=== PATIENT | female | born 1970 | race Caucasian/White ===

== ENCOUNTER 2021-05-21 11:23 | Outpatient (REF) | payer OTHER, SELFPAY ==
[2021-05-21 12:31] LABS: Influenza A PCR NEGATIVE (Negative); Influenza B PCR NEGATIVE (Negative); Resp Syncy Virus RNA Qual PCR NEGATIVE (Negative); SARS COV2 PCR INHOUSE POSITIVE (Negative)
== END 2021-05-21 11:24 | disposition home or self-care (01) ==
LOC: HO.LNP 11:23
PROVIDERS: Visit Provider Internal Medicine
DX: Z20.822 Contact with and (suspected) exposure to COVID-19 (principal); R43.9 Unspecified disturbances of smell and taste
CPT/HCPCS: 0241U

== ENCOUNTER 2021-08-05 07:37 | Outpatient (REF) | payer OTHER, SELFPAY ==
[2021-08-05 11:17] LABS: MANUAL DIFF FLAG NO
[2021-08-05 11:23] LABS: Basophils Absolute Auto 0.1 X10*3/uL (0.0-0.2); Eosinophils Absolute Auto 0.1 X10*3/uL (0.0-0.4); Eosinophils Percent Auto 2.1 % (0-4); Hematocrit 41.1 % (37.0-47.0); Hemoglobin 13.4 g/dl (12.0-16.0); Imm Gran Abs Auto 0.01 X10*3/uL (0.00-0.03); Imm Gran Pct Auto 0.2 % (0.0-0.4); Lymphocytes Absolute Auto 1.8 X10*3/uL (1.2-4.9); Lymphocytes Percent Auto 37.1 % (20-40); Mean Corpuscular HGB Conc 32.6 g/dl (31.0-35.0); Mean Corpuscular Volume 91.9 fL (80.0-98.0); Mean Platelet Volume 9.8 fL (9.4-12.3); Monocytes Absolute Auto 0.4 X10*3/uL (0.1-1.2); Monocytes Percent Auto 8.5 % (2-11); Neutrophils Absolute Auto 2.5 x10*3/uL (2.0-8.3); Neutrophils Percent Auto 51.1 % (45-73); Platelet Count 290 X10*3/uL (160-400); Red Blood Count 4.47 X10*6/uL (4.20-5.50); Red Cell Distribution Width 13.1 % (11.0-16.0); White Blood Count 4.8 X10*3/uL (4.8-10.8)
[2021-08-05 11:33] LABS: Alanine Aminotransferase 18 U/L (0-31); Albumin Level 4.5 g/dL (3.5-5.0); Alkaline Phosphatase 60 U/L (39-117); Anion Gap 10 (12-20); Aspartate Amino Transferase 17 U/L (5-31); Bilirubin Total 0.6 mg/dL (0.0-1.0); Blood Urea Nitrogen 16 mg/dL (9-16); Carbon Dioxide 28 mmol/L (22-29); Chloride 104 mmol/L (96-108); Cholesterol 206 mg/dL; Estimated Glomerular Filt Rate > 60; Glucose Fasting 96 mg/dL (60-99); HDL Cholesterol 58 mg/dL; LDL Cholesterol Calculated 120 mg/dl; Potassium 4.2 mmol/L (3.3-5.1); Sodium 138 mmol/L (135-145); Total Protein 7.6 g/dL (6.5-8.0); Triglycerides 140 mg/dL
[2021-08-05 11:58] LABS: TSH reflex Free T4 2.01 uIU/mL (0.32-4.0)
== END 2021-08-05 07:38 | disposition home or self-care (01) ==
LOC: HO.HMGCLDS 07:37
PROVIDERS: Visit Provider Internal Medicine
DX: E03.8 Other specified hypothyroidism (principal); F33.9 Major depressive disorder, recurrent, unspecified; I44.7 Left bundle-branch block, unspecified; J30.9 Allergic rhinitis, unspecified; Z91.09 Other allergy status, other than to drugs and biological substances; Z76.89 Persons encountering health services in other specified circumstances
CPT/HCPCS: 36415; 80053; 80061; 84443; 85025

== ENCOUNTER 2021-09-03 12:49 | Outpatient (REF) | payer OTHER, SELFPAY ==
--- NOTE | ~2021-09-03 | US_ITS ---
EXAMINATION: US THYROID CLINICAL INFORMATION: Other specified hypothyroidism. COMPARISON: None TECHNIQUE: Linear transducer grayscale and color Doppler examination with attention to the region of the thyroid. FINDINGS: SIZE: Measurements of the thyroid lobes and nodules are given in sagittal, anteroposterior and transverse dimensions respectively. Right Thyroid Lobe: 3.5 x 0.5 x 0.7 cm, volume 0.6 mL. Parenchyma: The gland echotexture is homogeneous. Thyroid vascularity is normal. Left Thyroid Lobe: 2.4 x 0.7 x 0.9 cm, volume 0.8 mL. Parenchyma: The gland echotexture is homogeneous. Thyroid vascularity is normal. Isthmus: 0.09 cm in maximum AP dimension. No focal thyroid nodule is seen. NODES: No lymphadenopathy is seen in the tissue surrounding the thyroid gland. US/US thyroid IMPRESSION: Very small thyroid gland.
== END 2021-09-03 12:50 | disposition home or self-care (01) ==
LOC: HO.HMGCX 12:49
PROVIDERS: Visit Provider Internal Medicine
DX: E01.0 Iodine-deficiency related diffuse (endemic) goiter (principal)
CPT/HCPCS: 76536

== ENCOUNTER → 2021-11-26 13:22 | Outpatient (BNVA) | payer OTHER, SELFPAY | PROVIDERS: PCP Internal Medicine; Visit Provider Nurse Practitioner Family | DX: M62.838 Other muscle spasm (principal); M47.814 Spondylosis without myelopathy or radiculopathy, thoracic region; Z87.81 Personal history of (healed) traumatic fracture | CPT/HCPCS: 99202 ==

== ENCOUNTER → 2021-12-24 14:55 | Outpatient (BNVA) | payer OTHER, SELFPAY | PROVIDERS: PCP Internal Medicine; Visit Provider Hospitalist | DX: R91.8 Other nonspecific abnormal finding of lung field (principal); J45.909 Unspecified asthma, uncomplicated; R06.00 Dyspnea, unspecified; S27.0XXD Traumatic pneumothorax, subsequent encounter; Z72.0 Tobacco use | CPT/HCPCS: 99202 ==

== ENCOUNTER → 2022-04-15 09:54 | Outpatient (BNVA) | payer OTHER, SELFPAY | PROVIDERS: PCP Internal Medicine; Visit Provider Nurse Practitioner Family | DX: Z12.11 Encounter for screening for malignant neoplasm of colon (principal); K59.01 Slow transit constipation | CPT/HCPCS: 99202 ==

== ENCOUNTER 2022-07-15 10:17 | Day surgery (SDC) | payer OTHER, SELFPAY ==
[2022-07-09 15:32] VITALS: BMI 24.3
--- NOTE | 2022-07-14 13:13 | HO.ANESPROP2 ---
Documented by User: Danay Goldberg NP 07/14/22 13:19 HPI - Anesthesia Eval Consult details Narrative: 52yo F for Colonoscopy Cardiac cleared PMF Active Problems Active Problems: All Active Problems (Updated 07/09/22 @ 15:19 by Tina Boyle, RN) Upper respiratory tract infection (Acute) Establishing care with new doctor, encounter for (Acute) Allergic rhinitis (Acute) Environmental allergies (Acute) Major depression, recurrent (Acute) Other specified hypothyroidism (Acute) Left bundle branch block (Acute) Thyromegaly (Acute) Colon cancer screening (Acute) Mid back pain (Acute) Traumatic fracture of thoracic spine (Acute) Lung nodule < 6cm on CT (Acute) H/O compression fracture of spine (Acute) Muscle spasm (Acute) Spondylosis of thoracic spine (Acute) Pulmonary nodules (Acute) Current every day nicotine vaping (Acute) Dyspnea (Acute) Acute pharyngitis (Acute) SARS-CoV-2 positive (Acute) Past Medical History Medical History (Updated 07/15/22 @ 11:19 by Bethany Loo MD) Anxiety Back pain Depression History of COVID-19 History of fractured vertebra Hyperlipidemia Hypothyroid Left bundle branch block Non-ischemic cardiomyopathy Pneumothorax, closed, traumatic Pulmonary nodules Sleep apnea Family History Family History Father Hypertension COPD (chronic obstructive pulmonary disease) Mother Hypertension Hypothyroid Surgical History Surgical History (Updated 07/09/22 @ 15:32 by Tina Boyle RN) Hx of cardiac catheterization Social History Social History Housing: House Patient Tobacco Use Status: Former Tobacco user Tobacco use type: Cigarette Years Smoked: 5 Years e-Cigarette/Vaping Use: Currently Using Use of substances other than those prescribed or required for medical reasons: No Have you been hit, kicked, punched, or otherwise hurt by someone within the past year? If so, by whom?: No Are you DNR?: No Advance Directives: No Advance Directives Information Provided: Yes (brochure mailed) Advance Directives on File: No Recently lost weight without trying: No Eating poorly because of decreased appetite: No Nutrition Risks: No Nutritional Risk Current occupational status: employed Cognitive needs: No Hearing needs: No Vision needs: Yes Meds Allergies Allergy/AdvReac Type Severity Reaction Status Date / Time penicillin V Allergy Mild hives Verified 04/25/22 13:02 Sulfa (Sulfonamide Allergy Mild hives Verified 04/25/22 13:02 Antibiotics) Home Medications Medication Instructions Recorded Confirmed Last Taken Type metoprolol succinate 25 mg 12.5 mg PO BEDTIME 05/21/21 07/09/22 Unknown History tablet,extended release 24 hr sacubitril 24 mg-valsartan 26 mg 1 tab PO BID 05/21/21 07/09/22 Unknown History tablet (Entresto) spironolactone 25 mg tablet 25 mg PO BEDTIME 05/21/21 07/09/22 Unknown History atorvastatin 10 mg tablet 10 mg PO BEDTIME 07/09/22 07/09/22 Unknown History bupropion HCl 150 mg 24 hr tablet, 150 mg PO QAM 07/09/22 07/09/22 Unknown History extended release duloxetine 20 mg capsule,delayed 20 mg PO BEDTIME 07/09/22 07/09/22 Unknown History release fluticasone propionate 50 1 spray intranasal DAILY 07/09/22 07/09/22 Unknown History mcg/actuation nasal spray,suspension levothyroxine 100 mcg tablet 100 mcg PO QAM 07/09/22 07/09/22 Unknown History Exam Exam Date and Time: July 14, 2022 1313 Height,Weight and Vital Signs: Height 5 ft 3 in Weight 62.142 kg Pertinent Lab Results Pertinent Lab Results: CMP 04/2022 from outside facility WNL Narrative Narrative: EKG 05/2022 NSR @ 84 LBBB No change from 11/2020 ECHO 10/2021 1. Nml LV size and wall thickness. Global hypokinesis. Abnormal septal motion 2. Mildly reduced LV systolic function. LVEF 40-45%. E-A reversal consistent with mild diastolic relaxation abnormality. 3. RV is normal in size and systolic function 4. Mild mitral regurg 5. LVEF has improved compared with 04/2020 Cardiac cath 05/2020: Nml coronary arteries. Nonischemic cardiomyopathy Assessment and Plan Assessment Anesthesia Assessment: Chart Reviewed Documented by User: Bethany Loo MD 07/15/22 12:06 [facility] Active Problems Active Problems: All Active Problems (Updated 07/09/22 @ 15:19 by Tina Boyle, RN) Establishing care with new doctor, encounter for (Acute) Allergic rhinitis (Acute) Environmental allergies (Acute) Major depression, recurrent (Acute) Other specified hypothyroidism (Acute) Left bundle branch block (Acute) Thyromegaly (Acute) Colon cancer screening (Acute) Mid back pain (Acute) Traumatic fracture of thoracic spine (Acute) Lung nodule < 6cm on CT (Acute) H/O compression fracture of spine (Acute) Muscle spasm (Acute) Spondylosis of thoracic spine (Acute) Pulmonary nodules (Acute) Current every day nicotine vaping (Acute) H/o heart failure. EF 40-45% FABBY. Not using CPAP. Unable to tolerate in the past Past Medical History Medical History (Updated 07/15/22 @ 11:19 by Bethany Loo MD) Anxiety Back pain Depression History of COVID-19 History of fractured vertebra Hyperlipidemia Hypothyroid Left bundle branch block Non-ischemic cardiomyopathy Pneumothorax, closed, traumatic Pulmonary nodules Sleep apnea Family History Family History Father Hypertension COPD (chronic obstructive pulmonary disease) Mother Hypertension Hypothyroid Family history of problems with anesthesia: No Surgical History Surgical History (Updated 07/09/22 @ 15:32 by Tina Boyle, BELLA) Hx of cardiac catheterization History of Problems with Anesthesia: No Social History Social History Housing: House Patient Tobacco Use Status: Former Tobacco user Tobacco use type: Cigarette Years Smoked: 5 Years e-Cigarette/Vaping Use: Currently Using Use of substances other than those prescribed or required for medical reasons: No Have you been hit, kicked, punched, or otherwise hurt by someone within the past year? If so, by whom?: No Are you DNR?: No Advance Directives: No Advance Directives Information Provided: Yes (brochure mailed) Advance Directives on File: No Recently lost weight without trying: No Eating poorly because of decreased appetite: No Nutrition Risks: No Nutritional Risk Current occupational status: employed Cognitive needs: No Hearing needs: No Vision needs: Yes Meds Allergies Allergy/AdvReac Type Severity Reaction Status Date / Time penicillin V Allergy Mild hives Verified 04/25/22 13:02 Sulfa (Sulfonamide Allergy Mild hives Verified 04/25/22 13:02 Antibiotics) Home Medications Medication Instructions Recorded Confirmed Last Taken Type metoprolol succinate 25 mg 12.5 mg PO BEDTIME 05/21/21 07/09/22 Unknown History tablet,extended release 24 hr sacubitril 24 mg-valsartan 26 mg 1 tab PO BID 05/21/21 07/09/22 Unknown History tablet (Entresto) spironolactone 25 mg tablet 25 mg PO BEDTIME 05/21/21 07/09/22 Unknown History atorvastatin 10 mg tablet 10 mg PO BEDTIME 07/09/22 07/09/22 Unknown History bupropion HCl 150 mg 24 hr tablet, 150 mg PO QAM 07/09/22 07/09/22 Unknown History extended release duloxetine 20 mg capsule,delayed 20 mg PO BEDTIME 07/09/22 07/09/22 Unknown History release fluticasone propionate 50 1 spray intranasal DAILY 07/09/22 07/09/22 Unknown History mcg/actuation nasal spray,suspension levothyroxine 100 mcg tablet 100 mcg PO QAM 07/09/22 07/09/22 Unknown History Exam Height,Weight and Vital Signs: Height 5 ft 3 in Weight 62.142 kg Vital Signs Temp Pulse Resp BP Pulse Ox O2 Del Method 07/15/22 11:14 97.5 F 89 16 91/58 L 95 Room Air Airway Mallampati Class: II TM Dist: >3cm Neck ROM: Full Loose/Missing/Broken Teeth: No (Denies broken, loose, missing teeth) Heart: RRR Lungs: CTAB Assessment and Plan Assessment Anesthesia Assessment: Anesthesia Plan Discussed Final Anesthetic Review Family History of Problems with Anesthesia: No History of Problems with Anesthesia: No NPO: Yes ASA Class: III Final Preanesthetic Review: No Changes in Pt Med Stat, Meds/Allgs Chart Reviewed, Consent Obtained/Reviewed and Anes Risks/Benef Reviewed Patient Risk: Intermediate Procedure Risk: Low Assessment/Block/Sedation in SS: Assess/Block/Sedation-SS Anesthetic Plan Anesthetic Plan: MAC: Disposition: Standard PACU
[2022-07-15 11:14] VITALS: BP 91/58; PULSE 89; RESP 16; TEMP 36.4; O2SAT 95
--- NOTE | 2022-07-15 11:14 | MHC.SHP ---
Pre-Procedural Eval Section A Date of Service: 07/15/22 Section B Chief Complaint: screening Details of Present Illness: sister and parents with polyps Relevant Family History (Specify if Yes): Yes Relevant Social History: Other (specify) (vaping ) Present Medications: see Short Stay Collaborative assessment Medical History: Significant History (Anxiety Back pain Depression History of COVID-19 History of fractured vertebra Hyperlipidemia Hypothyroid Left bundle branch block Non-ischemic cardiomyopathy Pneumothorax, closed, traumatic Pulmonary nodules Sleep apnea) History of Previous Operations: Relevant previous surgery/procedure and date(s) (cardiac cath ) Allergies: Allergies Allergy/AdvReac Type Severity Reaction Status Date / Time penicillin V Allergy Mild hives Verified 04/25/22 13:02 Sulfa (Sulfonamide Allergy Mild hives Verified 04/25/22 13:02 Antibiotics) Review of Systems Sugical H&P ROS: Negative: Constitution, Cardiovascular, Respiratory, Neurological, Psychiatric, Hem-Onc, Allergic/Immunologic, Gastrointestinal, Genitourinary, Musculoskeletal, Integumentary, Endocrine and Eyes/Ears/Nose/Throat Exam Surgical H&P Exam: Normal: HEENT, Normal: Heart, Normal: Lungs, Normal: Extremities, Normal: Abdomen, Normal: Skin and Normal: Neurological Plan Diagnosis/Plan: Unchanged I have reviewed the history and physical and performed a pertinent physical examination on my patient. No changes have occurred unless specified. Time Spent With Patient Time: Total time managing care of this patient today ____ minutes.
--- NOTE | 2022-07-15 11:15 | W.PM.OPN ---
Operative Note Operative Note Date of Service: 07/15/22 Narrative: Operative Information Procedure Description: Colonoscopy Indication: screening Anesthesia: MAC COLONOSCOPY Instrument: Olympus variable stiffness pediatric scope 190L Colonoscopy Monitoring: Vital signs and clinical assessment, continuous EKG monitoring, Pulse oximetry, Carbon Dioxide monitoring and blood pressure monitoring were done throughout the procedure. Colon withdrawal time was 12 minutes. Procedure: The patient was placed in the left lateral decubitis position and pre-procedure medications were administered. After a digital rectal examination of the ano-rectum, the video colonoscope was inserted into the rectum and advanced through the colon to the cecum/TI. The colonoscope was slowly withdrawn in a retrograde panoramic fashion and the colon mucosa was carefully examined including a retroflexed view of the rectum. Findings and interventions are described below. Procedure Difficulty: moderate due to tortuous colon Findings: Terminal Ileum-normal Cecum:normal Ascending Colon: few tics noted Transverse Colon -normal Descending Colon:normal Sigmoid Colon: normal Rectum: Retroflexion with small internal hemorrhoids, grade I Anorectum - normal Colon preparation: [place] Bowel Preparation Scale Right colon; 2 Transverse colon: 3 Left colon; 3 (0 = Unprepared colon segment with mucosa not seen due to solid stool that cannot be cleared. 1 = Portion of mucosa of the colon segment seen, but other areas of the colon segment not well seen due to staining, residual stool and/or opaque liquid. 2 = Minor amount of residual staining, small fragments of stool and/or opaque liquid, but mucosa of colon segment seen well. 3 = Entire mucosa of colon segment seen well with no residual staining, small fragments of stool or opaque liquid) Impression and Post Procedure Diagnosis: mild diverticulosis internal hemorrhoids tortuous colon Plan: High fiber diet leaflet Avoid straining at stool, epsom salts and sitz bath, anusol supps or cream Repeat Colonoscopy in 10 years or earlier if clinically indicated Above findings were reviewed with the patient and relevant handouts were provided if indicated.
[2022-07-15] MEDS: Lactated Ringers 1,000 ML 50 ML IVCONT (11:18)
[2022-07-15 12:05] VITALS: BP 112/54; PULSE 83; RESP 18; TEMP 36.1; O2SAT 100
[2022-07-15 12:10] VITALS: BP 99/56; PULSE 82; RESP 18; O2SAT 98
[2022-07-15 12:15] VITALS: BP 95/48; PULSE 83; RESP 18; O2SAT 97
[2022-07-15 12:20] VITALS: BP 103/68; PULSE 82; RESP 18; O2SAT 100
[2022-07-15 12:25] VITALS: BP 103/71; PULSE 79; RESP 18; TEMP 36.8; O2SAT 100
== END 2022-07-15 12:57 | disposition home or self-care (01) ==
PROVIDERS: PCP Internal Medicine; Visit Provider Internal Medicine Gastroenterology
PROC: 0DJD8ZZ Inspection of Lower Intestinal Tract, Via Natural or Artificial Opening Endoscopic (ICD-10-PCS; CPT 45378; principal; 2022-07-15 11:40)
DX: Z12.11 Encounter for screening for malignant neoplasm of colon (principal); Z83.71 Family history of colonic polyps; K57.30 Diverticulosis of large intestine without perforation or abscess without bleeding; K64.0 First degree hemorrhoids; K56.2 Volvulus; K59.01 Slow transit constipation; E78.5 Hyperlipidemia, unspecified; I44.7 Left bundle-branch block, unspecified; I42.8 Other cardiomyopathies; M54.9 Dorsalgia, unspecified; G47.33 Obstructive sleep apnea (adult) (pediatric); R91.8 Other nonspecific abnormal finding of lung field; F32.A Depression, unspecified; F41.1 Generalized anxiety disorder; F17.290 Nicotine dependence, other tobacco product, uncomplicated; Z86.16 Personal history of COVID-19
CPT/HCPCS: 45378

== ENCOUNTER 2022-07-22 07:35 | Outpatient (REF) | payer OTHER, SELFPAY ==
[2022-07-22 12:33] LABS: Alanine Aminotransferase 19 U/L (0-31); Albumin Level 4.4 g/dL (3.5-5.0); Alkaline Phosphatase 65 U/L (39-117); Anion Gap 14 (12-20); Aspartate Amino Transferase 17 U/L (5-31); Bilirubin Total 0.6 mg/dL (0.0-1.0); Blood Urea Nitrogen 12 mg/dL (9-16); Calcium 9.7 mg/dL (8.4-10.2); Carbon Dioxide 24 mmol/L (22-29); Chloride 105 mmol/L (96-108); Cholesterol 186 mg/dL; Estimated Glomerular Filt Rate > 60; Glucose Fasting 92 mg/dL (60-99); HDL Cholesterol 55 mg/dL; LDL Cholesterol Calculated 105 mg/dl; Potassium 4.2 mmol/L (3.3-5.1); Sodium 139 mmol/L (135-145); Total Protein 7.2 g/dL (6.5-8.0); Triglycerides 133 mg/dL
[2022-07-22 12:40] LABS: TSH reflex Free T4 3.64 uIU/mL (0.32-4.0)
[2022-07-23 07:43] LABS: Syphilis Screen Nonreactive (Nonreactive)
[2022-07-23 07:53] LABS: HBS Num1 0.09 mIU/mL (0-7.99); HBc Num1 0.13 S/CO (0.00-0.79); HBsAGNum1 0.31 S/CO (0.00-0.99); HIV AB/AG Nonreactive (Nonreactive); HIV Num 1 0.06 S/CO (0.00-0.99); Hepatitis A Antibody IgM 0.25 Index (0-0.79); Hepatitis B Core Antibody Nonreactive (Nonreactive); Hepatitis B Surface Antigen Negative (Negative); ~HepC Num1 0.11 S/CO (0.00-0.79); ~Hepatitis A Antibody IgM Nonreactive (Nonreactive); ~Hepatitis B Surface Antibody NONREACTIVE (Nonreactive); ~Hepatitis C Antibody Nonreactive (Nonreactive)
[2022-07-23 11:14] LABS: Herpes Simplex Type 1 IgG <0.90 index; Herpes Simplex Type 2 IgG 2.07 index
== END 2022-07-22 07:36 | disposition home or self-care (01) ==
LOC: HO.HMGCLDS 07:35
PROVIDERS: PCP Internal Medicine; Visit Provider Internal Medicine
DX: Z00.01 Encounter for general adult medical examination with abnormal findings (principal); Z11.4 Encounter for screening for human immunodeficiency virus [HIV]; Z11.3 Encounter for screening for infections with a predominantly sexual mode of transmission; E03.8 Other specified hypothyroidism; F33.9 Major depressive disorder, recurrent, unspecified; R91.8 Other nonspecific abnormal finding of lung field; Z91.09 Other allergy status, other than to drugs and biological substances; Z28.39 Other underimmunization status
CPT/HCPCS: 36415; 80053; 80061; 84443; 86695; 86696; 86704; 86706; 86709; 86735; 86762; 86765; 86780; 86787; 86803; 87340; 87389

== ENCOUNTER → 2022-07-29 08:04 | Outpatient (BNVA) | payer OTHER, SELFPAY | PROVIDERS: PCP Internal Medicine; Visit Provider Nurse Practitioner Family | DX: Z13.89 Encounter for screening for other disorder (principal) ==

== ENCOUNTER 2023-02-04 14:48 | Outpatient (AMB) | payer OTHER, SELFPAY ==
[2023-02-04 14:55] VITALS: BP 120/72; PULSE 97; O2SAT 96; BMI 25.0
--- NOTE | 2023-02-04 14:55 | A.OFFPC_ITS ---
Vital Signs 02/04/23 14:55 Height 5 ft 3 in Weight 141 lb 2 oz BMI 25.0 BP 120/72 Blood Pressure Location Rt brachial Position Sitting Pulse 97 Pulse Source Pulse Oximeter Pulse Oximetry (%) 96 Oxygen Delivery Method Room Air Intake Visit Reasons: 4 month follow up Medications Allergies penicillin V Allergy (Mild, Verified 02/04/23 14:56) hives Sulfa (Sulfonamide Antibiotics) Allergy (Mild, Verified 02/04/23 14:56) hives Medication List - Last Reconciled 02/04/23 by Patricio Painter MD atorvastatin 10 mg PO BEDTIME bupropion HCl 150 mg PO QAM dapagliflozin propanediol (Farxiga) 10 mg PO DAILY duloxetine 20 mg PO BEDTIME fluticasone propionate 50 mcg/actuation 1 spray intranasal DAILY levalbuterol tartrate 45 mcg/actuation (Xopenex HFA) 2 puffs inhalation Q6H PRN 30 days levothyroxine 100 mcg PO QAM metoprolol succinate ER 12.5 mg PO BEDTIME nicotine 1 patch transdermal Q24H 30 days polyethylene glycol 3350 (Miralax) 17 grams PO DAILY sacubitril-valsartan 24-26 mg (Entresto) 1 tab PO BID spironolactone 25 mg PO BEDTIME Tobacco use date assessed: 02/04/23 Dental Screening Dental Screen Date: 02/04/23 Did you have a dental visit in the last 12 months?: Yes Did you have a dental problem in the last 6 months where you did not have access to dental care?: No Was dental information given to patient?: No HPI 4 month follow up Medications HPI Details Patient is a 52-year-old female came in today for regular follow-up last time she was seen was June of this year and after that she did not come in for follow-up Patient says that she was very busy with her job so she could not come in We talked about the side effects of medication pre bleed is highly important that she see somebody every 3 months either me or Cardiology so we can keep an eye on side effects. She is seen manager of environmental services all her blood pressure medications and lipid medication is through Cardiology.? Recently patient had echocardiogram, report reviewed her ejection fraction is 40% she is currently seeing Dr. James ,[facility] Patient is taking Wellbutrin and duloxetine for anxiety and depression through PCP office She is taking cetirizine and Flonase for allergies through PCP office Hypothyroidism:? Patient is on levothyroxine 100 mcg through PCP office.? Labs are needed, order placed to be done fasting Patient says that recently she had some labs done through her OBGYN and she was found to have osteoporosis She need a referral to endocrinology for that she will provide bone density report and recent labs done to our office and then we will scan it in her chart for Endocrinology to review She has appointment in June for physical exam COUNT INCLUDES [facility] Medical History Anxiety Back pain Depression History of COVID-19 History of fractured vertebra Hyperlipidemia Hypothyroid Left bundle branch block Non-ischemic cardiomyopathy Pneumothorax, closed, traumatic Pulmonary nodule Pulmonary nodules Sleep apnea Surgical History Hx of cardiac catheterization Hx of colonoscopy Family History Father Hypertension COPD (chronic obstructive pulmonary disease) Mother Hypertension Hypothyroid Social History Housing: House Patient Tobacco Use Status: Former Tobacco user Tobacco use type: Cigarette Years Smoked: 5 Years e-Cigarette/Vaping Use: Currently Using service: No Current occupational status: employed Cognitive needs: No Hearing needs: No Vision needs: Yes Questionnaire Thrive Questionnaire Date Thrive assessed: 07/18/22 AUDIT C Alcohol Use Questionnaire (AUDIT-C) 1. How often do you have a drink containing alcohol?: Monthly or less 2. How many drinks containing alcohol do you have on a typical day when you are drinking?: 1 or 2 3. How often do you have six or more drinks on one occasion?: Never Total Score: 1 Score Reviewed/Action Taken: Yes TJ-7 AMB Questionnaire TJ-7 Date TJ - 7 assessed: 07/18/22 Source: Developed by Drs. Navi Purcell, Georgina Michelle, Jeremiah Marsh and colleagues, with an educational kae from [employer]. Review of Systems Const Denies chills and Denies fever(s) ENT Denies epistaxis and Denies nasal discharge Card Denies chest pain Resp Denies chest congestion, Denies cough and Denies hemoptysis GI Denies diarrhea and Denies nausea Skin/Breast Denies rash Neuro Reports no additional complaints Psych Reports no additional complaints Endo Reports no additional complaints Physical exam (Primary Care) Vital Signs: Last Vital Signs Pulse 97 02/04/23 14:55 BP 120/72 02/04/23 14:55 Pulse Ox 96 02/04/23 14:55 Oxygen Delivery Method Room Air 02/04/23 14:55 BMI result Body Mass Index 25.0 Tobacco/Smoking Status: Tobacco use Status Tobacco use date assessed 02/04/23 02/04/23 14:56 Patient Tobacco Use Status Former Tobacco user 02/04/23 14:56 Tobacco use type Cigarette 02/04/23 14:56 e-Cigarette/Vaping Use Currently Using 02/04/23 14:56 Thrive Assessment: Date of Thrive Assessment Date Thrive assessed 07/18/22 02/04/23 14:56 Const General: cooperative, comfortable and no acute distress Orientation/consciousness: patient oriented x3 HENMT Head: Yes normocephalic Eyes General: appearance normal, both eyes and all related structures Neck Neck: Yes supple Resp Effort & Inspection: normal respiratory effort, no cough and no stridor Cardio Rhythm: regular rhythm Heart sounds: S1 normal heart sound present and S2 normal heart sound present Skin General skin exam: turgor normal Neuro General: patient oriented x3, tone normal and moves all extremities Extrem Right lower extremity: no edema Left lower extremity: no edema Assessment and Plan Assessment & Plan (1) Other specified hypothyroidism: Code(s): E03.8 - Other specified hypothyroidism (2) Major depression, recurrent: Code(s): F33.9 - Major depressive disorder, recurrent, unspecified (3) Cardiomyopathy: Code(s): I42.9 - Cardiomyopathy, unspecified (4) Hypertension, essential: Code(s): I10 - Essential (primary) hypertension (5) Osteoporosis: Code(s): M81.0 - Age-related osteoporosis without current pathological fracture (6) Environmental allergies: Code(s): Z91.09 - Other allergy status, other than to drugs and biological substances Plan Patient is a 52-year-old female came in today for regular follow-up last time she was seen was June of this year and after that she did not come in for follow-up Patient says that she was very busy with her job so she could not come in We talked about the side effects of medication pre bleed is highly important that she see somebody every 3 months either me or Cardiology so we can keep an eye on side effects. She is seen manager of environmental services all her blood pressure medications and lipid medication is through Cardiology.? Recently patient had echocardiogram, report reviewed her ejection fraction is 40% she is currently seeing Dr. James ,[facility] Patient is taking Wellbutrin and duloxetine for anxiety and depression through PCP office She is taking cetirizine and Flonase for allergies through PCP office Hypothyroidism:? Patient is on levothyroxine 100 mcg through PCP office.? Labs are needed, order placed to be done fasting Patient says that recently she had some labs done through her OBGYN and she was found to have osteoporosis She need a referral to endocrinology for that she will provide bone density report and recent labs done to our office and then we will scan it in her chart for Endocrinology to review She has appointment in June for physical exam Orders: Orders Comprehensive Ismay. Panel Fast Today E03.8 - Other specified hypothyroidism, F33.9 - Major depressive disorder, recurrent, unspecified, I10 - Essential (primary) hypertension, I42.9 - Cardiomyopathy, unspecified Lipid Panel Today E03.8 - Other specified hypothyroidism, F33.9 - Major depressive disorder, recurrent, unspecified, I10 - Essential (primary) hypertension, I42.9 - Cardiomyopathy, unspecified TSH reflex Free T4 Today E03.8 - Other specified hypothyroidism, F33.9 - Major depressive disorder, recurrent, unspecified, I10 - Essential (primary) hypertension, I42.9 - Cardiomyopathy, unspecified Complete Blood Count Auto Diff Today E03.8 - Other specified hypothyroidism, F33.9 - Major depressive disorder, recurrent, unspecified, I10 - Essential (primary) hypertension, I42.9 - Cardiomyopathy, unspecified Referrals Endocrinology Referral M81.0 - Age-related osteoporosis without current pathological fracture Medications: Refilled bupropion HCl 150 mg PO QAM 90 tabs 1RF duloxetine 20 mg PO BEDTIME 90 caps 1RF levothyroxine 100 mcg PO QAM 90 tabs 1RF fluticasone propionate 50 mcg/actuation 1 spray intranasal DAILY 16 grams 1RF atorvastatin 10 mg PO BEDTIME 90 tabs 1RF Coding Level of Care Code Est Pt Level 4 (85142) Diagnoses Other specified hypothyroidism E03.8 Major depression, recurrent F33.9 Cardiomyopathy I42.9 Hypertension, essential I10 Osteoporosis M81.0 Environmental allergies Z91.09
== END 2023-02-04 15:26 | disposition home or self-care (01) ==
PROVIDERS: PCP Internal Medicine; Visit Provider Internal Medicine
DX: I10 Essential (primary) hypertension (principal); E03.8 Other specified hypothyroidism; F33.9 Major depressive disorder, recurrent, unspecified; I42.9 Cardiomyopathy, unspecified; M81.0 Age-related osteoporosis without current pathological fracture; Z91.09 Other allergy status, other than to drugs and biological substances
CPT/HCPCS: 99214

== ENCOUNTER 2023-03-19 10:13 | Outpatient (AMB) | payer OTHER, SELFPAY ==
--- NOTE | 2023-03-19 10:13 | A.OFFPC_ITS ---
Intake Visit Reasons: Discuss Labs ~ Allergies penicillin V Allergy (Mild, Verified 03/19/23 10:19) hives Sulfa (Sulfonamide Antibiotics) Allergy (Mild, Verified 03/19/23 10:19) hives Medication List - Last Reconciled 03/19/23 by Patricio Painter MD atorvastatin 10 mg PO BEDTIME bupropion HCl 150 mg PO QAM dapagliflozin propanediol (Farxiga) 10 mg PO DAILY duloxetine 20 mg PO BEDTIME fluticasone propionate 50 mcg/actuation 1 spray intranasal DAILY levalbuterol tartrate 45 mcg/actuation (Xopenex HFA) 2 puffs inhalation Q6H PRN 30 days levothyroxine 100 mcg PO QAM metoprolol succinate ER 12.5 mg PO BEDTIME polyethylene glycol 3350 (Miralax) 17 grams PO DAILY sacubitril-valsartan 24-26 mg (Entresto) 1 tab PO BID spironolactone 25 mg PO BEDTIME Tobacco use date assessed: 03/19/23 Dental Screening Dental Screen Date: 03/19/23 Did you have a dental visit in the last 12 months?: Yes Did you have a dental problem in the last 6 months where you did not have access to dental care?: No Was dental information given to patient?: Patient has dentist HPI Discuss Labs ~ HPI Details Patient is 52-year-old female who wanted to go over her labs from early this year. Patient have hypothyroidism and osteoporosis. She is taking levothyroxine 100 mcg. Her TSH level is normal, patient have booked and endocrinology appointment with Dr. Peter Townsend with [facility] endocrinology. She saw me in January I did place order for new set of labs which patient has not done yet. 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 Kidney functions liver functions and blood sugar is within normal range her lipids are well controlled. [facility] Medical History Pulmonary nodule Anxiety Non-ischemic cardiomyopathy Sleep apnea Back pain Pulmonary nodules Depression History of fractured vertebra History of COVID-19 Pneumothorax, closed, traumatic Hypothyroid Left bundle branch block Hyperlipidemia Surgical History Hx of colonoscopy Hx of cardiac catheterization Family History Father Hypertension COPD (chronic obstructive pulmonary disease) Mother Hypertension Hypothyroid Social History Housing: House Patient Tobacco Use Status: Former Tobacco user Tobacco use type: Cigarette Years Smoked: 5 Years e-Cigarette/Vaping Use: Currently Using service: No Current occupational status: employed Cognitive needs: No Hearing needs: No Vision needs: Yes Questionnaire Thrive Questionnaire Date Thrive assessed: 07/18/22 AUDIT C Alcohol Use Questionnaire (AUDIT-C) 1. How often do you have a drink containing alcohol?: Monthly or less 2. How many drinks containing alcohol do you have on a typical day when you are drinking?: 1 or 2 3. How often do you have six or more drinks on one occasion?: Never Total Score: 1 Score Reviewed/Action Taken: Yes TJ-7 AMB Questionnaire TJ-7 Date TJ - 7 assessed: 07/18/22 Source: Developed by Drs. Navi Purcell, Georgina Michelle, Jeremiah Marsh and colleagues, with an educational kae from [employer]. Physical exam (Primary Care) Tobacco/Smoking Status: Tobacco use Status Tobacco use date assessed 03/19/23 03/19/23 10:21 Patient Tobacco Use Status Former Tobacco user 03/19/23 10:21 Tobacco use type Cigarette 03/19/23 10:21 e-Cigarette/Vaping Use Currently Using 03/19/23 10:21 Thrive Assessment: Date of Thrive Assessment Date Thrive assessed 07/18/22 03/19/23 10:21 Telehealth Telehealth Location of provider rendering services: practice address Location of patient: address on file Patient Identification confirmed using: Name, : Yes Telehealth method: voice only Patient verbally consented to treatment: Yes Patient verbally consented to billing insurance company: Yes Patient informed of any privacy concerns related to visit: Yes Minutes spent on Phone/Video with Pt.: 11 Assessment and Plan Assessment & Plan (1) Other specified hypothyroidism: Code(s): E03.8 - Other specified hypothyroidism Plan Patient is 52-year-old female who wanted to go over her labs from early this year. Patient have hypothyroidism and osteoporosis. She is taking levothyroxine 100 mcg. Her TSH level is normal, patient have booked and endocrinology appointment with Dr. Peter Townsend with [facility] endocrinology. She saw me in January I did place order for new set of labs which patient has not done yet. 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 Kidney functions liver functions and blood sugar is within normal range her lipids are well controlled. Coding Level of Care Code Tele Est Pt Level 2 (80494) Diagnoses Other specified hypothyroidism E03.8
== END 2023-03-19 12:55 | disposition home or self-care (01) ==
LOC: HO.HMGC 10:13
PROVIDERS: PCP Internal Medicine; Visit Provider Internal Medicine
DX: E03.8 Other specified hypothyroidism (principal)
CPT/HCPCS: 99212

== ENCOUNTER 2023-03-30 07:39 | Outpatient (REF) | payer OTHER, SELFPAY ==
[2023-03-30 11:18] LABS: MANUAL DIFF FLAG NO
[2023-03-30 11:46] LABS: Basophils Percent Auto 0.9 % (0-2); Eosinophils Absolute Auto 0.1 X10*3/uL (0.0-0.4); Eosinophils Percent Auto 1.7 % (0-4); Hematocrit 43.3 % (37.0-47.0); Hemoglobin 14.1 g/dl (12.0-16.0); Imm Gran Abs Auto 0.01 X10*3/uL (0.00-0.03); Imm Gran Pct Auto 0.2 % (0.0-0.4); Lymphocytes Absolute Auto 1.7 X10*3/uL (1.2-4.9); Lymphocytes Percent Auto 36.7 % (20-40); Mean Corpuscular HGB Conc 32.6 g/dl (31.0-35.0); Mean Corpuscular Hemoglobin 30.1 pg (27.0-33.0); Mean Corpuscular Volume 92.5 fL (80.0-98.0); Monocytes Absolute Auto 0.5 X10*3/uL (0.1-1.2); Monocytes Percent Auto 11.1 % (2-11); Neutrophils Absolute Auto 2.3 x10*3/uL (2.0-8.3); Neutrophils Percent Auto 49.4 % (45-73); Platelet Count 248 X10*3/uL (160-400); Red Blood Count 4.68 X10*6/uL (4.20-5.50); Red Cell Distribution Width 13.2 % (11.0-16.0); White Blood Count 4.6 X10*3/uL (4.8-10.8)
[2023-03-30 12:13] LABS: Alanine Aminotransferase 17 U/L (0-31); Albumin Level 4.4 g/dL (3.5-5.0); Alkaline Phosphatase 63 U/L (39-117); Anion Gap 14 (12-20); Aspartate Amino Transferase 19 U/L (5-31); Bilirubin Total 0.6 mg/dL (0.0-1.0); Blood Urea Nitrogen 12 mg/dL (9-16); Calcium 9.7 mg/dL (8.4-10.2); Carbon Dioxide 26 mmol/L (22-29); Chloride 103 mmol/L (96-108); Cholesterol 185 mg/dL (<200); Estimated Glomerular Filt Rate > 60; Glucose Fasting 87 mg/dL (60-99); HDL Cholesterol 62 mg/dL (>40); LDL Cholesterol Calculated 106 mg/dL (<100); Sodium 139 mmol/L (135-145); Total Protein 7.3 g/dL (6.5-8.0); Triglycerides 85 mg/dL (<150)
[2023-03-30 12:37] LABS: TSH reflex Free T4 2.25 uIU/mL (0.32-4.0)
== END 2023-03-30 07:40 | disposition home or self-care (01) ==
LOC: HO.HMGCLDS 07:39
PROVIDERS: PCP Internal Medicine; Visit Provider Internal Medicine
DX: E03.8 Other specified hypothyroidism (principal); F33.9 Major depressive disorder, recurrent, unspecified; I42.9 Cardiomyopathy, unspecified; I10 Essential (primary) hypertension
CPT/HCPCS: 36415; 80053; 80061; 84443; 85025

== ENCOUNTER 2023-07-07 15:39 | Outpatient (AMB) | payer OTHER, SELFPAY ==
[2023-07-07 15:47] VITALS: PULSE 84; O2SAT 100; BMI 24.3
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
== END 2023-07-07 16:18 | disposition home or self-care (01) ==
PROVIDERS: PCP Internal Medicine; Visit Provider Hospitalist
DX: R91.1 Solitary pulmonary nodule (principal); F17.290 Nicotine dependence, other tobacco product, uncomplicated; S22.000A Wedge compression fracture of unspecified thoracic vertebra, initial encounter for closed fracture
CPT/HCPCS: 99214

== ENCOUNTER → 2023-07-07 15:39 | Outpatient (BNVA) | payer OTHER, SELFPAY | PROVIDERS: PCP Internal Medicine; Visit Provider Hospitalist ==

== ENCOUNTER 2023-07-21 15:23 | Outpatient (AMB) | payer OTHER, SELFPAY ==
--- NOTE | 2023-07-21 15:29 | MHC.PC.OV ---
Vital Signs 07/21/23 15:30 Height 5 ft 3 in Weight 148 lb 2 oz BMI 26.2 BP 118/74 Blood Pressure Location Lt brachial Position Sitting Pulse 76 Pulse Source Pulse Oximeter Pulse Oximetry (%) 99 Oxygen Delivery Method Room Air Intake Visit Reasons: Annual PE Allergies penicillin V Allergy (Mild, Verified 07/21/23 15:30) hives Sulfa (Sulfonamide Antibiotics) Allergy (Mild, Verified 07/21/23 15:30) hives Medication List - Last Reconciled 07/21/23 by Patricio Painter MD atorvastatin 10 mg PO BEDTIME bupropion HCl 150 mg PO QAM dapagliflozin propanediol (Farxiga) 10 mg PO DAILY duloxetine 20 mg PO BEDTIME fluticasone propionate 50 mcg/actuation 1 spray intranasal DAILY levalbuterol tartrate 45 mcg/actuation (Xopenex HFA) 2 puffs inhalation Q6H PRN 30 days levothyroxine 100 mcg PO QAM metoprolol succinate ER 12.5 mg PO BEDTIME nicotine 1 patch transdermal DAILY 28 days polyethylene glycol 3350 (Miralax) 17 grams PO DAILY sacubitril-valsartan 24-26 mg (Entresto) 1 tab PO BID spironolactone 25 mg PO BEDTIME Tobacco use date assessed: 07/21/23 Dental Screening Dental Screen Date: 07/21/23 Did you have a dental visit in the last 12 months?: Yes Did you have a dental problem in the last 6 months where you did not have access to dental care?: No Was dental information given to patient?: Patient has dentist HPI Annual PE HPI Details Patient is a 73-year-old female came in today for physical exam Mammogram is up-to-date Pap smear through OBGYN Colonoscopy summer 2022 at [facility], next 1 will be in 7 years because patient have a family history of colon polyps in father Her colonoscopy showed diverticulosis but no polyps She is seen production assembler all her blood pressure medications and lipid medication is through Cardiology.? Her ejection fraction is 40% she is currently seeing Dr. James ,[facility] Cardiology Last visit was April of 2023, consultation report reviewed Patient is taking Wellbutrin and duloxetine for anxiety and depression through PCP office She is taking cetirizine and Flonase for allergies through PCP office, she is getting cetirizine [id number] and she will look into Flonase as well Hypothyroidism:? Patient is on levothyroxine 100 mcg through endocrinology Osteoporosis management through endocrinology Follow-up 6 months physical exam 1 year Labs through Cardiology and endocrinology offices [facility] Medical History Compression fracture of body of thoracic vertebra Vaping nicotine dependence, tobacco product Pulmonary nodule Anxiety Non-ischemic cardiomyopathy Sleep apnea Back pain Pulmonary nodules Depression History of fractured vertebra History of COVID-19 Pneumothorax, closed, traumatic Hypothyroid Left bundle branch block Hyperlipidemia Surgical History Hx of colonoscopy Hx of cardiac catheterization Family History Father Hypertension COPD (chronic obstructive pulmonary disease) Mother Hypertension Hypothyroid Social History Housing: House Patient Tobacco Use Status: Former Tobacco user Tobacco use type: Cigarette Years Smoked: 5 Years e-Cigarette/Vaping Use: Currently Using service: No Current occupational status: employed Cognitive needs: No Hearing needs: No Vision needs: Yes Questionnaire Thrive Questionnaire Date Thrive assessed: 07/18/22 AUDIT C Alcohol Use Questionnaire (AUDIT-C) 1. How often do you have a drink containing alcohol?: Monthly or less 2. How many drinks containing alcohol do you have on a typical day when you are drinking?: 1 or 2 3. How often do you have six or more drinks on one occasion?: Never Total Score: 1 Score Reviewed/Action Taken: Yes TJ-7 AMB Questionnaire TJ-7 Date TJ - 7 assessed: 07/18/22 Source: Developed by Drs. Navi Purcell, Georgina Michelle, Jeremiah Marsh and colleagues, with an educational kae from [employer]. Review of Systems Const Denies chills, Denies fever(s) and Denies headache(s) Eyes Denies blurry vision ENT Denies headache(s), Denies nasal discharge, Denies nasal obstruction, Denies odynophagia and Denies sinus pain Card Denies chest pain at rest and Denies chest pain with activity Resp Denies cough and Denies hemoptysis GI Denies diarrhea, Denies odynophagia, Denies vomiting and Denies hematemesis Reports as per HPI Musc Denies abnormal gait Skin/Breast Reports as per HPI Neuro Denies Neuro-related abnormal movements, Denies Abnormal speech present, Denies abnormal gait, Denies headache(s) and Denies Sensory deficit (Neuro) Psych Denies mood swings and Denies paranoia Endo Reports as per HPI Krishna/Lymph Reports as per HPI Aller/Immun Reports as per HPI Physical exam (Primary Care) Vital Signs: Last Vital Signs Pulse 76 07/21/23 15:30 BP 118/74 07/21/23 15:30 Pulse Ox 99 07/21/23 15:30 Oxygen Delivery Method Room Air 07/21/23 15:30 BMI result Body Mass Index 26.2 Tobacco/Smoking Status: Tobacco use Status Tobacco use date assessed 07/21/23 07/21/23 15:32 Patient Tobacco Use Status Former Tobacco user 07/21/23 15:32 Tobacco use type Cigarette 07/21/23 15:32 e-Cigarette/Vaping Use Currently Using 07/21/23 15:32 Thrive Assessment: Date of Thrive Assessment Date Thrive assessed 07/18/22 07/21/23 15:32 Const General: cooperative, comfortable and no acute distress Orientation/consciousness: patient oriented x3 HENMT Head: Yes normocephalic and Yes atraumatic Eyes General: appearance normal, both eyes and all related structures Pupils: Equal, round and reactive pupils present EOM: EOMs intact bilaterally Neck Neck: Yes supple and No lymphadenopathy Thyroid: Thyroid normal Lymphatic: no lymphadenopathy noted Resp Effort & Inspection: normal respiratory effort and able to speak in complete sentences Auscultation: clear to auscultation bilaterally Cardio Heart sounds: S1 normal heart sound present and S2 normal heart sound present GI Palpation (GI): Soft to palpation and nontender Auscultation: normal bowel sounds General: Yes no CVA tenderness Back/Spine/Pelvis Back: no CVA tenderness Skin General skin exam: elasticity normal and turgor normal Neuro General: patient oriented x3 and gait normal Cranial nerves: Yes Equal, round and reactive pupils present Speech: No Abnormal speech present Sensory Exam: No Sensory deficit (Neuro) Coordination: tandem gait normal and Romberg test negative Extrem General: Yes normal exam except as noted and No edema Assessment and Plan Assessment & Plan (1) Encounter for general adult medical examination with abnormal findings: Code(s): Z00.01 - Encounter for general adult medical examination with abnormal findings (2) Cardiomyopathy: Code(s): I42.9 - Cardiomyopathy, unspecified Qualifiers: Cardiomyopathy type: unspecified Qualified Code(s): I42.9 - Cardiomyopathy, unspecified (3) Hypertension, essential: Code(s): I10 - Essential (primary) hypertension (4) Osteoporosis: Code(s): M81.0 - Age-related osteoporosis without current pathological fracture Qualifiers: Osteoporosis type: age-related Presence of current pathological fracture: unspecified Qualified Code(s): M81.0 - Age-related osteoporosis without current pathological fracture (5) Allergic rhinitis: Code(s): J30.9 - Allergic rhinitis, unspecified Qualifiers: Allergic rhinitis trigger: other Allergic rhinitis seasonality: unspecified Qualified Code(s): J30.89 - Other allergic rhinitis (6) Environmental allergies: Code(s): Z91.09 - Other allergy status, other than to drugs and biological substances (7) Major depression, recurrent: Code(s): F33.9 - Major depressive disorder, recurrent, unspecified Qualifiers: Active/Remission status: in full remission Qualified Code(s): F33.42 - Major depressive disorder, recurrent, in full remission (8) Other specified hypothyroidism: Code(s): E03.8 - Other specified hypothyroidism (9) Spondylosis of thoracic spine: Code(s): M47.814 - Spondylosis without myelopathy or radiculopathy, thoracic region Plan Patient is a 73-year-old female came in today for physical exam Mammogram is up-to-date Pap smear through OBGYN Colonoscopy summer 2022 at [facility], next 1 will be in 7 years because patient have a family history of colon polyps in father Her colonoscopy showed diverticulosis but no polyps She is seen production assembler all her blood pressure medications and lipid medication is through Cardiology.? Her ejection fraction is 40% she is currently seeing Dr. James ,[facility] Cardiology patient had cardiac catheterization done May of 2022 which showed normal coronary arteries Last visit was April of 2023, consultation report reviewed Patient is taking Wellbutrin and duloxetine for anxiety and depression through PCP office She is taking cetirizine and Flonase for allergies through PCP office, she is getting cetirizine [id number] and she will look into Flonase as well Hypothyroidism:? Patient is on levothyroxine 100 mcg through endocrinology Osteoporosis management through endocrinology Follow-up 6 months physical exam 1 year Labs through Cardiology and endocrinology offices Coding Level of Care Code Est Pt Prev Care 40-64y(58408) Diagnoses Encounter for general adult medical examination with abnormal findings Z00.01 Cardiomyopathy, unspecified type I42.9 Cardiomyopathy type: unspecified Hypertension, essential I10 Age related osteoporosis, unspecified pathological fracture presence M81.0 Osteoporosis type: age-related Presence of current pathological fracture: unspecified Allergic rhinitis due to other allergic trigger, unspecified seasonality J30.89 Allergic rhinitis trigger: other Allergic rhinitis seasonality: unspecified Environmental allergies Z91.09 Recurrent major depressive disorder, in full remission F33.42 Active/Remission status: in full remission Other specified hypothyroidism E03.8 Spondylosis of thoracic spine M47.814
[2023-07-21 15:30] VITALS: BP 118/74; PULSE 76; O2SAT 99; BMI 26.2
== END 2023-07-21 16:00 | disposition home or self-care (01) ==
PROVIDERS: Visit Provider Internal Medicine
DX: Z00.00 Encounter for general adult medical examination without abnormal findings (principal); I42.9 Cardiomyopathy, unspecified; F33.42 Major depressive disorder, recurrent, in full remission; I10 Essential (primary) hypertension; M81.0 Age-related osteoporosis without current pathological fracture; J30.89 Other allergic rhinitis; Z91.09 Other allergy status, other than to drugs and biological substances; E03.8 Other specified hypothyroidism; M47.814 Spondylosis without myelopathy or radiculopathy, thoracic region
CPT/HCPCS: 99396

== ENCOUNTER 2024-01-19 15:10 | Outpatient (AMB) | payer OTHER, SELFPAY ==
--- NOTE | 2024-01-19 15:13 | MHC.PC.OV ---
Vital Signs 01/19/24 15:14 Height 5 ft 3 in Weight 142 lb 6 oz BMI 25.2 BP 110/66 Blood Pressure Location Rt brachial Position Sitting Pulse 80 Pulse Source Pulse Oximeter Pulse Oximetry (%) 96 Oxygen Delivery Method Room Air Intake Visit Reasons: 6 month follow up Allergies penicillin V Allergy (Mild, Verified 01/19/24 15:17) hives Sulfa (Sulfonamide Antibiotics) Allergy (Mild, Verified 01/19/24 15:17) hives Medication List - Last Reconciled 01/19/24 by Patricio Painter MD atorvastatin 10 mg PO BEDTIME bupropion HCl XL 150 mg PO QAM dapagliflozin propanediol (Farxiga) 10 mg PO DAILY duloxetine 20 mg PO BEDTIME fluticasone propionate 50 mcg/actuation 1 spray intranasal DAILY levalbuterol tartrate 45 mcg/actuation (Xopenex HFA) 2 puffs inhalation Q6H PRN 30 days levothyroxine 100 mcg PO QAM metoprolol succinate ER 12.5 mg PO BEDTIME nicotine 1 patch transdermal DAILY 28 days polyethylene glycol 3350 (Miralax) 17 grams PO DAILY sacubitril-valsartan 24-26 mg (Entresto) 1 tab PO BID spironolactone 25 mg PO BEDTIME Tobacco use date assessed: 01/19/24 Dental Screening Dental Screen Date: 01/19/24 Did you have a dental visit in the last 12 months?: Yes Did you have a dental problem in the last 6 months where you did not have access to dental care?: No Was dental information given to patient?: Patient has dentist HPI 6 month follow up HPI Details Patient is a 53-year-old female came in today for six-month follow-up appointment Patient is complaining of feeling diet and having lack of energy Mood tubbs she is stable She is questioning if we could increase Wellbutrin to b.i.d. She says that she get to me, if she want to increase Wellbutrin We will continue duloxetine 20 mg daily She is seen caseworker intake all her blood pressure medications and lipid medication is through Cardiology.? she is currently seeing Dr. James , [facility] Cardiology patient had cardiac catheterization done May of 2022 which showed normal coronary arteries She is taking cetirizine and Flonase for allergies , she is getting cetirizine [id number] Hypothyroidism:? Patient is on levothyroxine 100 mcg through endocrinology Osteoporosis management through endocrinology Wellbutrin, duloxetine and allergy management is through PCP office Labs are done through Cardiology and endocrinology office [facility] Medical History Compression fracture of body of thoracic vertebra Vaping nicotine dependence, tobacco product Pulmonary nodule Anxiety Non-ischemic cardiomyopathy Sleep apnea Back pain Pulmonary nodules Depression History of fractured vertebra History of COVID-19 Pneumothorax, closed, traumatic Hypothyroid Left bundle branch block Hyperlipidemia Surgical History Hx of colonoscopy Hx of cardiac catheterization Family History Father Hypertension COPD (chronic obstructive pulmonary disease) Mother Hypertension Hypothyroid Social History Housing: House Patient Tobacco Use Status: Former Tobacco user Tobacco use type: Cigarette Years Smoked: 5 Years e-Cigarette/Vaping Use: Currently Using service: No Current occupational status: employed Cognitive needs: No Hearing needs: No Vision needs: Yes Questionnaire PHQ-9 Over the last 2 weeks, how often have you been bothered by any of the following problems? 1. Little interest or pleasure in doing things: several days 2. Feeling down, depressed, or hopeless: not at all 3. Trouble falling or staying asleep, or sleeping too much: several days 4. Feeling tired or having little energy: several days 5. Poor appetite or overeating: not at all 6. Feeling bad about yourself - or that you are a failure or have let yourself or your family down: not at all 7. Trouble concentrating on things, such as reading the newspaper or watching television: not at all 8. Moving or speaking so slowly that other people could have noticed. Or the opposite - being so fidgety or restless that you have been moving around a lot more than usual: not at all 9. Thoughts that you would be better off or of hurting yourself in some way: not at all Total score: 3 Depression Screening Interpretation: Negative Depression Screening Done: Yes 44899 - PHQ-9 Billing: Yes Source: Developed by Georgina RandhawaW. Miguel Angel, Jeremiah Marsh and colleagues, with an educational kae from [employer]. Thrive Questionnaire Date Thrive assessed: 01/19/24 I am a: Patient What is your living situation today?: I have a steady place to live Within the past 12 months, did the food you bought not last and you didn't have the money to get more?: Never true Within the past 12 months, did you worry whether your food would run out before you got money to buy more?: Never true Do you have trouble paying for medicines?: No Do you have trouble getting transportation to medical appointments?: No Do you have trouble paying your heating and electricity bill?: No Do you have trouble taking care of your child, family member or friend?: No Do you have trouble with day-to-day activities such as bathing, preparing meals, shopping, managing finances, etc.?: No Are you currently unemployed and looking for a job?: No Are you interested in more education?: No Please select the resources that you would like help with: Housing/Long Term Currently or been in a relationship where the following occur: No concerns reported THRIVE Score: 0 AUDIT C Alcohol Use Questionnaire (AUDIT-C) 1. How often do you have a drink containing alcohol?: 2-4 times a month 2. How many drinks containing alcohol do you have on a typical day when you are drinking?: 1 or 2 3. How often do you have six or more drinks on one occasion?: Never Total Score: 2 Score Reviewed/Action Taken: Yes TJ-7 AMB Questionnaire TJ-7 Date TJ - 7 assessed: 01/19/24 Feeling nervous, anxious, or on edge: 0 = Not at all Not being able to stop or control worryin = Not at all Worrying too much about different things: 0 = Not at all Trouble relaxin = Not at all Being so restless that it is hard to sit still: 0 = Not at all Becoming easily annoyed or irritable: 1 = Several days Feeling afraid as if something awful might happen: 0 = Not at all Total TJ-7 score (0-4 normal; 5-9 mild; 10-14 moderate; 15-21 severe): 1 Source: Developed by Drs. Navi Purcell, Georgina Michelle, Jeremiah Marsh and colleagues, with an educational kae from [employer]. TJ-7 Assessment Billing TJ-7 Assessment Tool: TJ-7 Assessment 89557 Review of Systems Const Denies chills and Denies fever(s) ENT Denies epistaxis and Denies nasal discharge Card Denies chest pain Resp Denies chest congestion, Denies cough and Denies hemoptysis GI Denies diarrhea and Denies nausea Skin/Breast Denies rash Neuro Reports no additional complaints Psych Reports no additional complaints Endo Reports no additional complaints Physical exam (Primary Care) Vital Signs: Last Vital Signs Pulse 80 01/19/24 15:14 BP 110/66 01/19/24 15:14 Pulse Ox 96 01/19/24 15:14 Oxygen Delivery Method Room Air 01/19/24 15:14 BMI result Body Mass Index 25.2 Tobacco/Smoking Status: Tobacco use Status Tobacco use date assessed 01/19/24 01/19/24 15:18 Patient Tobacco Use Status Former Tobacco user 01/19/24 15:13 Tobacco use type Cigarette 01/19/24 15:13 e-Cigarette/Vaping Use Currently Using 01/19/24 15:13 PHQ-9: PHQ-9 Score PHQ-9: Total score 3 01/19/24 15:18 Depression Screening Interpretation: Negative Thrive Assessment: Date of Thrive Assessment Date Thrive assessed 01/19/24 01/19/24 15:18 Currently or been in a relationship where the following occur: No concerns reported Const General: cooperative, comfortable and no acute distress Orientation/consciousness: patient oriented x3 HENMT Head: Yes normocephalic Eyes General: appearance normal, both eyes and all related structures Neck Neck: Yes supple Resp Effort & Inspection: normal respiratory effort, no cough and no stridor Cardio Rhythm: regular rhythm Heart sounds: S1 normal heart sound present and S2 normal heart sound present Skin General skin exam: turgor normal Neuro General: patient oriented x3, tone normal and moves all extremities Extrem Right lower extremity: no edema Left lower extremity: no edema Assessment and Plan Assessment & Plan (1) Major depression, recurrent: Code(s): F33.9 - Major depressive disorder, recurrent, unspecified Qualifiers: Active/Remission status: in full remission Qualified Code(s): F33.42 - Major depressive disorder, recurrent, in full remission (2) Cardiomyopathy: Code(s): I42.9 - Cardiomyopathy, unspecified Qualifiers: Cardiomyopathy type: unspecified Qualified Code(s): I42.9 - Cardiomyopathy, unspecified (3) Other specified hypothyroidism: Code(s): E03.8 - Other specified hypothyroidism (4) Hypertension, essential: Code(s): I10 - Essential (primary) hypertension (5) Osteoporosis: Code(s): M81.0 - Age-related osteoporosis without current pathological fracture Qualifiers: Osteoporosis type: age-related Presence of current pathological fracture: unspecified Qualified Code(s): M81.0 - Age-related osteoporosis without current pathological fracture (6) Allergic rhinitis: Code(s): J30.9 - Allergic rhinitis, unspecified Qualifiers: Allergic rhinitis trigger: other Allergic rhinitis seasonality: unspecified Qualified Code(s): J30.89 - Other allergic rhinitis (7) Environmental allergies: Code(s): Z91.09 - Other allergy status, other than to drugs and biological substances (8) Spondylosis of thoracic spine: Code(s): M47.814 - Spondylosis without myelopathy or radiculopathy, thoracic region Plan Patient is a 53-year-old female came in today for six-month follow-up appointment Patient is complaining of feeling diet and having lack of energy Mood tubbs she is stable She is questioning if we could increase Wellbutrin to b.i.d. She says that she get to me, if she want to increase Wellbutrin We will continue duloxetine 20 mg daily She is seen caseworker intake all her blood pressure medications and lipid medication is through Cardiology.? she is currently seeing Dr. James , [facility] Cardiology patient had cardiac catheterization done May of 2022 which showed normal coronary arteries She is taking cetirizine and Flonase for allergies , she is getting cetirizine [id number]-vvk-uzhweri Hypothyroidism:? Patient is on levothyroxine 100 mcg through endocrinology Osteoporosis management through endocrinology Wellbutrin, duloxetine and allergy management is through PCP office Labs are done through Cardiology and endocrinology office Medications: Refilled bupropion HCl XL 150 mg PO QAM 90 tabs 1RF duloxetine 20 mg PO BEDTIME 90 caps 1RF Coding Level of Care Code Est Pt Level 4 (95123) Diagnoses Recurrent major depressive disorder, in full remission F33.42 Active/Remission status: in full remission Cardiomyopathy, unspecified type I42.9 Cardiomyopathy type: unspecified Other specified hypothyroidism E03.8 Hypertension, essential I10 Age related osteoporosis, unspecified pathological fracture presence M81.0 Osteoporosis type: age-related Presence of current pathological fracture: unspecified Allergic rhinitis due to other allergic trigger, unspecified seasonality J30.89 Allergic rhinitis trigger: other Allergic rhinitis seasonality: unspecified Environmental allergies Z91.09 Spondylosis of thoracic spine M47.814 Additional Codes TJ-7 Assessment Billing - TJ-7 Assessment Tool: TJ-7 Assessment 42993 ([id number])
[2024-01-19 15:14] VITALS: BP 110/66; PULSE 80; O2SAT 96; BMI 25.2
== END 2024-01-19 15:56 | disposition home or self-care (01) ==
PROVIDERS: PCP Internal Medicine; Visit Provider Internal Medicine
DX: I42.9 Cardiomyopathy, unspecified (principal); F33.42 Major depressive disorder, recurrent, in full remission; E03.8 Other specified hypothyroidism; I10 Essential (primary) hypertension; M81.0 Age-related osteoporosis without current pathological fracture; J30.89 Other allergic rhinitis; Z91.09 Other allergy status, other than to drugs and biological substances; M47.814 Spondylosis without myelopathy or radiculopathy, thoracic region
CPT/HCPCS: 99214

== ENCOUNTER 2024-06-28 10:30 | Outpatient (AMB) | payer OTHER, SELFPAY ==
[2024-06-28 10:31] VITALS: BP 102/62; PULSE 84; O2SAT 96; BMI 26.0
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
--- OUTSIDE RECORDS SUMMARY | 2024-06-28 10:36 | XMS_ITS ---
Author Organization [facility] Address [address] [address] Care Team Providers Care Director Geothermal Operations Name Role Phone Patricio Painter Primary Care Provider CHERRY Faust Unavailable [phone] Allergies Allergen (clinical drug ingredient) Drug/Non Drug Allergy documented on EMR Reaction Allergy Type Onset Date Status Substance with penicillin structure and antibacterial mechanism of action (substance) Penicillins hives Drug Allergy Active Substance with sulfonamide structure and antibacterial mechanism of action (substance) Sulfa Antibiotics Unknown Drug Allergy Active REASON FOR VISIT 4 week follow up right shockwave therapy. Medications Medication SIG (Take, Route, Frequency, Duration) Notes Start Date End Date Status Atorvastatin Calcium 10 MG 1 tablet Orally Once a day Active Levothyroxine Sodium 125 MCG 1 tablet in the morning on an empty stomach Orally Once a day Active buPROPion HCl 100 MG 1 tablet Orally Twice a day 150mg Active Metoprolol Succinate ER 25 MG 1 tablet Orally Once a day 12.5mg once daily Active Entresto 24-26 MG 1 tablet Orally Twice a day Active Multivitamin - 1 tablet Orally Once a day Active Mela Allergy Acti ve DULoxetine HCl 20 MG 1 capsule Orally Twice a day Active Farxiga 10 MG 1 tablet Orally Once a day Active Spironolactone 25 MG 1 tablet Orally Active Vital Signs Weight 142 lbs 03/15/2024 Height 63.5 in 03/15/2024 BMI 24.76 kg/m2 03/15/2024 Procedures Procedure Date Ordered Date Performed Result Body Sit e INJ TENDON SHEATH/LIGAMENT/FASCIA 03/15/2024 N/ A Encounters Encounter Location Date Provider Diagnosis [facility] [address] [address] 03/15/2024 CHERRY KYA Plantar fascial fibromatosis M72.2 and Right foot pain M79.671 Assessments Encounter Date Diagnosis (ICD Code) Assessment Notes Treatment Notes Treatment Clinical Notes Section Notes 03/15/2024 Plantar fascial fibromatosis (ICD-10 - M72.2) Patient examined and evaluated. She continues to struggle with a large painful plantar fibroma to the right foot. Shockwave has not seemed to help this foot as much as the left. I Discussed the option of an injection vs surgery at this time. She wished to try the injection. This was done in the office today. She tolerated this well. I advised that if this does not help the next step is surgical excision of the right fibroma. This would entail a 4 week recovery of minimal pressure to the foot. She expressed understanding and will let me know. 03/15/2024 Right foot pain (ICD-10 - M79.671) Plan Of Treatment Treatment Notes Assessment Notes Plantar fascial fibromatosis Patient exa mined and evaluated. She continues to struggle with a large painful plantar fibroma to the right foot. Shockwave has not seemed to help this foot as much as the left. I Discussed the option of an injection vs surgery at this time. She wished to try the injection. This was done in the office today. She tolerated this well. I advised that if this does not help the next step is surgical excision of the right fibroma. This would entail a 4 week recovery of minimal pressure to the foot. She expressed understanding and will let me know. Pending Test Test Name Order Date INJ TENDON SHEATH/LIGAMENT/FASCIA 2023 Medications Administered Medication Instructions Date of Administration Dosage Notes Kenalog 03/15/2024 10 mg Progress Notes * Domitila MARSHDOB:[birth year] (53 yo F)Acc No.[id number]:03/15/2024 Progress Note Patient:?Feng MARSH Provider:?Cherry Chandler DPM :1970???Age:53 Y???Sex:Female D ate:03/15/2024 Address:[facility] [id number] Pcp:Patricio Painter Subjective: * Chief Complaints: * ???4 week follow up right sh ockwave therapy. * HPI: ???Constitutional:? Ms. Marsh presents for follow up after shockwave therapy for her right plantar fibromas. She states that she is still having discomfort despite the treatment. The fibroma around the heel region is still large and feels bruised. She has not noticed any actual bruising or redness. She has used tylenol with good relief. She admits the left foot fibromas continue to feel fine since the treatment. * ROS:?General/Constitutional:?Denies?Chills.?Denies?Fatigue.?Denies?Fever.?Denies?Headache.?Respiratory:?Denies?Cough.?Denies?Shortness of breath,?denies.?Denies?Wheezing.?Musculoskeletal:?Patient complaining of?Painful fibroma right foot.?Neurologic:?Denies?Paralysis.?Denies?Tingling/Numbness.?Denies?Tremor.? * Medical History:? * Surgical History:?[place] iban th extraction colonoscopy diagnostic cardiac catherization 05/2020 * Hospitalization/Major Diagno stic Procedure:?Denies Past Hospitalization * Family History:?Father: unkn own, COPD, Hypertension.?Mother: unknown, Hypertension, Hypothyroidism, Osteoporosis.? * Social History:?Active tobacco user: Vapes ( 11 year history). 1-2 alcoholic beverages a week. Denies illicit drug use. * Medications:?TakingFarxiga 1 0 MG Tablet 1 tablet Orally Once a day Spironolactone 25 MG Tablet 1 tablet Orally Mela Allergy Multivitamin - Tablet 1 tablet Orally Once a day DULoxetine HCl 20 MG Capsule Delayed Release Particles 1 capsule Orally Twice a day buPROPion HCl 100 MG Tablet 1 tablet Orally Twice a day , Notes to Pharmacist: 150mgLevothyroxine Sodium 125 MCG Tablet 1 tablet in the morning on an empty stomach Orally Once a day Atorvastatin Calcium 10 MG Tablet 1 tablet Orally Once a day Entresto 24-26 MG Tablet 1 tablet Orally Twice a day Metoprolol Succinate ER 25 MG Tablet Extended Release 24 Hour 1 tablet Orally Once a day , Notes to Pharmacist: 12.5mg once dailyMedication List reviewed and reconciled with the patientTaking Farxiga 10 MG Tablet 1 tablet Orally Once a day Taking Spironolactone 25 MG Tablet 1 tablet Orally Taking Mela Allergy Taking Multivitamin - Tablet 1 tablet Orally Once a day Taking DULoxetine HCl 20 MG Capsule Delayed Release Particles 1 capsule Orally Twice a day Taking buPROPion HCl 100 MG Tablet 1 tablet Orally Twice a day , Notes to Pharmacist: 150mgTaking Levothyroxine Sodium 125 MCG Tablet 1 tablet in the morning on an empty stomach Orally Once a day Taking Atorvastatin Calcium 10 MG Tablet 1 tablet Orally Once a day Taking Entresto 24-26 MG Tablet 1 tablet Orally Twice a day Taking Metoprolol Succinate ER 25 MG Tablet Extended Release 24 Hour 1 tablet Orally Once a day , Notes to Pharmacist: 12.5mg once dailyMedication List reviewed and reconciled with the patient * Allergies:?Penicillins: hive sSulfa Antibioticsno[Allergies Verified] Objective: * Vitals:?Wt:142lbs, Ht: 63.5 in, BMI:24.76Index, Ht-cm: 161.29, Wt-k.41 kg. * Examination: ???General Examination: ???This is a pleasant middle aged female. Alert and oriented today and in no acute distress. Patient comes in ambulating in sneakers without using any assistive devices. Breathing is regular and unlabored while sitting. Affect is pleasant and cooperative. No unusual anxiety or depression noted. Hearing intact to spoken word. No evidence of visual impairment that would impact self care or ambulation. Patient palpable dorsalis pedis and posterior tibial pulse bilaterally. No varicosities visualized. Capillary refill is less than 3 seconds to all digits bilaterally. Light touch sensation is symmetrical to all lower extremity dermatomes. Achilles reflex is 2/4 bilaterally. Babinski is downgoing. Skin has normal turgor and texture. There are no open wounds, rashes, or lesions noted. There is a plantar fibroma present to the medial left plantar fascia band more centrally located. This is large, but much softer with pressure than it was before the shockwave. There is no pain with pressure today. There is a small pea size plantar fibroma to the right medial plantar fascia band just inferior to the plantar 1st MPJ that is nontender. There is also a painful large fibroma in the plantar fascia band just superior to the medial plantar calcaneal tuberosity on the right. This is very tender to touch. No discoloration or edema present. Subtalar and ankle joint range of motion are unrestricted. 5/5 strength for anterior, posterior, and lateral lower extremity muscle groups on the left and right. Gastrocsoleus equinus with 5 degrees of dorsiflexion with knee extended and flexed. No muscle atrophy noted. Assessment: * Assessment: 1.?Plantar fascial fibromato sis - M72.2 (Primary)?2.?Right foot pain - M79.671? Plan: * Treatment: * Procedures:?STEROID INJECTION: All risks and benefits of steroid injections were discussed in detail with the patient. Risks included infection, increased pain, steroid flare, thinning of soft tissue, ligaments, tendons, allergic reaction, and/or discoloration of skin at site of injection. Benefits included decrease of pain and inflammation. Patient expressed understanding and consent was signed. Patient advised to rest today after the injection. The patient should ice the area daily 20 minutes on and 20 minutes off for twice daily for the next three days. The patient can return to high impact activities next week. Patient was educated that it may take up to a week for the steroid to take full effect. The right foot was prepped and draped appropriately. The area was cleansed with an chlorahexadine solution. Ethyl chloride spray was then utilized to topically anesthetize the skin. 2cc steroid injection consisting of 1cc of 0.5% Marcaine Plain and 1cc Kenalog 10 was injected into the right plantar fibroma just anterior to the heel. Pt tolerated the procedure well. Hemostasis was controlled with pressure and bandage applied. ? * Therapeutic Injections:? Kenalog : 10 mg given by CHERRY BOLAND D.P.M. (Plantar fascial fibromatosis, Right foot pain) * Procedure Codes:?81923 INJ T ENDON SHEATH/LIGAMENT/FASCIA, Modifiers: RT J3301 INJ TRIAMCINOLONE ACETONIDE 10 MG * Billing Information: * Visit Code:? * Procedure Codes:? INJ TENDON SHEATH/LIGAMENT/FASCIA. Modifiers: RT J3301 INJ TRIAMCINOLONE ACETONIDE 10 MG. * Sign off status: Completed true * Provider:Renay Chandler DPM Date:?03/15 Generated for Vinay dallas/Joselin/eTransmitting on:?06/28/2024 10:36 AM EST History and Physical Notes * Examination Category Sub-Category Detail Notes Category Not es General Examination This is a pleasant middle aged female. Alert and oriented today and in no acute distress. Patient comes in ambulating in sneakers without using any assistive devices. Breathing is regular and unlabored while sitting. Affect is pleasant and cooperative. No unusual anxiety or depression noted. Hearing intact to spoken word. No evidence of visual impairment that would impact self care or ambulation. Patient palpable dorsalis pedis and posterior tibial pulse bilaterally. No varicosities visualized. Capillary refill is less than 3 seconds to all digits bilaterally. Light touch sensation is symmetrical to all lower extremity dermatomes. Achilles reflex is 2/4 bilaterally. Babinski is downgoing. Skin has normal turgor and texture. There are no open wounds, rashes, or lesions noted. There is a plantar fibroma present to the medial left plantar fascia band more centrally located. This is large, but much softer with pressure than it was before the shockwave. There is no pain with pressure today. There is a small pea size plantar fibroma to the right medial plantar fascia band just inferior to the plantar 1st MPJ that is nontender. There is also a painful large fibroma in the plantar fascia band just superior to the medial plantar calcaneal tuberosity on the right. This is very tender to touch. No discoloration or edema present. Subtalar and ankle joint range of motion are unrestricted. 5/5 strength for anterior, posterior, and lateral lower extremity muscle groups on the left and right. Gastrocsoleus equinus with 5 degrees of dorsiflexion with knee extended and flexed. No muscle atrophy noted.
--- OUTSIDE RECORDS SUMMARY | 2024-06-28 10:37 | XMS_ITS ---
Author Organization [facility] Address [address] [address] Care Team Providers Care Shoe Stock Associate Name Role Phone InocencioPatricio Primary Care Provider DIONICIO Faust Unavailable [phone] REASON FOR VISIT Insurance Referral Encounters Encounter Location Date Provider Diagnosis [facility] [address] [address] 03/10/2024 DIONICIO BOLAND Plan Of Treatment No Information Progress Notes * Domitila MARSHDOB:[birth year] (53 yo F)Acc No.[id number]:03/10/2024 Patient:?Feng MARSH :1970???Age:53 Y???Sex:Female Address:[place] [address] * true * Date:? Generated for Vinay dallas/Joselin/eTransmitting on:?06/28/2024 10:36 AM EST
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
--- OUTSIDE RECORDS SUMMARY | 2024-06-28 10:37 | XMS_ITS ---
Author Organization [facility] Address [address] [address] Care Team Providers Care Manager Intermediate Name Role Phone InocencioPatricio Primary Care Provider CHERRY Faust Unavailable [phone] REASON FOR VISIT Shockwave session Medications Medication SIG (Take, Route, Frequency, Duration) Notes Start Date End Date Status Metoprolol Succinate ER 25 MG 1 tablet Orally Once a day 12.5mg once daily Active Entresto 24-26 MG 1 tablet Orally Twice a day Active Atorvastatin Calcium 10 MG 1 tablet Orally Once a day Active Levothyroxine Sodium 125 MCG 1 tablet in the morning on an empty stomach Orally Once a day Active buPROPion HCl 100 MG 1 tablet Orally Twice a day 150mg Active Spironolactone 25 MG 1 tablet Orally Active Farxiga 10 MG 1 tablet Orally Once a day Active DULoxetine HCl 20 MG 1 capsule Orally Twice a day Active Multivitamin - 1 tablet Orally Once a day Active Mela Allergy Acti ve Encounters Encounter Location Date Provider Diagnosis [facility] [address] [address] 02/11/2024 CHERRY BOLAND Plantar fascial fibromatosis M72.2 and Right foot pain M79.671 Assessments Encounter Date Diagnosis (ICD Code) Assessment Notes Treatment Notes Treatment Clinical Notes Section Notes 02/11/2024 Plantar fascial fibromatosis (ICD-10 - M72.2) 02/11/2024 Right foot pain (ICD-10 - M79.671) Plan Of Treatment Next Appt Details Follow Up: 4 Weeks, Reason: Progress Notes * Julia MARSH:[birth year] (53 yo F)Acc No.[id number]:02/11/2024 Patient:?Feng MARSH Provider:?Cherry Chandler DPM :1970???Age:53 Y???Sex:Female D ate:02/11/2024 Address:[address] [place], [place] [id number] Pcp:Patricio Painter Subjective: * Chief Complaints: * ???Shockwave session * Medical History:? * Surgical History:? * Hospitalization/Major Diagno stic Procedure:? * Medications:?TakingFarxiga 1 0 MG Tablet 1 [...] day , Notes to Pharmacist: 12.5mg once dailyTaking Farxiga 10 MG Tablet 1 tablet Orally [...] day , Notes to Pharmacist: 12.5mg once daily Objective: Assessment: * Assessment: 1.?Plantar fascial fibromato sis - M72.2 (Primary)?2.?Right foot pain - M79.671? Plan: * Treatment: * Procedures:?Extracorporeal Shock Wave Therapy was discussed in detail with the patient today. Reviewed risks of nerve pain, tendon rupture, local bruising, local bleeding, and continued pain as associated risks with the procedure. Advised that there may be pain during and immediately after the procedure. There also may be increased redness at the site of treatment that may last for a few days. Patient was understanding and consent obtained. Patient was brought to the procedure suite and placed onto the procedure table in a supine position. Ultrasound gel was applied to the right plantar fibroma. The AutoWave device was set to the appropriate setting. 500 introductory shocks were given with good tolerance. Therapy was continued to 2000 shocks. Patient tolerated the procedure well. Patient was encouraged to continue stretching and icing twice daily. ? * Procedure Codes:?0101T EXTRA ADARSH SHOCKWV [place],HI ENRG * Follow Up:?4 Weeks * Billing Information: * Visit Code:? * Procedure Codes:? 0101T EXTRACORP SHOCKWV [place],HI ENRG. * Sign off status: Completed true * Provider:?Cherry Chandler DPM Date:?02/10 Generated for Vinay dallas/Joselin/Melissa on:?06/28/2024 10:36 AM EST
--- OUTSIDE RECORDS SUMMARY | 2024-06-28 10:37 | XMS_ITS | Continuity of Care Document ---
Author Organization [facility] Address [address] [place] [address] Phone [phone] Care Team Providers Care Glazier [employer] Name Role Phone Patricio Painter Care Team Information Hospitality Job Titles [phone] Problems Active Problems Provider Date Graves' disease Radha Rush M.D. Ons et: 04/10/2023 Hypothyroidism Radha Rush M.D. Ons et: 04/10/2023 Anxiety Radha Rush M.D. Ons et: 04/10/2023 Depressive disorder Radha Rush M.D. Onset: 04/10/2023 Hypercholesterolemia Sierra Martin Onset: 04/10/2023 Osteoporosis Radha Rush M.D. Ons et: 04/10/2023 Left bundle branch block Radha Rush M.D. Onset: 04/10/2023 Nonischemic congestive cardiomyopathy Radha Gavin M.D. Onset: 04/10/2023 Sleep apnea Radha Rush M.D. Ons et: 04/10/2023 Fracture of thoracic spine Radha valdez M.D. Onset: 04/10/2023 Multiple nodules of lung Radha Rush M.D. 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 ETOH Use Occasionally consumes alcoho l Tobacco Use Start: Unknown Patient is a cur rent smoker, smokes every day Smoking Status Reviewed: 04/10/23 Patient is a current smoker, smokes every day Allergies and adverse reactions Active Allergies Criticality Reaction Severity Comments Date Penicillin Unable to assess criticality 04/10/2023 Sulfamethoxazole Unable to assess criticality 04/10/2023 Medications Active Medications SIG Qnty Indications Order ing Provider Date Metoprolol Succinate ER25mg Tablets ER 24HR Take 1 Tablet By Mouth Every Day Unknown Jtykdli91sg Tablets Take 1 Tablet By Mouth Every Day Unknown Atorvastatin Xhvsalw68pe Tablets Take 1 Tablet By Mouth Every Day AT Bedtime Inocencio, [facility] Vriqajap55-89az Tablets Take 1/2 Tablet By Mouth Twice A Day Unknown Levothyroxine Nbuynh246eoo Tablets take 1 tablet by mouth Thursday through , 07/10 tablets on Thursday 90tabs Radha Rush M.D. Sxsjloojtguljc05ll Tablets Take 1 Tablet By Mouth Every Day Unknown Bupropion Hydrochloride ER (XL)150mg Tablets ER 24HR Take 1 Tablet By Mouth Every Morning Inocencio, [facility] Fluticasone Ibialfowog73nfl/Act Suspension Instill 1 [place] Nasally Once Daily Inocencio, Duloxetine KCV09sn Caps DR Part Take 1 Capsule By Mouth Everyday AT Bedtime Inocencio, Levalbuterol Swmyuddi94eir/Act Aerosol 2 puff inhaled every 6 hours as needed for shortness of breath or wheezing Unknown Multivitamin WomenTablets 1 by mouth every day Radha Rush M.D. Zyrtec Tysdfzp11ln Tablets 1 by mouth every day prn Radha Rush M.D. Vital Signs Date Vital Result Comment 04/20/2024 3:32pm BP Systolic 118 mmHg BP Diastolic 80 mmHg Heart Rate 90 /min Height 63 inches 5'3 Weight 145.12 lb BMI (Body Mass Index) 25.7 kg/m2 Results Test Acquired Date Facility Test Result H/L Range N ote Laboratory test finding 06/13/2024 [facility] TSH Rfx on Abnormal to Free T4 3.930 uIU/mL 0.450-4.50 0 Laboratory test finding 04/20/2024 [facility] TSH RFX On Abnormal To Free T4 <pending> Laboratory test finding 01/21/2024 [facility] TSH Rfx on Abnormal to Free T4 0.846 uIU/mL 0.450-4.50 0 Laboratory test finding 10/21/2023 [facility] TSH RFX On Abnormal To Free T4 <pending> TSH+Free T4 10/20/2023 [facility] TSH 5.460 uIU/mL High 0.450-4.50 0 T4,Free(Direct ) 1.58 ng/dL 0.82-1.77 Laboratory test finding 10/20/2023 [facility] Vitamin D, 25-Hydroxy 55.1 ng/mL 30.0-100.0 1 1 Vitamin D deficiency has been defined by the [place] [employer] and an Endocrine Society practice guideline as a level of serum 25-OH vitamin D less than 20 ng/mL (1,2). The Endocrine Society went on to further define vitamin D insufficiency as a level between 21 and 29 ng/mL (2). 1. IOM ([place] [employer]). 2010. Dietary reference intakes for calcium and D. [place]: The National Academies Press. 2. [place] MF, Tamar [place], Goldie MAGALLANES, et al. Evaluation, treatment, and prevention of vitamin D deficiency: an Endocrine Society clinical practice guideline. JCEM. 2010; 96(7):1911-30. Medical Devices Description No Information Available Encounters Type Date Location Provider Dx Diagnosis Office Visit 04/20/2024 3:15p Main Office Radha Rush M.D. 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 04/20/2024 M81.0 Postmenopausal o steoporosis without current pathological fracture Radha Rush M.D. 04/20/2024 E05.00 Graves' disease Radha Elise M.D. Plan of Treatment Future Appointment(s):* 10/19/2024 3:15 pm - Radha Rush M.D. at Main Office 04/20/2024 - Radha Rush M.D.* E03.9 Hypothyroidism, unspecified * M81.0 Postmenopausal osteoporosis without current pathological fracture * E05.00 Graves' disease* New Labs:* TSH RFX On Abnormal To Free T4, Ordered: 04/20/24 Functional Status Description No Information Available Mental Status Description No Information Available Referrals Refer to Dr Reason for Referral Status Appt Alon Radha Cosby M.D. Created [address] [place] [address] Drive [address] [place] [id number] [phone] Radha Rush M.D. Created [address] [place] [address] Drive [address] [place] [address] [phone]
== END 2024-06-28 11:02 | disposition home or self-care (01) ==
PROVIDERS: PCP Internal Medicine; Visit Provider Hospitalist
DX: F17.290 Nicotine dependence, other tobacco product, uncomplicated (principal); R91.1 Solitary pulmonary nodule
CPT/HCPCS: 99214

== ENCOUNTER → 2024-06-28 10:30 | Outpatient (BNVA) | payer OTHER, SELFPAY | PROVIDERS: PCP Internal Medicine; Visit Provider Hospitalist | DX: R91.1 Solitary pulmonary nodule (principal); I11.0 Hypertensive heart disease with heart failure; I50.33 Acute on chronic diastolic (congestive) heart failure; S22.000A Wedge compression fracture of unspecified thoracic vertebra, initial encounter for closed fracture; X58.XXXA Exposure to other specified factors, initial encounter; Y93.9 Activity, unspecified; Y92.9 Unspecified place or not applicable; Y99.9 Unspecified external cause status; F17.210 Nicotine dependence, cigarettes, uncomplicated; U07.0 Vaping-related disorder; Z23 Encounter for immunization; Z86.16 Personal history of COVID-19 | CPT/HCPCS: 90471; 90656 ==

== ENCOUNTER 2024-07-27 14:18 | Outpatient (AMB) | payer OTHER, SELFPAY ==
[2024-07-27 14:25] VITALS: BP 90/60; PULSE 84; RESP 16; TEMP 36.7; O2SAT 98; BMI 25.9
--- NOTE | 2024-07-27 14:25 | A.OFFPC_ITS ---
Vital Signs 07/27/24 14:25 Height 5 ft 3 in Weight 146 lb BMI 25.9 BP 90/60 Blood Pressure Location Rt brachial Position Sitting Respiration 16 Pulse 84 Pulse Source Pulse Oximeter Temp 98.0 F Temp Source Oral Pulse Oximetry (%) 98 Intake Visit Reasons: Annual PE Allergies penicillin V Allergy (Mild, Verified 07/27/24 14:27) hives Sulfa (Sulfonamide Antibiotics) Allergy (Mild, Verified 07/27/24 14:27) hives Medication List - Last Reconciled 07/27/24 by Patricio Painter MD atorvastatin 10 mg PO BEDTIME bupropion HCl XL 150 mg PO QAM dapagliflozin propanediol (Farxiga) 10 mg PO DAILY duloxetine 20 mg PO BEDTIME fluticasone propionate 50 mcg/actuation 1 spray intranasal DAILY levalbuterol tartrate 45 mcg/actuation (Xopenex HFA) 2 puffs inhalation Q6H PRN 30 days levothyroxine 100 mcg PO QAM metoprolol succinate ER 25 mg PO BEDTIME nicotine 1 patch transdermal DAILY 28 days sacubitril-valsartan 24-26 mg (Entresto) 1 tab PO .qd spironolactone 25 mg PO BEDTIME Tobacco use date assessed: 07/27/24 Dental Screening Dental Screen Date: 07/27/24 Did you have a dental visit in the last 12 months?: Yes Did you have a dental problem in the last 6 months where you did not have access to dental care?: No Was dental information given to patient?: Patient has dentist HPI Annual PE HPI Details Patient is a 54-year-old female came in today for physical exam appointment Mood tubbs she is stable patient is on Wellbutrin and duloxetine through PCP office Nasal congestion stable Flonase nasal spray also from PCP office 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 she is currently seeing Dr. James , [facility] Cardiology patient had cardiac catheterization done May of 2022 which showed normal coronary arteries Patient has cardiomyopathy Hypothyroidism:? Patient is on levothyroxine 100 mcg through endocrinology Osteoporosis management through endocrinology Labs are done through Cardiology and endocrinology office - Continued use of nicotine through vapi ng is noted, with support through nicotine patches. - Past pulmonary nodule continues to be monitored by pulmonology. Dr. White - Annual screenings including mammograms and colonoscopy are maintained as per health schedules. Health Maintenance - Mammogram due in August; last performed around August 2019. - Colonoscopy performed in 2022; next sc heduled in 2029. - Immunizations up-to-date with influenz a vaccine (May), tetanus (2019), pneumonia (2020), and awaiting second dose of shingles vaccine. - Encouraged patient to get a follow-up shingles vaccine and most recent pneumonia vaccine from the pharmacy. [facility] of Care - Directory Assistance Operator: Dr. James - Gift Consultant: Dr. Nico Miranda - Test Boring Crew Chief: Dr. White - OBGYN: Dr. Perez at [facility] OBGY N - Senior Infrastructure Engineer (name not specified) Medications - Levothyroxine 100 mcg for hypothyroidi sm - Metoprolol for cardiovascular manageme nt - Valsartan/Sacubitril (Entresto) for ca rdiomyopathy - Spironolactone for cardiovascular chiki gement - Zopinex (indication not specified) - Duloxetine from this office - Bupropion 150 mg from this office - Parixika (indication not specified) - Nasal spray from this office Patient Instructions - Obtain second dose of shingles vaccine and verify pneumonia vaccine status at pharmacy. - Continue current medications and manag e pain with wnss-sqi-ttnwaty analgesics. - Follow-up with specialists as schedule d and complete annual screenings. - Consider reducing nicotine use with beatty pport from patches. Review of Systems - General: Denies changes in weight. - Cardiovascular: Denies chest pain. - Musculoskeletal: Reports chronic back pain. - Respiratory: Denies new respiratory sy mptoms. - Neurological: No headaches no dizzin ess - Ear nose throat: No sore throat no hearing difficulty no ear pain - Gastrointestinal: No nausea vomiting or diarrhea - Endocrine: No polyuria polydipsia no heat intolerance - Genitourinary: No dysuria - Skin: No new complaints Physical Exam General: Cooperative, healthy appearing, comfortable, no acute distress Orientation: Patient oriented x3 Limitations: None Head: Normal to inspection Ears: Within normal limit visually Nose: Normal external nose present Face and sinus: Normal facial exam Eyes: Appearance normal, extraocular movement intact pupils reactive Neck: Normal visual inspection and supple Respiratory: Normal respiratory effort and able to speak in complete sentences. Clear to auscultation, no stridor Cardiovascular: S1 and S2 GI: Normal to inspection. Soft to palpation and nontender Skin: Turgor normal, no acute findings Neuro: Patient oriented x3, motor sensory intact, balance not intact, tandem walk not passed Extremities: Normal to inspection [facility] Medical History Compression fracture of body of thoracic vertebra Vaping nicotine dependence, tobacco product Pulmonary nodule Anxiety Non-ischemic cardiomyopathy Sleep apnea Back pain Pulmonary nodules Depression History of fractured vertebra History of COVID-19 Pneumothorax, closed, traumatic Hypothyroid Left bundle branch block Hyperlipidemia Surgical History Hx of colonoscopy Hx of cardiac catheterization Family History Father Hypertension COPD (chronic obstructive pulmonary disease) Mother Hypertension Hypothyroid Social History Housing: House Patient Tobacco Use Status: Former Tobacco user Tobacco use type: Cigarette Years Smoked: 5 Years e-Cigarette/Vaping Use: Currently Using service: No Current occupational status: employed Cognitive needs: No Hearing needs: No Vision needs: Yes Questionnaire PHQ-9 Over the last 2 weeks, how often have you been bothered by any of the following problems? 1. Little interest or pleasure in doing things: several days 2. Feeling down, depressed, or hopeless: several days 3. Trouble falling or staying asleep, or sleeping too much: not at all 4. Feeling tired or having little energy: nearly every day 5. Poor appetite or overeating: not at all 6. Feeling bad about yourself - or that you are a failure or have let yourself or your family down: not at all 7. Trouble concentrating on things, such as reading the newspaper or watching television: several days 8. Moving or speaking so slowly that other people could have noticed. Or the opposite - being so fidgety or restless that you have been moving around a lot more than usual: not at all 9. Thoughts that you would be better off or of hurting yourself in some way: not at all Total score: 6 Depression Screening Interpretation: Negative Depression Screening Done: Yes 09567 - PHQ-9 Billing: Yes Source: Developed by Drs. Navi Purcell, Georgina Michelle, Jeremiah Marsh and colleagues, with an educational kae from [employer]. Thrive Questionnaire Date Thrive assessed: 07/27/24 I am a: Patient What is your living situation today?: I have a steady place to live Within the past 12 months, did the food you bought not last and you didn't have the money to get more?: I choose not to answer this question Within the past 12 months, did you worry whether your food would run out before you got money to buy more?: Never true Do you have trouble paying for medicines?: No Do you have trouble getting transportation to medical appointments?: No Do you have trouble paying your heating and electricity bill?: No Do you have trouble taking care of your child, family member or friend?: No Do you have trouble with day-to-day activities such as bathing, preparing meals, shopping, managing finances, etc.?: No Are you currently unemployed and looking for a job?: No Are you interested in more education?: I choose not to answer this question Please select the resources that you would like help with: None Currently or been in a relationship where the following occur: No concerns reported THRIVE Score: 0 AUDIT C Alcohol Use Questionnaire (AUDIT-C) 1. How often do you have a drink containing alcohol?: 2-3 times a week 2. How many drinks containing alcohol do you have on a typical day when you are drinking?: 1 or 2 3. How often do you have six or more drinks on one occasion?: Never Total Score: 3 Score Reviewed/Action Taken: Yes TJ-7 AMB Questionnaire TJ-7 Date TJ - 7 assessed: 07/27/24 Feeling nervous, anxious, or on edge: 1 = Several days Not being able to stop or control worryin = Several days Worrying too much about different things: 1 = Several days Trouble relaxin = Not at all Being so restless that it is hard to sit still: 0 = Not at all Becoming easily annoyed or irritable: 1 = Several days Feeling afraid as if something awful might happen: 0 = Not at all Total TJ-7 score (0-4 normal; 5-9 mild; 10-14 moderate; 15-21 severe): 4 Source: Developed by Drs. Navi Purcell, Georgina Michelle, Jeremiah Marsh and colleagues, with an educational kae from [employer]. TJ-7 Assessment Billing TJ-7 Assessment Tool: TJ-7 Assessment 91848 Physical exam (Primary Care) Vital Signs: Last Vital Signs Temp 98.0 F 07/27/24 14:25 Pulse 84 07/27/24 14:25 Resp 16 07/27/24 14:25 BP 90/60 07/27/24 14:25 Pulse Ox 98 07/27/24 14:25 BMI result Body Mass Index 25.9 Tobacco/Smoking Status: Tobacco use Status Tobacco use date assessed 07/27/24 07/27/24 14:33 Patient Tobacco Use Status Former Tobacco user 07/27/24 14:33 Tobacco use type Cigarette 07/27/24 14:33 e-Cigarette/Vaping Use Currently Using 07/27/24 14:33 PHQ-9: PHQ-9 Score PHQ-9: Total score 6 07/27/24 14:36 Depression Screening Interpretation: Negative Thrive Assessment: Date of Thrive Assessment Date Thrive assessed 07/27/24 07/27/24 14:33 Currently or been in a relationship where the following occur: No concerns reported Coding Level of Care Code Est Pt Level 4 (76148) Est Pt Prev Care 40-64y(48186) Diagnoses Encounter for general adult medical examination with abnormal findings Z00.01 Recurrent major depressive disorder, in full remission F33.42 Active/Remission status: in full remission Environmental allergies Z91.09 Other specified hypothyroidism E03.8 Hypertension, essential I10 Cardiomyopathy, unspecified type I42.9 Cardiomyopathy type: unspecified Age related osteoporosis, unspecified pathological fracture presence M81.0 Osteoporosis type: age-related Presence of current pathological fracture: unspecified Vaping nicotine dependence, tobacco product F17.290 Additional Codes PHQ-9 - 40721 - PHQ-9 Billing: Yes ([id number]) TJ-7 Assessment Billing - TJ-7 Assessment Tool: TJ-7 Assessment 61999 ([id number]) Assessment & Plan Assessment & Plan (1) Encounter for general adult medical examination with abnormal findings: Code(s): Z00.01 - Encounter for general adult medical examination with abnormal findings Category: Medical (2) Major depression, recurrent: Code(s): F33.9 - Major depressive disorder, recurrent, unspecified Category: Medical Qualifiers: Active/Remission status: in full remission Qualified Code(s): F33.42 - Major depressive disorder, recurrent, in full remission (3) Environmental allergies: Code(s): Z91.09 - Other allergy status, other than to drugs and biological substances Category: Medical (4) Other specified hypothyroidism: Code(s): E03.8 - Other specified hypothyroidism Category: Medical (5) Hypertension, essential: Code(s): I10 - Essential (primary) hypertension Category: Medical (6) Cardiomyopathy: Code(s): I42.9 - Cardiomyopathy, unspecified Category: Medical Qualifiers: Cardiomyopathy type: unspecified Qualified Code(s): I42.9 - Cardiomyopathy, unspecified (7) Osteoporosis: Code(s): M81.0 - Age-related osteoporosis without current pathological fracture Category: Medical Qualifiers: Osteoporosis type: age-related Presence of current pathological fracture: unspecified Qualified Code(s): M81.0 - Age-related osteoporosis witho ut current pathological fracture (8) Vaping nicotine dependence, tobacco product: Code(s): F17.290 - Nicotine dependence, other tobacco product, uncomplicated Category: Social Hx Plan Patient is a 54-year-old female came in today for physical exam appointment Mood tubbs she is stable patient is on Wellbutrin and duloxetine through PCP office Nasal congestion stable Flonase nasal spray also from PCP office 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 she is currently seeing Dr. James , [facility] Cardiology patient had cardiac catheterization done May of 2022 which showed normal coronary arter ies Patient has cardiomyopathy Hypothyroidism:? Patient is on levothyroxine 100 mcg through endocrinology Osteoporosis management through endocrinology Labs are done through Cardiology and endocrinology office - Continued use of nicotine through vaping is noted, with support through nicotine patches. - Past pulmonary nodule continues to be monitored by pulmonology. Dr. White - Annual screenings including mammograms and colonoscopy are maintained as per health schedules. Health Maintenance - Mammogram due in August; last performed around August 2019. - Colonoscopy performed in 2022; next scheduled in 2029. - Immunizations up-to-date with influenza vaccine (May), tetanus (2019), pneumonia (2020), and awaiting second dose of shingles vaccine. - Encouraged patient to get a follow-up shingles vaccine and most recent pneumonia vaccine from the pharmacy. [facility] - Directory Assistance Operator: Dr. James - Gift Consultant: Dr. Nico Miranda - Test Boring Crew Chief: Dr. White - OBGYN: Dr. Perez at [facility] OBGYN - Senior Infrastructure Engineer (name not specified) Medications - Levothyroxine 100 mcg for hypothyroidism - Metoprolol for cardiovascular management - Valsartan/Sacubitril (Entresto) for cardiomyopathy - Spironolactone for cardiovascular management - Zopinex (indication not specified) - Duloxetine from this office - Bupropion 150 mg from this office - Parixika (indication not specified) - Nasal spray from this office Patient Instructions - Obtain second dose of shingles vaccine and verify pneumonia vaccine status at pharmacy. - Continue current medications and manage pain with itrz-etr-byyokgs analgesics. - Follow-up with specialists as scheduled and complete annual screenings. - Consider reducing nicotine use with support from patches. Medications: Changed From levothyroxine 100 mcg PO QAM 90 tabs 1RF To levothyroxine 1 tablet 6 days a week on he 7day 1.5 tablet 100 mcg PO QAM
--- OUTSIDE RECORDS SUMMARY | 2024-07-27 16:32 | XMS_ITS | Encounter Summary ---
Author Organization [facility] Address [address] [place] [address] Care Team Providers Care Twisthand Name Role Phone Melany Jama DO Primary Care Pro vider Unavailable Melissa Melendez Primary Care Provider Unavailabl Kristian Edwards Primary Care Provider UnavailBetty Alva MD Primary Care Provide r Unavailable Ryan Osorio NP Primary Care Provider Unavailab Betty Beaver MD Primary Care Provide r Unavailable Leopoldo James MD Unavailable [phone] [facility], Pcp Primary Care Provider UnavailPatricio Fallon MD Primary Care Provider Unavailabl e [facility], Pcp Primary Care Provider UnavailBetty Alva MD Primary Care Provide r Unavailable Patricio Painter MD Primary Care Provider UnavailClaudette Geronimo Unavailable Unavailable Lindsay Carrillo NP Unavailable [phone] Encounter Details Date Type Department Care Team Description 01/08/2018 Manager Credit Collections Report Medical Records [address] [place] [address] Melissa Melendez Social History Tobacco Use Types Packs/Day Years Used Date Smoking Tobacco: Former Alcohol Use Standard Drinks/Week Comments Not Asked 0 (1 standard drink = 0.6 oz pur e alcohol) Alcohol Habits Answer Date Recorded How often do you have a drink containing alcohol ? Monthly or less 08/14/2020 How many drinks containing a lcohol do you have on a typical day when you are drinking? Not asked How often do you have six or more drinks on one occasion? Not asked Physical Activity Answer Date Recorded On average, how many days pe r week do you engage in moderate to strenuous exercise (like walking fast, running, jogging, dancing, swimming, biking, or other activities that cause a light or heavy sweat)? 0 days 07/18/2020 On average, how many minutes do you engage in exercise at this level? Not asked Sex Assigned at Date Recorded Not on file Job Start Date Occupation Industry Not on file Not on file Not on file documented as of this encounter Plan of Treatment Not on file documented as of this encounter Visit Diagnoses Not on filedocumented in this encounter Care Teams Twisthand Relationship Specialty Start Date End Date Melany Jama DO PCP - General Internal Medicine 11/08/14 07/11/18 Melissa Melendez PCP - General Family Practice 07/12/18 08/26/18 Kristian Miller PCP - General Family Practice 08/27/18 10/05/18 Betty Willard MD PCP - General Internal Medicine 10/06/18 Ryan Osorio NP PCP - General Internal Medicine 11/07/19 05/13/20 Betty Willard MD PCP - General Internal Medicine 05/14/20 [facility], [place] [id number] PCP - General Internal Medicine 07/30/20 10/21/21 Patricio Painter MD [address] [place] [address] [place] [id number] PCP - General Internal Medicine 10/22/21 11/07/21 [facility], [place] [id number] PCP - General Internal Medicine 11/08/21 11/18/21 Betty Willard MD PCP - General Internal Medicine 11/19/21 Patricio Painter MD [address] [place] [address] [place] [id number] PCP - General Internal Medicine 11/21/21 Leopoldo James MD [address] [place] [address] [place] [id number] [employer] Cardiovascular Disease 05/31/20 Claudette Valerio PA [address] [place] [address] [place] [id number] Cardiology 06/18/22 05/25/23 Lindsay Carrillo, [employer] [address] [place] [address] [address] Cardiology 05/26/23 documented as of this encounter
--- OUTSIDE RECORDS SUMMARY | 2024-07-27 16:32 | XMS_ITS ---
Author Organization [facility] Address [address] [address] Care Team Providers Care Venetian Blind Mechanic Name Role Phone InocencioPatricio Primary Care Provider DIONICIO Faust Unavailable [phone] REASON FOR VISIT Insurance Referral Encounters Encounter Location Date Provider Diagnosis [facility] [address] [address] 03/10/2024 DIONICIO BOLAND Plan Of Treatment No Information Progress Notes * Domitila MARSHDOB:[birth year] (53 yo F)Acc No.[id number]:03/10/2024 Patient:?Feng MARSH :1970???Age:53 Y???Sex:Female Address:[place] [address] * true * Date:? Generated for Vinay dallas/Joselin/eTransmitting on:?07/27/2024 04:32 PM EST
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
--- OUTSIDE RECORDS SUMMARY | 2024-07-27 16:32 | XMS_ITS | Encounter Summary ---
Author Organization [facility] Address [address] [place] [address] Care Team Providers Care Operation Supervisor Name Role Phone Leopoldo James MD Unavailable [phone] Community, Pcp Primary Care Provider Patricio Dumont MD Primary Care Provider Unavailabl e Community, Pcp Primary Care Provider UnavailBetty Alva MD Primary Care Provide r Unavailable Patricio Painter MD Primary Care Provider UnavailClaudette Geronimo Unavailable Unavailable Lindsay Carrillo NP Unavailable [phone] Reason for Visit * Reason Comments E-prescribe Rx Request Encounter Details Date Type Department Care Team Description 11/06/2020 Refill Cardio [facility] [address] [place] [address] Drive [address] [place] [id number] Leopoldo James MD [address] [place] [address] Dr Unm [facility] [address] [place], [place] [phone] E-prescribe Rx Request Social History Tobacco Use Types Packs/Day Years Used Date Smoking Tobacco: Every Day Vapor Started: 1988; Last attempted to quit: 1999 Smokeless Tobacco: Former Comments:vap Alcohol Use Standard Drinks/Week Comments Yes 1 (1 standard drink = 0.6 oz pur [...] on file documented as of this encounter Miscellaneous Notes * Telephone Encounter - Sally Olea R.N. - 11/06/2020 8:40 AM EDT Spironolactone refill sent electronically. documented in this encounter Plan of Treatment Not on file documented as of this encounter Visit Diagnoses Diagnosis Cardiomyopathy, unspecified type (HCC) documented in this encounter Care Teams Operation Supervisor Relationship Specialty Start Date End Date [facility], Pcp [address] [place] [address] PCP - General Internal Medicine 07/30/20 10/21/21 Patricio Painter MD [address] [place] [address] [place] [address] PCP - General Internal Medicine 10/22/21 11/07/21 [facility], [facility] [address] [place] [address] PCP - General Internal Medicine 11/08/21 11/18/21 Betty Willard MD [address] [place] [address] [place] [address] PCP - General Internal Medicine 11/19/21 11/20/21 Patricio Painter MD [address] [place] [address] [place] [address] PCP - General Internal Medicine 11/21/21 Leopoldo James MD [address] [place] [address] [place] [address] Movement Assembly Final Inspector Cardiovascular Disease 05/31/20 Claudette Valerio PA [address] [facility] [place] [address] Cardiology 06/18/22 05/25/23 Lindsay Carrillo NP [address] [place] [address] [place] [address] Cardiology 05/26/23 documented as of this encounter
--- OUTSIDE RECORDS SUMMARY | 2024-07-27 16:32 | XMS_ITS | Encounter Summary ---
Author Organization [facility] Address [address] [place] [address] Care Team Providers Care Economic Analyst Name Role Phone Leopoldo James MD Unavailable Community, Pcp Primary Care Provider Patricio Dumont MD Primary Care Provider Unavailconcepcion [place] Community, Pcp Primary Care Provider Betty Cochran MD Primary Care Provide r Unavailable Patricio Painter MD Primary Care Provider UnavailClaudette Geronimo Unavailable Unavailable Lindsay Carrillo NP Unavailable [phone] Encounter Details Date Type Department Care Team Description 08/29/2020 SC[facility] Medical Records [address] [place] [id number] Leopoldo James MD [address] [place] [address] [place] [address] Social History Tobacco Use Types Packs/Day Years [...] file Not on file Not on file COVID-19 Exposure Response Date Recorded In the last month, have you been in contact with someone who was confirmed or suspected to have Coronavirus / COVID-19? No / Unsure 08/07/2020 12:06 PM EST documented as of this encounter Plan of Treatment Not on file documented as of this encounter Procedures Procedure Name Priority Date/Time Associated Diagnosis Comments OUTSIDE MRI/MRA Routine 08/29/2020 documented in this encounter Results * OUTSIDE MRI/MRA (08/29/2020) Provider Abstract RADIOLOGY documented in this encounter Visit Diagnoses Not on filedocumented in this encounter Care Teams Economic Analyst Relationship Specialty Start Date End Date [facility], [address] [place] [address] PCP - General Internal Medicine 07/30/20 10/21/21 Patricio Painter MD [address] [place] [address] [place] [address] PCP - General Internal Medicine 10/22/21 11/07/[address] [place] [address] PCP - General Internal Medicine 11/08/21 11/18/21 Betty Willard MD [address] [place] [address] [place] [address] PCP - General Internal Medicine 11/19/21 11/20/21 Patricio Painter MD [address] [place] [address] [place] [address] PCP - General Internal Medicine 11/21/21 Leopoldo James MD [address] [place] [address] [place] [address] Sole Painter Cardiovascular Disease 05/31/20 Claudette Valerio PA [address] [place] [address] [place] [address] Cardiology 06/18/22 05/25/23 Lindsay Carrillo NP [address] [place] [address] [place] [address] Cardiology 05/26/23 documented as of this encounter
--- OUTSIDE RECORDS SUMMARY | 2024-07-27 16:32 | XMS_ITS | Encounter Summary ---
Author Organization [facility] Address [address] [place] [address] Care Team Providers Care System Auditor Name Role Phone Leopoldo James MD Unavailable [phone] Community, Pcp Primary Care Provider Patricio Dumont MD Primary Care Provider Unavailabl e Community, Pcp Primary Care Provider UnavailBetty Alva MD Primary Care Provide r Unavailable Patricio Painter MD Primary Care Provider UnavailClaudette Geronimo Unavailable Unavailable Lindsay Carrillo NP Unavailable Reason for Visit * Reason Onset Date Comments Testing 08/21/2020 CT Chest Encounter Details Date Type Department Care Team Description 08/21/2020 Telephone Pulmonology [address] [place], [place] [phone] Sylvester Hand MD [address] [place] [phone] Testing (CT Chest ) Social History Tobacco Use Types Packs/Day Years [...] PM EST documented as of this encounter Miscellaneous Notes * Telephone Encounter - Atul Marcus - 09/26/2020 8:37 AM EDT Pt calling again on this please advise * Telephone Encounter - Aminata Whiting PA-C - 09/07/2020 4:28 PM EST Nela, may you please assist with this? Thank you so much * Telephone Encounter - Cata Sanon - 09/06/2020 11:09 AM EST Pt calling stating that she spoke with her insurance. She states that bc the PA was approved back in April and the CT scan never happened is why its been denied. Pt insurance company states that if we (pcp) do another PA marked Urgent and have it state that the appointment back in Apr never happened they will approve it this time. Please advise. * Telephone Encounter - Kitty Linares M.A. - 08/24/2020 3:40 PM EST Spoke to patient she stated her PA put in an order but was denied by insurance she stated she will call them and will call us if we need to put one instead. * Telephone Encounter - Aminata Whiting PA-C - 08/24/2020 8:11 AM EST I saw Domitila this month. She has not had a CT of the chest since May of 2019. When she saw Dr. Carreon in February, he ordered a CT that was supposed to be done in May of 2020. She states there was an issue with scheduling and getting the order sent to the facility, so it never happened. I re-ordered it when I saw her most recently in an effort to get her in for the test. * Telephone Encounter - Betty Willard MD - 08/23/2020 12:50 PM EST Patient is following Aminata, will forward to provider recently seen her. * Telephone Encounter - Sylvester Hand MD - 08/22/2020 5:56 PM EST No that I know. Probable the patient never had it. MA call the patient and ask. If I have to reorder please let me know. If she has it then get copy of the result. * Telephone Encounter - Nela Baugh - 08/21/2020 9:31 AM EST PREETHI Rockwell is requesting most recent CT Chest approved 05/21/2020. We do not have these results in patients chart. Do you have any CT Chest for patient that has not been sent to scanning that we can send Stacy to have this CT approved? Thank you, Nela Bey Referrals/Prior Auth Department documented in this encounter Plan of Treatment Not on file documented as of this encounter Visit Diagnoses Not on filedocumented in this encounter Care Teams System Auditor Relationship Specialty Start Date End Date [facility], Pcp [address] [facility] [address] PCP - General Internal Medicine 07/30/20 10/21/21 Patricio Painter MD [address] [place] [address] [place] [address] PCP - General Internal Medicine 10/22/21 11/07/21 [facility], Pcp [address] [facility] [address] PCP - General Internal Medicine 11/08/21 11/18/21 Betty Willard MD [address] [place] [address] [place] [address] PCP - General Internal Medicine 11/19/21 11/20/21 Patricio Painter MD [address] [place] [address] [place] [address] PCP - General Internal Medicine 11/21/21 Leopoldo James MD [address] [place] [address] [place] [address] Loop Tender Cardiovascular Disease 05/31/20 Claudette Valerio, JHONATHAN [address] [facility] [address] Cardiology 06/18/22 05/25/23 Lindsay Carrillo NP [address] [place] [address] [place] [address] Cardiology 05/26/23 documented as of this encounter
--- OUTSIDE RECORDS SUMMARY | 2024-07-27 16:32 | XMS_ITS | Encounter Summary ---
Author Organization [facility] Address [address] [place] [address] Care Team Providers Care Registry Np Name Role Phone Leopoldo James MD Unavailable [phone] Patricio Painter MD Primary Care Provider UnavailLindsay Lange NP Unavailable [phone] Encounter Details Date Type Department Care Team Description 05/27/2023 SCAN Medical Records [address] Social History Tobacco Use Types Packs/Day Years Used Date Smoking Tobacco: Every Day Vapor Started: 1988; Last attempted to quit: 1999 Smokeless Tobacco: Former Comments:vap e-cigarettes [place] Alcohol Use Standard Drinks/Week Comments Yes 0 [...] on filedocumented in this encounter Care Teams Registry Np Relationship Specialty Start Date End Date Patricio Painter MD [address] [place] [address] [place] [address] PCP - General Internal Medicine 11/21/21 Leopoldo James MD [address] [place] [address] [place] [address] Editorial Cartoonist Cardiovascular Disease 05/31/20 Lindsay Carrillo NP [address] [place] [address] Amelia Meier [address] [place] [address] Cardiology 05/26/23 documented as of this encounter
--- OUTSIDE RECORDS SUMMARY | 2024-07-27 16:32 | XMS_ITS | Encounter Summary ---
Author Organization [facility] Address [address] [place] [address] Care Team Providers Care Refrigeration Plant Operator Name Role Phone Betty Willard MD Primary Care Provide r Unavailable Leopoldo James MD Unavailable [phone] [facility], Pcp Primary Care Provider Patricio Dumont MD Primary Care Provider Unavailconcepcion e [facility], Pcp Primary Care Provider Betty Cochran MD Primary Care Provide r Unavailable Patricio Painter MD Primary Care Provider UnavailClaudette Geronimo Unavailable Unavailable Lindsay Carrillo NP Unavailable [phone] Reason for Visit * Reason Comments E-prescribe Rx Request Encounter Details Date Type Department Care Team Description 07/25/2020 Refill Adult Medicine [address] [address] Aminata Whiting PA-C E-prescribe Rx Request Social History Tobacco Use Types Packs/Day Years Used Date Smoking Tobacco: Every Day Vapor Started: 1988; Last attempted to quit: 1999 Smokeless Tobacco: Never Comments:vap Alcohol Use Standard Drinks/Week Comments Yes [...] have Coronavirus / COVID-19? No / Unsure 07/09/2020 3:13 PM EST documented as of this encounter Miscellaneous Notes * Telephone Encounter - Jennifer Gutierres - 07/25/2020 9:28 AM EST Patient would like script to be: E-PRESCRIBED/FAXED TO PHARMACY WHEN WAS THE PATIENT'S LAST APPOINTMENT IN ADULT MEDICINE? 02/06/2020 WHEN WAS THE LAST TIME THE PATIENT SAW THEIR PCP? Same as above Does patient have an upcoming appointment? Yes 08/08/2020 (THE MEDICATION REQUESTED IS ON THE MED LIST ABOVE) All of the medications requested were on the CURRENT MEDS list Did you check the Pharmacy information above?: YES Patient wants: 30 -day supply Is this a mail order prescription request ? NO If the refill is from a FAXED refill request what is the RX # listed on the fax? N/A Patients current insurance carrier is: Payor: [facility] PUBLIC PLAN / Plan: [facility] TYPE II $10/$18 / Product Type: HMO [id number] documented in this encounter Plan of Treatment Not on file documented as of this encounter Visit Diagnoses Not on filedocumented in this encounter Care Teams Refrigeration Plant Operator Relationship Specialty Start Date End Date Betty Willard MD PCP - General Internal Medicine 05/14/20 [facility], Pcp [address] [place] [address] PCP - General Internal Medicine 07/30/20 10/21/21 Patricio Painter MD [address] [place] [address] PCP - General Internal Medicine 10/22/21 11/07/21 [facility], Pcp [address] [facility] [address] PCP - General Internal Medicine 11/08/21 11/18/21 Betty Willard MD PCP - General Internal Medicine 11/19/21 Patricio Painter MD [address] [place] [address] [place] [address] PCP - General Internal Medicine 11/21/21 Leopoldo James MD [address] [facility] [address] Sanding Machine Operator Or Tender Cardiovascular Disease 05/31/20 Claudette Valerio, JHONATHAN [address] [facility] [address] Cardiology 06/18/22 05/25/23 Lindsay Carrillo NP [address] [place] [address] [place] [address] Cardiology 05/26/23 documented as of this encounter
--- OUTSIDE RECORDS SUMMARY | 2024-07-27 16:32 | XMS_ITS | Encounter Summary ---
Author Organization [facility] Address [address] [place] [address] Care Team Providers Care Gas Engine Operator Generators Name Role Phone Leopoldo James MD Unavailable [phone] [facility], Pcp Primary Care Provider Patricio Dumont MD Primary Care Provider [place] [facility], Pcp Primary Care Provider Betty Cochran MD Primary Care Provide r Unavailable Patricio Painter MD Primary Care Provider Claudette Marquez Unavailable Unavailable Lindsay Carrillo NP Unavailable [phone] Encounter Details Date Type Department Care Team Description 08/15/2020 Pt. Non Urgent Medical Question Adult Medicine - [address] [address] Aminata Whiting PA-C Obstructive sleep apnea (Primary Dx) Social History Tobacco Use Types Packs/Day Years [...] PM EST documented as of this encounter Patient Instructions * Patient Instructions* Aminata Whiting PA-C - 08/17/2020 1:47 PM EST Sleep apnea is a serious medical condition. Untreated sleep apnea is linked to abnormal heart beats, heart attacks, strokes, sudden , diabetes, high blood pressure, anxiety, depression and motorvehicle crashes. Common symptoms of sleep apnea are: trouble falling/staying asleep, waking up frequently at night, snoring, waking choking or gasping for air, stopping breathing in sleep, restless legs, feeling tired, being cantu or irritable, inability to concentrate and inability to lose weight despite dieting and exercising. Types of Sleep Studies: There are 2 types of sleep studies (polysomnongrams) that are used to check for sleep apnea. The study results will help guide therapy for any sleep apnea identified. A Home Sleep Study (Out of Center Testing) is often used to see if you have snoring, any periods when you stop breathing, breath very shallow or have drops in your oxygen level while you are sleeping. Basically, you apply a band around your chest, an oxygen sensor to your finger and flow meter (like a nasal cannula) on your face for the study. An Overnight Sleep Center Study is done at an overnight facility that has special equipment to monitor snoring, stopping breathing, shallow breathing and oxygen level as well. This study will also check your stages of sleep (light sleep, deeper sleep, and rapid eye movement sleep), heart rate and leg movement. Depending on your symptoms, physical examination and medical history, it may be recommended to have the Overnight Sleep Center Study instead of the Home Sleep Study. Coordinating the Study: Our prior authorization department staff will ask your healthcare insurance company for approval tohave the study done. Healthcare insurance companies determine which type of sleep study is approved. Once this approval is received, you will be contacted about scheduling the sleep study. - If your insurance approves/requires a Home Sleep Study, the referral will be sent to Sleep Medicine Services at [address] [place] [address], [address], [facility]. They will call you to schedule the study. Their number is [phone]. - If your insurance approves/requires an Overnight Sleep Center Study, the referral will be sent too Sleep Center to coordinate the study. There are a couple of insurances that require these studies to be done outside our Sleep Center and if yours is one of them, you will most likely be sent to Sleep Medicine Services or [facility]. Results: We usually get the results of those studies within 2 weeks of you returning the machine. If you do not hear from us 2 weeks after the study, please call us and we will call Sleep Medicine Services. If you do NOT have sleep apnea, we will send you a MyChart message or letter. If you DO have sleep apnea, we will coordinate an appointment for you to move forward with care. Additional Testing: If you have severe sleep apnea, certain types of sleep apnea (brain, heart or lung issues) and/or have low oxygen levels for more than a few minutes a night, an overnight treatment study in the SleepCenter lab using the Positive Airway Pressure therapy may be recommended. Sometimes, people need more than one overnight treatment study to figure out the best therapy for them. General Information: 1. If your study shows SNORING but not sleep apnea, weight management to a normal body mass index, side lying sleep position, Ear Nose Throat specialist evaluation, Breathe Rite nasal strips, Theravent nasal strips and Dvhu-Abj-Igxkpka Mandibular Advance Devices (anti-snore devices) may be helpful. 2. If you study shows SLEEP APNEA, it may be recommended that you use a Positive Airway Pressure Device or similar machine to help keep your airways more open at night. 3. If you have an Overnight Study that shows PERIODIC LEG MOVEMENT, IRREGULAR HEART BEATS OR SLEEP CYCLE PROBLEMS, you may be referred to a specialist for management. documented in this encounter Miscellaneous Notes * Telephone Encounter - Faviola Dobbs L.P.N. - 08/15/2020 9:26 AM EST From: Domitila Zaragoza To: Aminata Whiting PA-C Sent: 08/15/2020 8:55 AM EST Subject: Medical question Dread Joseph, I am wondering, and I may need to ask Dr. James, but do you know if my heart condition could be related to me having sleep apnea and not using the CPap machine? I believe I was diagnosed just over3 years ago with it and tried to use the cpap for about a month but never got u se to it so decidednot to continue using it. So I am not using anything at all for my sleep apnea. Also on another note, I am considering taking a medical leave of absence from my job. I am not sureif I will be able to but between my depression and trying to deal with my heart condition I am having a hard time functioning with everything. Dr. James has me starting a 3rd medicine which he claims should not make me feel any worse then I currently feel however the side effects shows all the same as I have been feeling with the other 2 and more. Extremely tired, weak, lightheaded, and dizzy,etc. They may need a medical note which I would ask you and Dr. James for it. I did call my previous therapist but she has me on a waiting list to see her until she has an opening available. Thank you and feel free to call me at anytime to discuss an y of this. Feng Zaragoza documented in this encounter Plan of Treatment Scheduled Orders Name Type Priority Associated Diagnoses Orde r Schedule TREATMENT SLEEP STUDY-16 CHANNEL SLEEP STUDY Routine Obstructive sleep apnea Expected: 08/17/2020, Expires: 08/17/2021 documented as of this encounter Visit Diagnoses Diagnosis Obstructive sleep apnea- Primary Obstructive sleep apnea (adult) (pediatric) documented in this encounter Care Teams Gas Engine Operator Generators Relationship Specialty Start Date End Date [facility], [place] [address] PCP - General Internal Medicine 07/30/20 10/21/21 Patricio Painter MD [address] [place] [address] [place] [address] PCP - General Internal Medicine 10/22/21 11/07/21 [facility], Pcp [address] [place] [address] [place] [address] PCP - General Internal Medicine 11/08/21 11/18/21 Betty Willard MD [address] [facility] [place] [address] PCP - General Internal Medicine 11/19/21 11/20/21 Patricio Painter MD [address] [facility] [place] [address] PCP - General Internal Medicine 11/21/21 Leopoldo James MD [address] [place] [address] [place] [address] Mast Maker Cardiovascular Disease 05/31/20 Claudette Valerio PA [address] [facility] [place] [address] Cardiology 06/18/22 05/25/23 Lindsay Carrillo, LINETTE [address] [place] [address] [place] [address] Cardiology 05/26/23 documented as of this encounter
--- OUTSIDE RECORDS SUMMARY | 2024-07-27 16:32 | XMS_ITS | Encounter Summary ---
Author Organization [facility] Address [address] [place] [address] Care Team Providers Care Property Underwriter Name Role Phone Melany Jama DO Primary Care Pro vider Unavailable Melissa Melendez Primary Care Provider Unavailabl e Kristian Miller Primary Care Provider UnavailBetty Alva MD Primary Care Provide r Unavailable Ryan Osorio NP Primary Care Provider Unavailab Betty Beaver MD Primary Care Provide r Unavailable Leopoldo James MD Unavailable [phone] [facility], Pcp Primary Care Provider UnavailPatricio Fallon MD Primary Care Provider Unavailabl e [facility], Pcp Primary Care Provider UnavailBetty Alva MD Primary Care Provide r Unavailable Patricio Painter MD Primary Care Provider Unavailabl Claudette Sosa Unavailable Unavailable Lindsay Carrillo NP Unavailable [phone] Encounter Details Date Type Department Care Team Description 02/28/2018 SCAN Medical Records [address] [place] [id number] Timoteo Maki Social History Tobacco Use Types Packs/Day Years [...] Name Priority Date/Time Associated Diagnosis Comments OUTSIDE SLEEP STUDY Routine 02/28/2018 documented in this encounter Results * OUTSIDE SLEEP STUDY (02/28/2018) Provider Default PULMONOLOGY documented in this encounter Visit Diagnoses Not on filedocumented in this encounter Care Teams Property Underwriter Relationship Specialty Start Date End Date Melany Jama DO PCP - General Internal Medicine 11/08/14 07/11/18 Melissa Melendez PCP - General Family Practice 07/12/18 08/26/18 Kristian Miller PCP - General Family Practice 08/27/18 10/05/18 Betty Willard MD PCP - General Internal Medicine 10/06/18 Ryan Osorio NP PCP - General Internal Medicine 11/07/19 05/13/20 Betty Willard MD PCP - General Internal Medicine 05/14/20 [facility], [place] [address] PCP - General Internal Medicine 07/30/20 10/21/21 [place] [address] PCP - General Internal Medicine 10/22/21 11/07/21 [facility], [place] [address] PCP - General Internal Medicine 11/08/21 11/18/21 Betty Willard MD PCP - General Internal Medicine 11/19/21 Patricio Painter MD [address] [place] [address] [place] [address] PCP - General Internal Medicine 11/21/21 Leopoldo James MD [address] [place] [address] Director Trading Cardiovascular Disease 05/31/20 Claudette Valerio PA [address] [facility] [place] [address] Cardiology 06/18/22 05/25/23 Lindsay Carrillo NP 2 [facility] [place] [address] Cardiology 05/26/23 documented as of this encounter
--- OUTSIDE RECORDS SUMMARY | 2024-07-27 16:32 | XMS_ITS | Encounter Summary ---
Author Organization [facility] Address [address] [place] [address] Care Team Providers Care Abrading Machine Tender Name Role Phone Melany Jama DO Primary Care Pro vider Unavailable Melissa Melendez Primary Care Provider Unavailabl e Kristian Miller Primary Care Provider UnavailBetty Alva MD Primary Care Provide r Unavailable Ryan Osorio NP Primary Care Provider Unavailab Betty Beaver MD Primary Care Provide r Unavailable Leopoldo James MD Unavailable [phone] [facility], Pcp Primary Care Provider UnavailPatricio Fallon MD Primary Care Provider Unavailabl e [facility], Pcp Primary Care Provider UnavailBetty Alva MD Primary Care Provide r Unavailable Patricio Painter MD Primary Care Provider Unavailabl Claudette Sosa Unavailable Unavailable Lindsay Carrillo NP Unavailable [phone] Encounter Details Date Type Department Care Team Description 11/26/2016 Pt. Non Urgent Medic al Question Adult Medicine [address] [address] Melany Jama DO Social History Tobacco Use Types Packs/Day Years [...] on file documented as of this encounter Progress Notes * Jenny Fournier M.A. - 11/26/2016 9:18 AM EDTFrom: Candida Zaragoza To: Melany Casas DO Sent: 11/26/2016 9:10 AM EDT Subject: Test The hormone test is called anti mullerion hormone serum. Also i did have my mamogram done at [facility] the [facility] [place]. documented in this encounter Plan of Treatment Not on file documented as of this encounter Visit Diagnoses Not on filedocumented in this encounter Care Teams Abrading Machine Tender Relationship Specialty Start Date End Date Melany [...] - General Internal Medicine 05/14/20 [facility], [place] [address] PCP - General Internal Medicine 07/30/20 10/21/21 [place] [address] PCP - General Internal Medicine 10/22/21 11/07/21 [facility], [place] [address] PCP - General Internal Medicine 11/08/21 11/18/21 Betty Willard MD PCP - General Internal Medicine 11/19/21 Patricio Painter MD [address] [place] [address] [place] [address] PCP - General Internal Medicine 11/21/21 Leopoldo James MD [address] [place] [address] [place] [address] Staffing Analyst Cardiovascular Disease 05/31/20 Claudette Valerio PA [address] [place] [address] [place] [address] Cardiology 06/18/22 05/25/23 Lindsay Carrillo NP [address] [place] [address] [place] [address] Cardiology 05/26/23 documented as of this encounter
--- OUTSIDE RECORDS SUMMARY | 2024-07-27 16:32 | XMS_ITS | Encounter Summary ---
Author Organization [facility] Address [address] [place] [address] Care Team Providers Care Freight Traffic Consultant Name Role Phone Leopoldo James MD Unavailable [phone] Patricio Painter MD Primary Care Provider UnavailLindsay Lange NP Unavailable [phone] Encounter Details Date Type Department Care Team Description 05/29/2023 SCAN Medical Records [address] [place] [address] Abstract, Provider Social History Tobacco Use Types Packs/Day Years [...] Name Priority Date/Time Associated Diagnosis Comments OUTSIDE LAB Routine 05/29/2023 documented in this encounter Results * OUTSIDE LAB (05/29/2023) Provider Default LAB documented in this encounter Visit Diagnoses Not on filedocumented in this encounter Care Teams Freight Traffic Consultant Relationship Specialty Start Date End Date Patricio Painter MD [address] [place] [address] [place] [address] PCP - General Internal Medicine 11/21/21 Leopoldo James MD [address] [place] [address] [place] [address] Clockmaker Cardiovascular Disease 05/31/20 Lindsay Carrillo NP [address] [place] [address] [address] Cardiology 05/26/23 documented as of this encounter
--- OUTSIDE RECORDS SUMMARY | 2024-07-27 16:32 | XMS_ITS | Encounter Summary ---
Author Organization [facility] Address [address] [place] [address] Care Team Providers Care Online Merchant Name Role Phone Leopoldo James MD Unavailable [phone] [facility], Pcp Primary Care Provider Patricio Dumont MD Primary Care Provider Unavailconcepcion e [facility] [place] [facility], Pcp Primary Care Provider Betty Cochran MD Primary Care Provide r Unavailable Patricio Painter MD Primary Care Provider UnavailClaudette Geronimo Unavailable Unavailable Lindsay Carrillo NP Unavailable [phone] Reason for Visit * Reason Comments E-prescribe Rx Request Encounter Details Date Type Department Care Team Description 10/09/2020 Refill Adult Medicine [address] [address] Aminata Whiting PA-C E-prescribe Rx Request Social [...] encounter Miscellaneous Notes * Telephone Encounter - Meenu Ashraf - 10/10/2020 10:35 AM EDT Patient would like script to be: E-PRESCRIBED/FAXED TO PHARMACY WHEN WAS THE PATIENT'S LAST APPOINTMENT IN ADULT MEDICINE? 09/19/20 WHEN WAS THE LAST TIME THE PATIENT SAW THEIR PCP? N/A Does patient have an upcoming appointment? Yes 12/20/20 (THE MEDICATION REQUESTED IS ON THE MED LIST ABOVE) All of the medications requested were on the CURRENT MEDS list Did you check the Pharmacy information above?: YES Patient wants: 90 -day supply Is this a mail order prescription request ? NO If the refill is from a FAXED refill request what is the RX # listed on the fax? N/A Patients current insurance carrier is: Payor: [facility] PLAN / Plan: [facility] TYPE II $10/$18 / Product Type: HMO [id number] documented in this encounter Plan of Treatment Not on file documented as of this encounter Visit Diagnoses Not on filedocumented in this encounter Care Teams Online Merchant Relationship Specialty Start Date End Date [facility] [place] [facility], [facility] [place] [address] PCP - General Internal Medicine 07/30/20 10/21/21 Patricio Painter MD [address] [place] [address] [place] [address] PCP - General Internal Medicine 10/22/21 11/07/21 [facility], Pcp [address] [place] [address] PCP - General Internal Medicine 11/08/21 11/18/21 Betty Willard MD [address] [place] [address] PCP - General Internal Medicine 11/19/21 11/20/21 Patricio Painter MD 2 [facility] [place] [address] PCP - General Internal Medicine 11/21/21 Leopoldo James MD [address] [place] [address] [place] [address] Scientific Manager Cardiovascular Disease 05/31/20 Claudette Valerio PA [address] [facility] [place] [address] Cardiology 06/18/22 05/25/23 Lindsay Carrillo, LINETTE [address] [place] [address] [place] [address] Cardiology 05/26/23 documented as of this encounter
--- OUTSIDE RECORDS SUMMARY | 2024-07-27 16:32 | XMS_ITS | Encounter Summary ---
Author Organization [facility] Address [address] [place] [address] Care Team Providers Care Wire Drawer Name Role Phone Melissa Melendez Primary Care Provider UnavailKristian Deleon Primary Care Provider Unavailabl e Betty Willard MD Primary Care Provide r Unavailable Ryan Osorio NP Primary Care Provider Unavailab Betty Beaver MD Primary Care Provide r Unavailable Leopoldo James MD Unavailable [phone] [facility], Pcp Primary Care Provider UnavailPatricio Fallon MD Primary Care Provider Unavailabl e [facility] Primary Care Provider UnavailBetty Alva MD Primary Care Provide r Unavailable Patricio Painter MD Primary Care Provider Unavailabl Claudette Sosa Unavailable Unavailable Lindsay Carrillo NP Unavailable [phone] Encounter Details Date Type Department Care Team Description 08/06/2018 Pharmacy Clinical Specialist Report Medical Records [address] [place] [address] Melissa Melendez Social History Tobacco Use Types Packs/Day Years Used Date Smoking Tobacco: Some Days Smokeless Tobacco: Never Alcohol Use Standard Drinks/Week Comments Not Asked [...] on filedocumented in this encounter Care Teams Wire Drawer Relationship Specialty Start Date End Date Melissa Melendez PCP - General Family Practice 07/12/18 08/26/18 Kristian Miller PCP - General Family Practice 08/27/18 10/05/18 Betty Willard MD PCP - General Internal Medicine 10/06/18 Ryan Osorio NP PCP - General Internal Medicine 11/07/19 05/13/20 Betty Willard MD PCP - General Internal Medicine 05/14/20 [facility], [address] [place] [address] PCP - General Internal Medicine 07/30/20 10/21/21 Patricio Painter MD [address] [place] [address] [place] [address] PCP - General Internal Medicine 10/22/21 11/07/[address] [place] [address] PCP - General Internal Medicine 11/08/21 11/18/21 Betty Willard MD PCP - General Internal Medicine 11/19/21 Patricio Painter MD [address] [place] [address] [place] [address] PCP - General Internal Medicine 11/21/21 Leopoldo James MD [address] [place] [address] [place] [address] Motorcycle Subassembler Cardiovascular Disease 05/31/20 Claudette Valerio PA [address] [place] [address] [place] [address] Cardiology 06/18/22 05/25/23 Lindsay Carrillo NP [address] [place] [address] [place] [address] Cardiology 05/26/23 documented as of this encounter
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
--- OUTSIDE RECORDS SUMMARY | 2024-07-27 16:32 | XMS_ITS | Encounter Summary ---
Author Organization [facility] Address [address] [place] [address] Care Team Providers Care Racing Manager Name Role Phone Betty Willard MD Primary Care Provide r Unavailable Leopoldo James MD Unavailable [phone] [facility], Pcp Primary Care Provider Patricio Dumont MD Primary Care Provider Unavailconcepcion e [facility], Pcp Primary Care Provider Betty Cochran MD Primary Care Provide r Unavailable Patricio Painter MD Primary Care Provider UnavailClaudette Geronimo Unavailable Unavailable Lindsay Carrillo NP Unavailable [phone] Reason for Visit * Reason Comments E-prescribe Rx Request Encounter Details Date Type Department Care Team Description 07/23/2020 Refill Adult Medicine [address] [address] Aminata Whiting PA-C E-prescribe Rx Request Social [...] encounter Miscellaneous Notes * Telephone Encounter - Cata Fab - 07/24/2020 8:29 AM EST Patient would like script to be: E-PRESCRIBED/FAXED TO PHARMACY WHEN WAS THE PATIENT'S LAST APPOINTMENT IN ADULT MEDICINE? 02/06/2020 WHEN WAS THE LAST TIME THE PATIENT SAW THEIR PCP? 01/21/2020 Does patient have an upcoming appointment? Yes [...] Patients current insurance carrier is: Payor: [facility] PUBLIC PLAN / Plan: [facility] TYPE II $10/$18 / Product Type: HMO [id number] documented in this encounter Plan of Treatment Not on file documented as of this encounter Visit Diagnoses Not on filedocumented in this encounter Care Teams Racing Manager Relationship Specialty Start Date End Date Betty Willard MD PCP - General Internal Medicine 05/14/20 [facility], Pcp [address] [facility] [place] [address] PCP - General Internal Medicine 07/30/20 10/21/21 Patricio Painter MD [address] [facility] [place] [address] PCP - General Internal Medicine 10/22/21 11/07/21 [facility], Pcp [address] [facility] [place] [address] PCP - General Internal Medicine 11/08/21 11/18/21 Betty Willard MD PCP - General Internal Medicine 11/19/21 Patricio Painter MD [address] [place] [address] [place] [address] PCP - General Internal Medicine 11/21/21 Leopoldo James MD [address] [facility] [place] [address] Shrimp Cleaner Cardiovascular Disease 05/31/20 Claudette Valerio, JHONATHAN [address] [facility] [place] [address] Cardiology 06/18/22 05/25/23 Lindsay Carrillo, LINETTE [address] [place] [address] [place] [address] Cardiology 05/26/23 documented as of this encounter
--- OUTSIDE RECORDS SUMMARY | 2024-07-27 16:32 | XMS_ITS | Encounter Summary ---
Author Organization [facility] Address [address] [place] [address] Care Team Providers Care Supervisor Salvage Name Role Phone Betty Willard MD Primary Care Provide r Unavailable Leopoldo James MD Unavailable [phone] [facility], Pcp Primary Care Provider Patricio Dumont MD Primary Care Provider Unavailconcepcion e [facility], Pcp Primary Care Provider Betty Cochran MD Primary Care Provide r Unavailable Patricio Painter MD Primary Care Provider UnavailClaudette Geronimo Unavailable Unavailable Lindsay Carrillo NP Unavailable [phone] Encounter Details Date Type Department Care Team Description 06/25/2020 SCAN Medical Records [address] [place] [address] Stephen Ho MD [address] [place] [address] Social History Tobacco Use Types Packs/Day Years [...] have Coronavirus / COVID-19? No / Unsure 05/31/2020 7:50 AM EST documented as of this encounter Plan of Treatment Not on file documented as of this encounter Procedures Procedure Name Priority Date/Time Associated Diagnosis Comments OUTSIDE CARDIAC CATH Routine 06/25/2020 OUTSIDE EKG Routine 06/25/2020 OUTSIDE LAB Routine 06/25/2020 documented in this encounter Results * OUTSIDE LAB (06/25/2020) Provider Default LAB * OUTSIDE EKG (06/25/2020) Provider Default CARDIOLOGY * OUTSIDE CARDIAC CATH (06/25/2020) Provider Default CARDIOLOGY documented in this encounter Visit Diagnoses Not on filedocumented in this encounter Care Teams Supervisor Salvage Relationship Specialty Start Date End Date Betty Willard MD PCP - General Internal Medicine 05/14/20 [facility], Pcp [address] [place] [address] [place] [address] PCP - General Internal Medicine 07/30/20 10/21/21 Patricio Painter MD [address] [place] [address] [place] [address] PCP - General Internal Medicine 10/22/21 11/07/21 [facility], Pcp [address] [place] [address] [place] [address] PCP - General Internal Medicine 11/08/21 11/18/21 Betty Willard MD PCP - General Internal Medicine 11/19/21 Patricio Painter MD [address] [place] [address] [place] [address] PCP - General Internal Medicine 11/21/21 Leopoldo James MD [address] [place] [address] [place] [address] Inside Sales Supervisor Cardiovascular Disease 05/31/20 Claudette Valerio PA [address] [place] [address] Dr [place] [place] [address] Cardiology 06/18/22 05/25/23 Lindsay Carrillo NP [address] [place] [address] [address] Cardiology 05/26/23 documented as of this encounter
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
--- OUTSIDE RECORDS SUMMARY | 2024-07-27 16:32 | XMS_ITS | Encounter Summary ---
Author Organization [facility] Address [address] [place] [address] Care Team Providers Care Thread Inspector Name Role Phone Melany Jama DO Primary Care Pro vider Unavailable Melissa Melendez Primary Care Provider Unavailabl e Kristian Miller Primary Care Provider Unavailabl Betty Ceballos MD Primary Care Provide r Unavailable Ryan Osorio NP Primary Care Provider Unavailab Betty Beaver MD Primary Care Provide r Unavailable Leopoldo James MD Unavailable [phone] [facility], Pcp Primary Care Provider UnavailPatricio [place] MD Primary Care Provider Unavailabl e [facility], Pcp Primary Care Provider Unavailabl Betty Ceballos MD Primary Care Provide r Unavailable Patricio Painter MD Primary Care Provider Unavailabl Claudette Sosa Unavailable Unavailable Lindsay Carrillo BENDER HAND Unavailable [phone] Reason for Visit * Reason Onset Date Comments REFERRAL 11/04/2016 Encounter Details Date Type Department Care Team Description 11/04/2016 Telephone Podiatry - [address] [address] Lindsay Ashraf DPM REFERRAL Social History Tobacco Use Types Packs/Day Years [...] encounter Miscellaneous Notes * Telephone Encounter - Aisha Manuel - 11/04/2016 9:34 AM EDT Patient was referred to Podiatry re: will request a referral to Podiatry. Reason for referral: Problem visit for plantar fasciitis Payor: Not third-green party related Tried to contact patient several times by phone and sent letter to patient as well with no response, did remove patient from referral report documented in this encounter Plan of Treatment Not on file documented as of this encounter Visit Diagnoses Not on filedocumented in this encounter Care Teams Thread Inspector Relationship Specialty Start Date End Date Melany [...] General Internal Medicine 05/14/20 [facility], [place] [address] PCP - General Internal Medicine 07/30/20 10/21/21 Pat[place] [address] PCP - General Internal Medicine 10/22/21 11/07/21 [facility], [place] [address] PCP - General Internal Medicine 11/08/21 11/18/21 Betty Willard MD PCP - General Internal Medicine 11/19/21 Patricio Painter MD [address] [place] [address] [place] [address] PCP - General Internal Medicine 11/21/21 Leopoldo James MD [address] [place] [address] [place] [address] Architecture Intern Cardiovascular Disease 05/31/20 Claudette Valerio PA [address] [place] [address] [place] [address] Cardiology 06/18/22 05/25/23 Lindsay Carrillo NP [address] [place] [address] [address] Meier [address] [place] [address] Cardiology 05/26/23 documented as of this encounter
--- OUTSIDE RECORDS SUMMARY | 2024-07-27 16:33 | XMS_ITS | Encounter Summary ---
Author Organization [facility] Address [address] [place] [address] Care Team Providers Care Director Of Diagnostic Imaging Name Role Phone Betty Willard MD Primary Care Provide r Unavailable Leopoldo James MD Unavailable [phone] [facility], Pcp Primary Care Provider Patricio Dumont MD Primary Care Provider Unavailconcepcion e [facility], Pcp Primary Care Provider Betty Cochran MD Primary Care Provide r Unavailable Patricio Painter MD Primary Care Provider UnavailClaudette Geronimo Unavailable Unavailable Lindsay Carrillo NP Unavailable [phone] Encounter Details Date Type Department Care Team Description 05/17/2020 Pt. Non Urgent Medical Question Adult Medicine - [address] [address] Aminata Whiting PA-C Need for prophylactic vaccination against Streptococcus pneumoniae (pneumococcus) (Primary Dx) Social History Tobacco Use Types [...] have Coronavirus / COVID-19? No / Unsure 04/20/2020 11:07 AM EDT documented as of this encounter Progress Notes * Faviola Dobbs L.P.N. - 05/17/2020 12:00 PM ESTFrom: Domitila Zaragoza To: Aminata Whiting PA-C Sent: 05/17/2020 11:47 AM EST Subject: Prescription Hi Aminata, I was directed by your staff to ask you to have a prescription request put in for me to have the pneumovax shot done at my pharmacy [address] [place]. My pharmacy will not give it to me without it. [place], Domitila Zaragoza documented in this encounter Plan of Treatment Scheduled Orders Name Type Priority Associated Diagnoses Orde r Schedule PNEUMOCOCCAL VACCINE,ADULT,SQ OR IM Immunizations /Injection Routine Need for prophylactic vaccination against Streptococcus pneumoniae (pneumococcus) 1 Occurrences starting 05/21/2020 until 11/17/2020 documented as of this encounter Visit Diagnoses Diagnosis Need for prophylactic vaccination against Streptococcus pneumoniae (pneumococcus)- Primary Need for prophylactic vaccination against streptococcus pneumoniae (pneumococcus) documented in this encounter Care Teams Director Of Diagnostic Imaging Relationship Specialty Start Date End Date Betty Willard MD PCP - General Internal Medicine 05/14/20 [facility], Pcp [address] [place] [address] [place] [address] PCP - General Internal Medicine 07/30/20 10/21/21 Patricio Painter MD [address] [place] [address] [place] [address] PCP - General Internal Medicine 10/22/21 11/07/21 [facility], [facility] [place] [address] PCP - General Internal Medicine 11/08/21 11/18/21 Betty Willard MD PCP - General Internal Medicine 11/19/21 Patricio Painter MD [address] [place] [address] [place] [address] PCP - General Internal Medicine 11/21/21 Leopoldo James MD [address] [place] [address] [place] [address] Education Manager Cardiovascular Disease 05/31/20 Claudette Valerio PA [address] [place] [address] [place] [address] Cardiology 06/18/22 05/25/23 Lindsay Carrillo, LINETTE [address] [place] [address] [place] [address] Cardiology 05/26/23 documented as of this encounter
--- OUTSIDE RECORDS SUMMARY | 2024-07-27 16:33 | XMS_ITS | Encounter Summary ---
Author Organization [facility] Address [address] [place] [address] Care Team Providers Care Wig Dresser Name Role Phone Leopoldo James MD Unavailable [phone] [facility], Pcp Primary Care Provider Patricio Dumont MD Primary Care Provider [place] [facility], Pcp Primary Care Provider Betty Cochran MD Primary Care Provide r Unavailable aPtricio Painter MD Primary Care Provider Claudette Marquez Unavailable Unavailable Lindsay aCrrillo NP Unavailable [phone] Encounter Details Date Type Department Care Team Description 07/31/2021 Pt. Non Urgent Medic al Question Adult Medicine - [address] [address] Betty Willard MD Social History Tobacco Use Types Packs/Day Years Used Date Smoking Tobacco: Every Day Vapor Started: 1988; Last attempted to quit: 1999 Smokeless Tobacco: Former Comments:vap e-cigarettes [place] Alcohol Use Standard Drinks/Week Comments Not Currently 0 (1 standard drink = 0.6 oz [...] on filedocumented in this encounter Care Teams Wig Dresser Relationship Specialty Start Date End Date [facility], Pcp [address] [place] [address] PCP - General Internal Medicine 07/30/20 10/21/21 Patricio Painter MD [address] [place] [address] [place] [address] PCP - General Internal Medicine 10/22/21 11/07/21 [facility], [facility] [address] [facility] [place] [address] PCP - General Internal Medicine 11/08/21 11/18/21 Betty Willard MD [address] [place] [address] [place] [address] PCP - General Internal Medicine 11/19/21 11/20/21 Patricio Painter MD [address] [facility] [place] [address] PCP - General Internal Medicine 11/21/21 Leopoldo James MD [address] [place] [address] [place] [address] Application Support Lead Cardiovascular Disease 05/31/20 Claudette Valerio PA [address] [facility] [place] [address] Cardiology 06/18/22 05/25/23 Lindsay Carrillo NP [address] [place] [address] [place] [address] Cardiology 05/26/23 documented as of this encounter
--- OUTSIDE RECORDS SUMMARY | 2024-07-27 16:33 | XMS_ITS | Encounter Summary ---
Author Organization [facility] Address [address] [place] [address] Care Team Providers Care Chief Accounting Officer Name Role Phone Leopoldo James MD Unavailable [phone] Patricio Painter MD Primary Care Provider Unavailabl e [facility], Pcp Primary Care Provider UnavailBetty Alva MD Primary Care Provide r Unavailable Patricio Painter MD Primary Care Provider UnavailClaudette Geronimo Unavailable Unavailable Lindsay Carrillo NP Unavailable [phone] Reason for Visit * Reason Comments E-prescribe Rx Request Encounter Details Date Type Department Care Team Description 11/07/2021 Refill Adult Medicine [address] [address] Eve Prieto NP E-prescribe Rx Request Social History Tobacco Use [...] Exposure Response Date Recorded In the last 10 days, have yo u been in contact with someone who was confirmed or suspected to have Coronavirus/COVID-19? No / Unsure 10/22/2021 8:17 AM EDT documented as of this encounter Miscellaneous Notes * Telephone Encounter - Delmis White - 11/08/2021 10:15 AM EDT Pcp community documented in this encounter Plan of Treatment Not on file documented as of this encounter Visit Diagnoses Not on filedocumented in this encounter Care Teams Chief Accounting Officer Relationship Specialty Start Date End Date Patricio Painter MD [address] [place] [address] [place] [address] PCP - General Internal Medicine 10/22/21 11/07/[address] [place] [address] PCP - General Internal Medicine 11/08/21 11/18/21 Betty Willard MD [address] [place] [address] [place] [address] PCP - General Internal Medicine 11/19/21 11/20/21 Patricio Painter MD [address] [place] [address] [place] [address] PCP - General Internal Medicine 11/21/21 Leopoldo James MD [address] [place] [address] [place] [address] Buffing Wheel Presser Cardiovascular Disease 05/31/20 Claudette Valerio PA [address] [place] [address] [place] [address] Cardiology 06/18/22 05/25/23 Lindsay Carrillo NP [address] [place] [address] [place] [address] Cardiology 05/26/23 documented as of this encounter
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
--- OUTSIDE RECORDS SUMMARY | 2024-07-27 16:33 | XMS_ITS | Encounter Summary ---
Author Organization [facility] Address [address] [place] [address] Care Team Providers Care National Opelint Analyst Name Role Phone Leopoldo James MD Unavailable [facility], Pcp Primary Care Provider UnavailBetty Alva MD Primary Care Provide r Unavailable Patricio Painter MD Primary Care Provider UnavailClaudette Geronimo Unavailable Unavailable Lindsay Carrillo NP Unavailable [phone] Reason for Visit * Reason Comments E-prescribe Rx Request Encounter Details Date Type Department Care Team Description 11/17/2021 Refill Adult Medicine [address] [address] Eve Prieto NP E-prescribe Rx Request Social [...] Recorded In the last 10 days, have lorin biswas been in contact with someone who was confirmed or suspected to have Coronavirus/COVID-19? No / Unsure 10/22/2021 8:17 AM EDT documented as of this encounter Plan of Treatment Not on file documented as of this encounter Visit Diagnoses Not on filedocumented in this encounter Care Teams National Opelint Analyst Relationship Specialty Start Date End Date Community, Pcp [address] [place] [address] [place] [address] PCP - General Internal Medicine 11/08/21 11/18/21 Betty Willard MD [address] [place] [address] [place] [address] PCP - General Internal Medicine 11/19/21 11/20/21 Patricio Painter MD [address] [place] [address] [place] [address] PCP - General Internal Medicine 11/21/21 Leopoldo James MD [address] [place] [address] [place] [address] Take Down Sorter Cardiovascular Disease 05/31/20 Claudette Valerio PA [address] [place] [address] [place] [address] Cardiology 06/18/22 05/25/23 Lindsay Carrillo NP [address] [place] [address] [place] [address] Cardiology 05/26/23 documented as of this encounter
--- OUTSIDE RECORDS SUMMARY | 2024-07-27 16:33 | XMS_ITS ---
Author Organization [facility] Address [address] [address] Care Team Providers Care Form Maker Name Role Phone Patricio Painter Primary Care Provider CHERRY Faust Unavailable [phone] Allergies Allergen (clinical drug ingredient) Drug/Non Drug [...] A Encounters Encounter Location Date Provider Diagnosis [facility] [address] [address] 03/15/2024 CHERRY KYA Plantar fascial fibromatosis M72.2 [...] Provider:?Cherry Chandler DPM :1970???Age:53 Y???Sex:Female D ate:03/15/2024 Address:[facility] RIVERA EDGAR CRUZ MD-[id number] Pcp:Patricio Painter Subjective: * Chief Complaints: * [...] right foot.?Neurologic:?Denies?Paralysis.?Denies?Tingling/Numbness.?Denies?Tremor.? * Medical History:? * Surgical History:?Chester iban th extraction colonoscopy diagnostic cardiac catherization [...] fascial fibromatosis, Right foot pain) * Procedure Codes:?17288 INJ T ENDON SHEATH/LIGAMENT/FASCIA, Modifiers: RT J3301 INJ TRIAMCINOLONE ACETONIDE 10 MG * Billing Information: * Visit Code:? * Procedure Codes:? INJ TENDON SHEATH/LIGAMENT/FASCIA. Modifiers: RT J3301 INJ TRIAMCINOLONE ACETONIDE 10 MG. * Sign off status: Completed true * Provider:Renay Chandler DPM Date:?03/15 Generated for Vinay dallas/Joselin/eTransmitting on:?07/27/2024 04:32 PM EST History and Physical Notes * Examination [...]
--- OUTSIDE RECORDS SUMMARY | 2024-07-27 16:33 | XMS_ITS | Encounter Summary ---
Author Organization [facility] Address [address] [place] [address] Care Team Providers Care Casino Manager Name Role Phone Leopoldo James MD Unavailable [phone] Community, Pcp Primary Care Provider Patricio Dumont MD Primary Care Provider [place] [facility], Pcp Primary Care Provider Betty Cochran MD Primary Care Provide r Unavailable Patricio Painter MD Primary Care Provider Claudette Marquez Unavailable Unavailable Lindsay Carrillo NP Unavailable [phone] Encounter Details Date Type Department Care Team Description 07/21/2021 Pt. Non Urgent Medic al Question Adult Medicine - [address] [address] Betty Willard MD Social History Tobacco Use [...] Telephone Encounter - Faviola Dobbs L.P.N. - 07/22/2021 10:03 AM EST From: Domitila Zaragoza To: Elías Willard Sent: 07/21/2021 2:05 PM EST Subject: Prescription refill Hello My levothyroxine medicine most recent prescription bottle shows 100mcg-1 tablet per day but it has been I tablet-100mcg per day for 6 days and 1.5 tablet on 7th day for a while now. I will be out of this medicine as of 08/26/21 and my refill is not available until 09/05/21. How can this problem be fixed? Tx, Domitila Zaragoza documented in this encounter Plan of Treatment Not on file documented as of this encounter Visit Diagnoses Not on filedocumented in this encounter Care Teams Casino Manager Relationship Specialty Start Date End Date Community, [place] [address] PCP - General Internal Medicine 07/30/20 10/21/21 Patricio Painter MD [address] [place] [address] [place] [address] PCP - General Internal Medicine 10/22/21 11/07/21 Community, [place] [address] PCP - General Internal Medicine 11/08/21 11/18/21 Betty Willard MD [address] [place] [address] [place] [address] PCP - General Internal Medicine 11/19/21 11/20/21 Patricio Painter MD [address] [place] [address] [place] [address] PCP - General Internal Medicine 11/21/21 Leopoldo James MD [address] [place] [address] [place] [address] Unit Assistant Cardiovascular Disease 12/3/20 Claudette Valerio PA [address] [place] [address] [address] [place] [address] Cardiology 06/18/22 05/25/23 Lindsay Carrillo NP [address] [place] [address] Cardiology 05/26/23 documented as of this encounter
--- OUTSIDE RECORDS SUMMARY | 2024-07-27 16:33 | XMS_ITS | Encounter Summary ---
Author Organization [facility] Address [address] [place] [address] Care Team Providers Care Agronomy Professor Name Role Phone Betty Willard MD Primary Care Provide r Unavailable Leopoldo James MD Unavailable Community, Pcp Primary Care Provider Patricio Dumont MD Primary Care Provider Unavailabl e [facility], Pcp Primary Care Provider UnavailBetty Alva MD Primary Care Provide r Unavailable Patricio Painter MD Primary Care Provider UnavailClaudette Geronimo Unavailable Unavailable Lindsay Carrillo NP Unavailable [phone] Reason for Referral * EXTERNAL (Routine) - Authorized/Booked Specialty Diagnoses / Procedures Referred By Contac t Referred To Contact Cardiology Diagnoses LBBB (left bundle branch block) Procedures REFERRAL TO CARDIOLOGY Betty Willard MD [address] [place] [id number] [place] [address] Referral ID Status Reason Start Date Expiration Date V isits Requested Visits Authorized SEE NOTE Authorized/B ooked 05/23/2020 08/25/2020 1 1 Encounter Details Date Type Department Care Team Description 05/23/2020 Orders Only Cardio [facility] [address] [place] [address] [address] [place] [address] Betty Willard MD LBBB (left bundle branch block) (Primary Dx) Social History Tobacco Use Types [...] as of this encounter Visit Diagnoses Diagnosis LBBB (left bundle branch block)- Primary Other left bundle branch block documented in this encounter Care Teams Agronomy Professor Relationship Specialty Start Date End Date Betty Willard MD PCP - General Internal Medicine 05/14/20 [facility], [place] [address] PCP - General Internal Medicine 07/30/20 10/21/21 Patricio Painter MD [address] [place] [address] [place] [address] PCP - General Internal Medicine 10/22/21 11/07/21 [facility], Pcp [address] [place] [address] PCP - General Internal Medicine 11/08/21 11/18/21 Betty Willard MD PCP - General Internal Medicine 11/19/21 Patricio Painter MD [address] [place] [address] [place] [address] PCP - General Internal Medicine 11/21/21 Leopoldo James MD [address] [place] [address] [place] [address] Shuttle Buggy Operator Cardiovascular Disease 05/31/20 Claudette Valerio PA [address] [place] [address] [place] [address] Cardiology 06/18/22 05/25/23 Lindsay Carrillo, LINETTE [address] [place] [address] [address] [place] [address] Cardiology 05/26/23 documented as of this encounter
--- OUTSIDE RECORDS SUMMARY | 2024-07-27 16:33 | XMS_ITS | Encounter Summary ---
Author Organization [facility] Address [address] [place] [address] Care Team Providers Care Barometers Calibrator Name Role Phone Leopoldo James MD Unavailable [phone] Patricio Painter MD Primary Care Provider UnavailClaudette Geronimo Unavailable Unavailable Lindsay Carrillo NP Unavailable [phone] Encounter Details Date Type Department Care Team Description 04/15/2022 Bell Hole Digger Report Medical Records [address] [place] [address] Erin Dotson, KNITTING MACHINE TENDER Social History Tobacco Use Types Packs/Day Years [...] on filedocumented in this encounter Care Teams Barometers Calibrator Relationship Specialty Start Date End Date Patricio Painter MD [address] [place] [address] [place] [address] PCP - General Internal Medicine 11/21/21 Leopoldo James MD [address] [place] [address] [place] [address] Inspector Final Assembly Electrical Cardiovascular Disease 05/31/20 Claudette Valerio PA [address] [place] [address] [place] [address] Cardiology 06/18/22 05/25/23 Lindsay Carrillo NP [address] [place] [address] [place] [address] Cardiology 05/26/23 documented as of this encounter
--- OUTSIDE RECORDS SUMMARY | 2024-07-27 16:33 | XMS_ITS | Encounter Summary ---
Author Organization [facility] Address [address] [place] [address] Care Team Providers Care Platinumsmith Name Role Phone Melany Jama DO Primary Care Pro vider Unavailable Melissa Melendez Primary Care Provider Unavailabl Kristian Edwards Primary Care Provider UnavailBetty Alva MD Primary Care Provide r Unavailable Ryan Osorio NP Primary Care Provider Unavailab Betty Beaver MD Primary Care Provide r Unavailable Leopoldo James MD Unavailable [phone] [facility], Pcp Primary Care Provider UnavailPatricio [place] MD Primary Care Provider Unavailabl e [facility], Pcp Primary Care Provider UnavailBetty Alva MD Primary Care Provide r Unavailable Patricio Painter MD Primary Care Provider UnavailClaudette Geronimo Unavailable Unavailable Lindsay Carrillo NP Unavailable [phone] Encounter Details Date Type Department Care Team Description 07/05/2015 Quality Control Report Medical Records [address] [place] [address] Social History Tobacco Use Types Packs/Day Years [...] on filedocumented in this encounter Care Teams Platinumsmith Relationship Specialty Start Date End Date Melany [...] - General Internal Medicine 05/14/20 [facility], [place] [address] PCP - General Internal Medicine 07/30/20 10/21/21 Patricio Painter MD [address] [place] [address] [place] [address] PCP - General Internal Medicine 10/22/21 11/07/21 [facility], [place] [address] PCP - General Internal Medicine 11/08/21 11/18/21 Betty Willard MD PCP - General Internal Medicine 11/19/21 Patricio Painter MD [address] [place] [address] [place] [address] PCP - General Internal Medicine 11/21/21 Leopoldo James MD [address] [place] [address] [place] [address] Energy Professional Cardiovascular Disease 05/31/20 Claudette Valerio PA [address] [place] [address] [place] [address] Cardiology 06/18/22 05/25/23 Lindsay Carrillo, LINETTE [address] [place] [address] [place] [address] Cardiology 05/26/23 documented as of this encounter
--- OUTSIDE RECORDS SUMMARY | 2024-07-27 16:33 | XMS_ITS | Encounter Summary ---
Author Organization [facility] Address [address] [place] [address] Care Team Providers Care Steam Box Hand Name Role Phone Melany Jama DO Primary Care Pro vider Unavailable Melissa Melendez Primary Care Provider Unavailabl e Kristian Miller Primary Care Provider UnavailBetty Alva MD Primary Care Provide r Unavailable Ryan Osorio NP Primary Care Provider Unavailab Betty Beaver MD Primary Care Provide r Unavailable Leopoldo James MD Unavailable [phone] [facility], Pcp Primary Care Provider UnavailPatricio [place] MD Primary Care Provider Unavailabl e Community, Pcp Primary Care Provider UnavailBetty Alva MD Primary Care Provide r Unavailable Patricio Painter MD Primary Care Provider Unavailabl Claudette Sosa Unavailable Unavailable Lindsay Carrillo NP Unavailable [phone] Encounter Details Date Type Department Care Team Description 01/07/2016 Orders Only Adult Medicine [address] [address] Melany Jama DO Hypothyroidism due to acquired atrophy of thyroid (Primary Dx) Social History Tobacco Use Types [...] on file documented as of this encounter Results * TSH (03/14/2016 8:26 AM EDT) TSH 2.22 0.40 - 4.00 mIU/ml 03/14/2016 1:20 PM EDT [facility] 03/14/2016 8:26 AM EDT 03/14/2016 8:27 AM EDT Melany Casas DO LAB Performing Organization Address City/State/[facility] Co de Phone Number [address] documented in this encounter Visit Diagnoses Diagnosis Hypothyroidism due to acquired atrophy of thyroid- Primary documented in this encounter Care Teams Steam Box Hand Relationship Specialty Start Date End Date Melany [...] General Internal Medicine 05/14/20 Community, [place] [address] PCP - General Internal Medicine 07/30/20 10/21/21 Patricio Painter MD [address] [place] [address] [place] [address] PCP - General Internal Medicine 10/22/21 11/07/21 [facility], Pcp [address] [facility] [address] PCP - General Internal Medicine 11/08/21 11/18/21 Betty Willard MD PCP - General Internal Medicine 11/19/21 Patricio Painter MD [address] [place] [address] [place] [address] PCP - General Internal Medicine 11/21/21 Leopoldo James MD [address] [place] [address] [place] [address] Public Speaking Coach Cardiovascular Disease 05/31/20 Claudette Valerio PA [address] [place] [address] [place] [address] Cardiology 06/18/22 05/25/23 Lindsay Carrillo, LINETTE [address] [place] [address] [place] [address] Cardiology 05/26/23 documented as of this encounter
--- OUTSIDE RECORDS SUMMARY | 2024-07-27 16:33 | XMS_ITS | Encounter Summary ---
Author Organization [facility] Address [address] [place] [address] Care Team Providers Care Wire Drawing Machine Tender Name Role Phone Melany Jama DO Primary Care Pro vider Unavailable Melissa Melendez Primary Care Provider Unavailabl e Kristian Miller Primary Care Provider UnavailBetty Alva MD Primary Care Provide r Unavailable Rayn Osorio NP Primary Care Provider Unavailab Betty Beaver MD Primary Care Provide r Unavailable Leopoldo James MD Unavailable [phone] [facility], Pcp Primary Care Provider UnavailPatricio [place] MD Primary Care Provider Unavailabl e [facility], Pcp Primary Care Provider UnavailBetty Alva MD Primary Care Provide r Unavailable Patricio Painter MD Primary Care Provider Unavailabl Claudette Sosa Unavailable Unavailable Lindsay Carrillo NP Unavailable [phone] Encounter Details Date Type Department Care Team Description 03/06/2015 Tennis Net Maker Report Medical Records [address] [place] [address] John Galvez Social History Tobacco Use Types Packs/Day Years [...] filedocumented in this encounter Care Teams Wire Drawing Machine Tender Relationship Specialty Start Date End [...] MD PCP - General Internal Medicine 05/14/20 [facility], [place] [address] PCP - General Internal Medicine 07/30/20 10/21/21 Patricio Painter MD [address] [place] [address] [place] [address] PCP - General Internal Medicine 10/22/21 11/07/21 [facility], Pcp [address] [place] [address] PCP - General Internal Medicine 11/08/21 11/18/21 Betty Willard MD PCP - General Internal Medicine 11/19/21 Patricio Painter MD [address] [place] [address] [place] [address] PCP - General Internal Medicine 11/21/21 Leopoldo James MD [address] [place] [address] [place] [address] Cloud Solutions Architect Cardiovascular Disease 05/31/20 Claudette Valerio PA [address] [place] [address] [place] [address] Cardiology 06/18/22 05/25/23 Lindsay Carrillo, LINETTE [address] [place] [address] [address] [place] [address] Cardiology 05/26/23 documented as of this encounter
--- OUTSIDE RECORDS SUMMARY | 2024-07-27 16:33 | XMS_ITS | Encounter Summary ---
Author Organization [facility] Address [address] [place] [address] Care Team Providers Care Sensor Operator Name Role Phone Melany Jama DO Primary Care Pro vider Unavailable Melissa Melendez Primary Care Provider Unavailabl Kristian Edwards Primary Care Provider UnavailBetty Alva MD Primary Care Provide r Unavailable Ryan Osorio NP Primary Care Provider Unavailab Betty [place] MD Primary Care Provide r Unavailable Leopoldo James MD Unavailable [phone] [facility], Pcp Primary Care Provider UnavailPatricio Fallon MD Primary Care Provider Unavailabl e [facility], Pcp Primary Care Provider UnavailBetty Alva MD Primary Care Provide r Unavailable Patricio Painter MD Primary Care Provider UnavailClaudette Geronimo Unavailable Unavailable Lindsay Carrillo NP Unavailable [phone] Encounter Details Date Type Department Care Team Description 07/31/2015 Digital Imaging Technician Report Medical Records [address] [place] [address] Social History Tobacco Use Types Packs/Day Years [...] on filedocumented in this encounter Care Teams Sensor Operator Relationship Specialty Start Date End Date Melany Jama DO PCP - General Internal Medicine 11/08/14 07/11/18 Melissa Melendez PCP - General Family Practice 07/12/18 08/26/18 Kristian Miller PCP - General Family Practice 08/27/18 10/05/18 Betty Willard MD PCP - General Internal Medicine 10/06/18 Ryan Osorio NP PCP - General Internal Medicine 11/07/19 05/13/20 Betty Willard MD PCP - General Internal Medicine 05/14/20 [facility], [place] [address] PCP - General Internal Medicine 07/30/20 10/21/21 Patricio Painter MD [address] [place] [address] [place] [address] PCP - General Internal Medicine 10/22/21 11/07/21 [facility], [place] [address] PCP - General Internal Medicine 11/08/21 11/18/21 Betty Willard MD PCP - General Internal Medicine 11/19/21 Patricio Painter MD [address] [place] [address] [place] [address] PCP - General Internal Medicine 11/21/21 Leopoldo James MD [address] [place] [address] [place] [address] Rn Integrity Cardiovascular Disease 05/31/20 Claudette Valerio PA [address] [place] [address] [place] [address] Cardiology 06/18/22 05/25/23 Lindsay Carrillo, LINETTE [address] [place] [address] [place] [address] Cardiology 05/26/23 documented as of this encounter
--- OUTSIDE RECORDS SUMMARY | 2024-07-27 16:33 | XMS_ITS | Encounter Summary ---
Author Organization [facility] Address [address] [place] [address] Care Team Providers Care Service Mechanic Name Role Phone Melany Jama DO Primary Care Pro vider Unavailable Melissa Melendez Primary Care Provider Unavailabl e Kristian Miller Primary Care Provider UnavailBetty Alva MD Primary Care Provide r Unavailable Ryan Osorio NP Primary Care Provider Unavailab Betty [place] MD Primary Care Provide r Unavailable Leopoldo James MD Unavailable [phone] [facility], Pcp Primary Care Provider UnavailPatricio Fallon MD Primary Care Provider Unavailabl e [facility], Pcp Primary Care Provider UnavailBetty Alva MD Primary Care Provide r Unavailable Patricio Painter MD Primary Care Provider UnavailClaudette Geronimo Unavailable Unavailable Lindsay Carrillo NP Unavailable [phone] Encounter Details Date Type Department Care Team Description 04/25/2016 Orders Only Adult Medicine [address] [address] Melany Jama DO Hypothyroidism due to acquired atrophy of thyroid; Hyperlipidemia, unspecified hyperlipidemia type Social History Tobacco Use Types Packs/Day Years [...] as of this encounter Results * TSH (07/18/2016 4:21 PM EST) TSH 1.37 0.40 - 4.00 mIU/ml 07/18/2016 5:41 PM EST [facility] 07/18/2016 4:21 PM EST 07/18/2016 4:22 PM EST Melany Casas DO LAB Performing Organization Address City/State/[facility] Co de Phone Number [address] documented in this encounter Visit Diagnoses Diagnosis Hypothyroidism due to acquired atrophy of thyroid Hyperlipidemia, unspecified hyperlipidemia type documented in this encounter Care Teams Service Mechanic Relationship Specialty Start Date End Date Melany Jama DO PCP - General Internal Medicine 11/08/14 07/11/18 Melissa Melendez PCP - General Family Practice 07/12/18 08/26/18 Kristian Millre PCP - General Family Practice 08/27/18 10/05/18 Betty Willard MD PCP - General Internal Medicine 10/06/18 Ryan Osorio NP PCP - General Internal Medicine 11/07/19 05/13/20 Betty Willard MD PCP - General Internal Medicine 05/14/20 [facility], [place] [address] PCP - General Internal Medicine 07/30/20 10/21/21 Patricio Painter MD [address] [place] [address] [place] [address] PCP - General Internal Medicine 10/22/21 11/07/21 [facility], Pcp [address] [place] [address] [place] [address] PCP - General Internal Medicine 11/08/21 11/18/21 Betty Willard MD PCP - General Internal Medicine 11/19/21 Patricio Painter MD [address] [place] [address] [place] [address] PCP - General Internal Medicine 11/21/21 Leopoldo James MD [address] [place] [address] [place] [address] Product Development Specialist Cardiovascular Disease 05/31/20 Claudette Valerio PA [address] [place] [address] [place] [address] Cardiology 06/18/22 05/25/23 Lindsay Carrillo, LINETTE [address] [place] [address] [place] [address] Cardiology 05/26/23 documented as of this encounter
--- OUTSIDE RECORDS SUMMARY | 2024-07-27 16:33 | XMS_ITS | Encounter Summary ---
Author Organization [facility] Address [address] [place] [address] Care Team Providers Care Valve Maker Name Role Phone Leopoldo James MD Unavailable [phone] [facility], Pcp Primary Care Provider UnavailBetty Alva MD Primary Care Provide r Unavailable Patricio Painter MD Primary Care Provider UnavailClaudette Geronimo Unavailable Unavailable Lindsay Carrillo NP Unavailable Encounter Details Date Type Department Care Team Description 11/13/2021 SCAN Medical Records [address] [place] [address] Abstract, Provider Social History Tobacco Use Types [...] as of this encounter Progress Notes * Claudette Valerio PA-C - 11/21/2021 12:02 PM EDT Please call patient and let her know I reviewed the results of her metabolic panel and her electrolytes are normal. Please remind her to also have her cholesterol panel drawn as Dr. Mojica ordered. documented in this encounter Plan of Treatment Not on file documented as of this encounter Procedures Procedure Name Priority Date/Time Associated Diagnosis Comments OUTSIDE LAB Routine 11/13/2021 documented in this encounter Results * OUTSIDE LAB (11/13/2021) Provider Abstract LAB documented in this encounter Visit Diagnoses Not on filedocumented in this encounter Care Teams Valve Maker Relationship Specialty Start Date End Date [facility], Pcp [address] [place] [address] [place] [address] PCP - General Internal Medicine 11/08/21 11/18/21 Betty Willard MD [address] [place] [address] [place] [address] PCP - General Internal Medicine 11/19/21 11/20/21 Patricio Painter MD [address] [place] [address] [place] [address] PCP - General Internal Medicine 11/21/21 Leopoldo James MD [address] [place] [address] [place] [address] Sensor Operator Cardiovascular Disease 05/31/20 Claudette Valerio PA [address] [place] [address] [place] [address] Cardiology 06/18/22 05/25/23 Lindsay Carrillo NP [address] [place] [address] [place] [address] Cardiology 05/26/23 documented as of this encounter
--- OUTSIDE RECORDS SUMMARY | 2024-07-27 16:33 | XMS_ITS | Encounter Summary ---
Author Organization [facility] Address [address] [place] [address] Care Team Providers Care Band Straightener Name Role Phone Leopoldo James MD Unavailable [phone] Patricio Painter MD Primary Care Provider UnavailClaudette Geronimo Unavailable Unavailable Lindsay Carrillo NP Unavailable [phone] Encounter Details Date Type Department Care Team Description 05/20/2022 SCAN Medical Records [address] [place] [id number] Leopoldo James MD [address] [place] [address] [place] [address] Social History Tobacco Use Types Packs/Day Years [...] Date/Time Associated Diagnosis Comments OUTSIDE LAB Routine 05/20/2022 documented in this encounter Results * OUTSIDE LAB (05/20/2022) Provider Default LAB documented in this encounter Visit Diagnoses Not on filedocumented in this encounter Care Teams Band Straightener Relationship Specialty Start Date End Date Patricio Painter MD [address] [place] [address] [place] [address] PCP - General Internal Medicine 11/21/21 Leopoldo James MD [address] [place] [address] [place] [address] Freelance Digital Project Manager Cardiovascular Disease 05/31/20 Claudette Valerio PA [address] [place] [address] [place] [address] Cardiology 06/18/22 05/25/23 Lindsay Carrillo NP [address] [place] [address] [place] [address] Cardiology 05/26/23 documented as of this encounter
--- OUTSIDE RECORDS SUMMARY | 2024-07-27 16:33 | XMS_ITS | Encounter Summary ---
Author Organization [facility] Address [address] [place] [address] Care Team Providers Care Aircraft Instrument Mechanic Name Role Phone Ryan Osorio NP Primary Care Provider Unavailab Betty [place] MD Primary Care Provide r Unavailable Leopoldo James MD Unavailable [phone] [facility] Primary Care Provider UnavailPatricio Fallon MD Primary Care Provider Unavailabl e [facility], [facility] Primary Care Provider UnavailBetty Alva MD Primary Care Provide r Unavailable Patricio Painter MD Primary Care Provider UnavailClaudette Geronimo Unavailable Unavailable Lindsay Carrillo NP Unavailable [phone] Encounter Details Date Type Department Care Team Description 02/17/2020 Transfer Records Medical Records [address] [place] [address] Abstract, Provider Social History Tobacco Use Types [...] on filedocumented in this encounter Care Teams Aircraft Instrument Mechanic Relationship Specialty Start Date End Date Ryan Osorio NP PCP - General Internal Medicine 11/07/19 05/13/20 Betty Willard MD PCP - General Internal Medicine 05/14/20 [facility] [address] [place] [address] PCP - General Internal Medicine 07/30/20 10/21/21 Patricio Painter MD [address] [place] [address] [place] [address] PCP - General Internal Medicine 10/22/21 11/07/[address] [place] [address] PCP - General Internal Medicine 11/08/21 11/18/21 Betty Willard MD PCP - General Internal Medicine 11/19/21 Patricio Painter MD [address] [place] [address] [place] [address] PCP - General Internal Medicine 11/21/21 Leopoldo James MD [address] [place] [address] [place] [address] Metal Leaf Layer Cardiovascular Disease 05/31/20 Claudette Valerio PA [address] [place] [address] [place] [address] Cardiology 06/18/22 05/25/23 Lindsay Carrillo NP [address] [place] [address] [place] [address] Cardiology 05/26/23 documented as of this encounter
--- OUTSIDE RECORDS SUMMARY | 2024-07-27 16:33 | XMS_ITS | Encounter Summary ---
Author Organization [facility] Address [address] [place] [address] Care Team Providers Care Yarn Conditioner Name Role Phone Melany Jama DO Primary Care Pro vider Unavailable Melissa Melendez Primary Care Provider Unavailabl e Kristian Miller Primary Care Provider UnavailBetty Alva MD Primary Care Provide r Unavailable Ryan Osorio NP Primary Care Provider Unavailab Betty [place] MD Primary Care Provide r Unavailable Leopoldo James MD Unavailable [phone] [facility], Pcp Primary Care Provider UnavailPatricio Fallon MD Primary Care Provider Unavailabl e [facility], Pcp Primary Care Provider UnavailBetty Alva MD Primary Care Provide r Unavailable Patricio Painter MD Primary Care Provider Unavailabl Claudette Sosa Unavailable Unavailable Lindsay Carrillo NP Unavailable [phone] Encounter Details Date Type Department Care Team Description 01/15/2016 Clothing Sorter Report Medical Records [address] [place] [address] [facility] [address] [place], [place] [id number] Social History Tobacco Use Types Packs/Day Years [...] on filedocumented in this encounter Care Teams Yarn Conditioner Relationship Specialty Start Date End Date Melany Jama DO PCP - General Internal Medicine 11/08/14 07/11/18 Melissa Melendez PCP - General Family Practice 07/12/18 08/26/18 Kristian Miller PCP - General Family Practice 08/27/18 10/05/18 Betty Willard MD PCP - General Internal Medicine 10/06/18 Ryan Osorio NP PCP - General Internal Medicine 11/07/19 05/13/20 Betty Willard MD PCP - General Internal Medicine 05/14/20 [facility], [facility] [place] [address] PCP - General Internal Medicine 07/30/20 10/21/21 Patricio Painter MD [address] [place] [address] [place] [address] PCP - General Internal Medicine 10/22/21 11/07/21 [facility], [facility] [place] [address] PCP - General Internal Medicine 11/08/21 11/18/21 Betty Willard MD PCP - General Internal Medicine 11/19/21 Patricio Painter MD [address] [place] [address] [place] [address] PCP - General Internal Medicine 11/21/21 Leopoldo James MD [address] [place] [address] [place] [address] Unit Aide Cardiovascular Disease 05/31/20 Claudette Valerio PA [address] [place] [address] [place] [address] Cardiology 06/18/22 05/25/23 Lindsay Carrillo NP [address] [place] [address] Amelia [address] [place] [address] Cardiology 05/26/23 documented as of this encounter
--- OUTSIDE RECORDS SUMMARY | 2024-07-27 16:33 | XMS_ITS | Encounter Summary ---
Author Organization [facility] Address [address] [place] [address] Care Team Providers Care Candy Forming Machine Operator Name Role Phone Betty Willard MD Primary Care Provide r Unavailable Leopoldo James MD Unavailable [phone] [facility], Pcp Primary Care Provider Patricio Dumont MD Primary Care Provider Unavailconcepcion e [facility], Pcp Primary Care Provider Betty Cochran MD Primary Care Provide r Unavailable Patricio Painter MD Primary Care Provider UnavailClaudette Geronimo Unavailable Unavailable Lindsay Carrillo NP Unavailable [phone] Reason for Visit * Reason Onset Date Comments Information Needed 05/21/2020 Encounter Details Date Type Department Care Team Description 05/21/2020 Telephone Adult [address] [address] Betty Willard MD Information Needed Social History Tobacco Use Types Packs/Day Years [...] encounter Miscellaneous Notes * Telephone Encounter - Marilee Cruz M.A. - 06/12/2020 3:45 PM EST Pt informed * Telephone Encounter - Betty Willard MD - 06/11/2020 4:23 PM EST I reordered the vaccine. I do see previous orders from [facility](in open order coulmn)--please check if these orders are active.\ Please cancel the duplicate orders. * Telephone Encounter - Padmini Yee - 05/31/2020 9:00 AM EST Patient calling in on this also, stating she would need an order for pharmacy anyway, so can this just be ordered and patient will have vaccine done at our office once this is ordered then nurse visit will be booked. Please order vaccine please advise. * Telephone Encounter - Atul Marcus - 05/30/2020 8:54 AM EST Pt calling back on this * Telephone Encounter - Betty Willard MD - 05/22/2020 4:48 PM EST PPSV 23 one dose before age 65 due to her comorbs * Telephone Encounter - Loida Farris L.P.N. - 05/21/2020 10:46 AM EST pneumo 23? * Telephone Encounter - Cata Sanon - 05/21/2020 10:26 AM EST Pt is calling asking about the phenomena vaccine that she will be getting at [facility]. She is asking which shot she should receive. The pharm told her that there were two that she could get. Please advisept of which shot would be best for her. Please advise. documented in this encounter Plan of Treatment Not on file documented as of this encounter Visit Diagnoses Diagnosis Need for prophylactic vaccination against Streptococcus pneumoniae (pneumococcus)- Primary Need for prophylactic vaccination against streptococcus pneumoniae (pneumococcus) documented in this encounter Care Teams Candy Forming Machine Operator Relationship Specialty Start Date End Date Betty Willard MD PCP - General Internal Medicine 05/14/20 [facility], [address] [place] [address] PCP - General Internal Medicine 07/30/20 10/21/21 Patricio Painter MD [address] [place] [address] [place] [address] PCP - General Internal Medicine 10/22/21 11/07/[address] [place] [address] PCP - General Internal Medicine 11/08/21 11/18/21 Betty Willard MD PCP - General Internal Medicine 11/19/21 Patricio Painter MD [address] [place] [address] [place] [address] PCP - General Internal Medicine 11/21/21 Leopoldo James MD [address] [place] [address] JESSICA Ya Student Specialist Cardiovascular Disease 05/31/20 Claudette Valerio PA [address] [place] [address] [place] [address] Cardiology 06/18/22 05/25/23 Lindsay Carrillo NP [address] [place] [address] [place] [address] Cardiology 05/26/23 documented as of this encounter
--- OUTSIDE RECORDS SUMMARY | 2024-07-27 16:33 | XMS_ITS | Encounter Summary ---
Author Organization [facility] Address [address] [place] [address] Care Team Providers Care Crayon Sorting Machine Feeder Name Role Phone Betty Willard MD Primary Care Provide r Unavailable Leopoldo James MD Unavailable [phone] [facility], Pcp Primary Care Provider Patricio Dumont MD Primary Care Provider Unavailconcepcion e Count Includes [facility], Pcp Primary Care Provider Betty Cochran MD Primary Care Provide r Unavailable Patricio Painter MD Primary Care Provider UnavailClaudette Geronimo Unavailable Unavailable Lindsay Carrillo NP Unavailable [phone] Encounter Details Date Type Department Care Team Description 05/28/2020 Orders Only Medical Records [address] [place] [address] Aminata Whiting, PASagarC Social History Tobacco Use Types Packs/Day Years [...] Name Priority Date/Time Associated Diagnosis Comments OUTSIDE ECHO Routine 05/03/2020 documented in this encounter Results * OUTSIDE ECHO (05/03/2020) Aminata Whiting PA-C CARDIOLOGY documented in this encounter Visit Diagnoses Not on filedocumented in this encounter Care Teams Crayon Sorting Machine Feeder Relationship Specialty Start Date End Date Betty Willard MD PCP - General Internal Medicine 05/14/20 Count Includes [facility], [address] [place] [address] PCP - General Internal Medicine 07/30/20 10/21/21 Patricio Painter MD [address] [place] [address] [place] [address] PCP - General Internal Medicine 10/22/21 11/07/[address] [place] [address] PCP - General Internal Medicine 11/08/21 11/18/21 Betty Willard MD PCP - General Internal Medicine 11/19/21 Patricio Painter MD [address] [place] [address] [place] [address] PCP - General Internal Medicine 11/21/21 Leopoldo James MD [address] [place] [address] [place] [address] Billboard Installer Cardiovascular Disease 05/31/20 Claudette Valerio PA [address] [place] [address] [place] [address] Cardiology 06/18/22 05/25/23 Lindsay Carrillo NP [address] [place] [address] [place] [address] Cardiology 05/26/23 documented as of this encounter
--- OUTSIDE RECORDS SUMMARY | 2024-07-27 16:33 | XMS_ITS | Encounter Summary ---
Author Organization [facility] Address [address] [place] [address] Care Team Providers Care Bilingual Office Assistant Name Role Phone Melany Jama DO Primary Care Pro vider Unavailable Melissa Melendez Primary Care Provider Unavailabl e Kristian Miller Primary Care Provider UnavailBetty Alva MD Primary Care Provide r Unavailable Ryan Osorio NP Primary Care Provider Unavailab Betty [place] MD Primary Care Provide r Unavailable Leopoldo James MD Unavailable [facility], Pcp Primary Care Provider UnavailPatricio Fallon MD Primary Care Provider Unavailabl e [facility], Pcp Primary Care Provider UnavailBetty Alva MD Primary Care Provide r Unavailable Patricio Painter MD Primary Care Provider Unavailabl Claudette Sosa Unavailable Unavailable Lindsay Carrillo NP Unavailable [phone] Encounter Details Date Type Department Care Team Description 11/02/2015 Clinic Coordinator Report Medical Records [address] [place] [address] John Galvez Social History Tobacco Use Types [...] on filedocumented in this encounter Care Teams Bilingual Office Assistant Relationship Specialty Start Date End Date Melany [...] - General Internal Medicine 05/14/20 [facility], [place] [address] PCP - General Internal Medicine 07/30/20 10/21/21 Patricio Painter MD [address] [place] [address] [place] [address] PCP - General Internal Medicine 10/22/21 11/07/21 [facility], Pcp [address] [place] [address] PCP - General Internal Medicine 11/08/21 11/18/21 Betty Willard MD PCP - General Internal Medicine 11/19/21 Patricio Painter MD [address] [place] [address] [place] [address] PCP - General Internal Medicine 11/21/21 Leopoldo James MD [address] [place] [address] [place] [address] Welder Tech Cardiovascular Disease 05/31/20 Claudette Valerio PA [address] [place] [address] [place] [address] Cardiology 06/18/22 05/25/23 Lindsay Carrillo, LINETTE [address] [place] [address] [address] [place] [address] Cardiology 05/26/23 documented as of this encounter
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
--- OUTSIDE RECORDS SUMMARY | 2024-07-27 16:34 | XMS_ITS | Encounter Summary ---
Author Organization [facility] Address [address] [place] [address] Care Team Providers Care X Ray Service Technician Name Role Phone Leopoldo James MD Unavailable [phone] Community, Pcp Primary Care Provider Patricio Dumont MD Primary Care Provider [place] [facility], Pcp Primary Care Provider Betty Cochran MD Primary Care Provide r Unavailable Patricio Painter MD Primary Care Provider UnavailClaudette Geronimo Unavailable Unavailable Lindsay Carrillo NP Unavailable [phone] Encounter Details Date Type Department Care Team Description 03/28/2021 SCAN Medical Records [address] [place] [address] Abstract, Provider Social History Tobacco Use Types [...] have Coronavirus / COVID-19? No / Unsure 03/25/2021 8:44 AM EDT documented as of this encounter Plan of Treatment Not on file documented as of this encounter Procedures Procedure Name Priority Date/Time Associated Diagnosis Comments OUTSIDE PLAIN FILM Routine 03/28/2021 documented in this encounter Results * OUTSIDE PLAIN FILM (03/28/2021) Provider Abstract RADIOLOGY documented in this encounter Visit Diagnoses Not on filedocumented in this encounter Care Teams X Ray Service Technician Relationship Specialty Start Date End Date [facility], [address] [place] [address] PCP - General Internal Medicine 07/30/20 10/21/21 Patricio Painter MD [address] [place] [address] [place] [address] PCP - General Internal Medicine 10/22/21 11/07/[address] [place] [address] PCP - General Internal Medicine 11/08/21 11/18/21 Betty Willard MD [address] [place] [address] [place] [address] PCP - General Internal Medicine 11/19/21 11/20/21 Patricio Painter MD [address] [place] [address] [place] [address] PCP - General Internal Medicine 11/21/21 Leopoldo James MD [address] [place] [address] [place] [address] Perforator Cardiovascular Disease 05/31/20 Claudette Valerio PA [address] [facility] [place] [address] Cardiology 06/18/22 05/25/23 Lindsay Carrillo NP [address] [place] [address] [place] [address] Cardiology 05/26/23 documented as of this encounter
--- OUTSIDE RECORDS SUMMARY | 2024-07-27 16:34 | XMS_ITS | Encounter Summary ---
Author Organization [facility] Address [address] [place] [address] Care Team Providers Care Well Tender Name Role Phone Leopoldo James MD Unavailable [phone] Community, Pcp Primary Care Provider Patircio Dumont MD Primary Care Provider [place] [facility], Pcp Primary Care Provider Betty Cochran MD Primary Care Provide r Unavailable Patricio Painter MD Primary Care Provider UnavailClaudette Geronimo Unavailable Unavailable Lindsay Carrillo NP Unavailable [phone] Encounter Details Date Type Department Care Team Description 04/30/2021 Pt. Referral Request [facility] Juan [address] [place] [id number] Md Juan Social History Tobacco Use Types Packs/Day Years [...] PM EDT documented as of this encounter Plan of Treatment Not on file documented as of this encounter Visit Diagnoses Not on filedocumented in this encounter Care Teams Well Tender Relationship Specialty Start Date End Date [facility], Pcp [address] [place] [address] [place] [address] PCP - General Internal Medicine 07/30/20 10/21/21 Patricio Painter MD [address] [place] [address] [place] [address] PCP - General Internal Medicine 10/22/21 11/07/[address] [place] [address] PCP - General Internal Medicine 11/08/21 11/18/21 Betty Willard MD [address] [place] [address] [place] [address] PCP - General Internal Medicine 11/19/21 11/20/21 Patricio Painter MD [address] [place] [address] [place] [address] PCP - General Internal Medicine 11/21/21 Leopoldo James MD [address] [place] [address] [place] [address] Assistant Professor Of German Cardiovascular Disease 05/31/20 Claudette Valerio PA [address] [facility] [place] [address] Cardiology 06/18/22 05/25/23 Lindsay Carrillo NP [address] [place] [address] [place] [address] Cardiology 05/26/23 documented as of this encounter
--- OUTSIDE RECORDS SUMMARY | 2024-07-27 16:34 | XMS_ITS | Encounter Summary ---
Author Organization [facility] Address [address] [place] [address] Care Team Providers Care Radio Frequency Engineer Name Role Phone Leopoldo James MD Unavailable [phone] Community, Pcp Primary Care Provider Patricio Dumont MD Primary Care Provider [place] [facility], Pcp Primary Care Provider Betty Cochran MD Primary Care Provide r Unavailable Patricio Painter MD Primary Care Provider Claudette Marquez Unavailable Unavailable Lindsay Carrillo NP Unavailable [phone] Encounter Details Date Type Department Care Team Description 04/17/2021 Telephone Adult [facility] - [address] [address] Betty Willard MD Social History Tobacco Use [...] have Coronavirus / COVID-19? No / Unsure 04/17/2021 1:12 PM EDT documented as of this encounter Miscellaneous Notes * Telephone Encounter - Marilee Cruz M.A. - 04/17/2021 3:53 PM EDT The patient was called back to fill out an mariah before faxing her form. Phone number to fax info to is [phone] Ext [phone] to gypsy. Pt will be called to come in and sign mariah. documented in this encounter Plan of Treatment Not on file documented as of this encounter Visit Diagnoses Not on filedocumented in this encounter Care Teams Radio Frequency Engineer Relationship Specialty Start Date End Date [facility], [place] [address] PCP - General Internal Medicine 07/30/20 10/21/21 Patricio Painter MD [address] [place] [address] [place] [address] PCP - General Internal Medicine 10/22/21 11/07/21 [facility], Pcp [address] [place] [address] [place] [address] PCP - General Internal Medicine 11/08/21 11/18/21 Betty Willard MD [address] [place] [address] [place] [address] PCP - General Internal Medicine 11/19/21 11/20/21 Patricio Painter MD [address] [place] [address] [place] [address] PCP - General Internal Medicine 11/21/21 Leopoldo James MD [address] [place] [address] [place] [address] Electronic Publishing Specialist Cardiovascular Disease 05/31/20 Claudette Valerio PA [address] [place] [address] [place] [address] Cardiology 06/18/22 05/25/23 Lindsay Carrillo, LINETTE [address] [place] [address] [place] [address] Cardiology 05/26/23 documented as of this encounter
--- OUTSIDE RECORDS SUMMARY | 2024-07-27 16:34 | XMS_ITS ---
Author Organization [facility] Address [address] [address] Care Team Providers Care Circuit Judge Name Role Phone InocencioPatricio Primary Care Provider CHERRY Faust Unavailable [phone] REASON FOR VISIT Shockwave session Medications Medication [...] ve Encounters Encounter Location Date Provider Diagnosis [facility] [address] [address] 02/11/2024 CHERRY BOLAND Plantar fascial fibromatosis M72.2 [...] Provider:?Cherry Chandler DPM :1970???Age:53 Y???Sex:Female D ate:02/11/2024 Address:[address] [place], [place] [address]R[place]A CRUZ [place], [id number] Pcp:Patricio Painter Subjective: * Chief Complaints: * [...] off status: Completed true * Provider:?Cherry Chandler DPMaida Date:?02/10 Generated for Vinay dallas/Joselin/Melissa on:?07/27/2024 04:33 PM EST
--- OUTSIDE RECORDS SUMMARY | 2024-07-27 16:34 | XMS_ITS | Encounter Summary ---
Author Organization [facility] Address [address] [place] [address] Care Team Providers Care First Sampler Name Role Phone Leopoldo James MD Unavailable [phone] Community, Pcp Primary Care Provider Patricio Dumont MD Primary Care Provider [place] lake [facility], Pcp Primary Care Provider Betty Cochran MD Primary Care Provide r Unavailable Patricio Painter MD Primary Care Provider Claudette Marquez Unavailable Unavailable Lindsay Carrillo NP Unavailable [phone] Encounter Details Date Type Department Care Team Description 04/26/2021 Pt. Non Urgent Medic al Question Adult Medicine - [address] [address] Betty Willard MD Social History Tobacco Use [...] Miscellaneous Notes * Telephone Encounter - Alize Streeter M.A. - 04/26/2021 10:29 AM EDTFrom: Domitila Zaragoza To: Elías Willard Sent: 04/26/2021 10:28 AM EDT Subject: ERIC/Reduced hours/fmla Hello, I called yesterday afternoon and left a message re: if Would allow an extended ERIC or reduced hour work schedule to allow more healing time for me. I haven't heard back from a nurse about this request. Please call me today at [phone]. Thanks Domitila Zaragoza documented in this encounter Plan of Treatment Not on file documented as of this encounter Visit Diagnoses Not on filedocumented in this encounter Care Teams First Sampler Relationship Specialty Start Date End Date [facility], [address] [place] [address] PCP - General Internal Medicine 07/30/20 10/21/21 Patricio Painter MD [address] [place] [address] [place] [address] PCP - General Internal Medicine 10/22/21 11/07/[address] JESSICA Ya PCP - General Internal Medicine 11/08/21 11/18/21 Betty Willard MD [address] [place] [address] [place] [address] PCP - General Internal Medicine 11/19/21 11/20/21 Patricio Painter MD [address] [place] [address] [place] [address] PCP - General Internal Medicine 11/21/21 Leopoldo James MD [address] [place] [address] [place] [address] Plumbing 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
== END 2024-07-27 15:02 | disposition home or self-care (01) ==
PROVIDERS: PCP Internal Medicine; Visit Provider Internal Medicine
DX: Z00.00 Encounter for general adult medical examination without abnormal findings (principal); F33.42 Major depressive disorder, recurrent, in full remission; I42.9 Cardiomyopathy, unspecified; Z91.09 Other allergy status, other than to drugs and biological substances; E03.8 Other specified hypothyroidism; I10 Essential (primary) hypertension; M81.0 Age-related osteoporosis without current pathological fracture; F17.290 Nicotine dependence, other tobacco product, uncomplicated

== ENCOUNTER → 2024-07-27 14:18 | Outpatient (BNVA) | payer OTHER, SELFPAY | PROVIDERS: PCP Internal Medicine; Visit Provider Internal Medicine | DX: Z00.01 Encounter for general adult medical examination with abnormal findings (principal); F33.42 Major depressive disorder, recurrent, in full remission; E03.8 Other specified hypothyroidism; I10 Essential (primary) hypertension; I42.9 Cardiomyopathy, unspecified; M81.0 Age-related osteoporosis without current pathological fracture; F17.290 Nicotine dependence, other tobacco product, uncomplicated; Z79.899 Other long term (current) drug therapy; Z91.09 Other allergy status, other than to drugs and biological substances | CPT/HCPCS: 96127 ==

== ENCOUNTER 2024-12-14 15:49 | Outpatient (REF) | payer OTHER, SELFPAY ==
--- NOTE | 2024-12-14 15:51 | PFT_ITS ---
Indication: Pulmonary nodule Spirometry FEV1 to FVC 77%; FEV1 2.67 L; FVC 3.45 L. No significant response to bronchodilators noted. Lung Volumes Total lung capacity 106% predicted; residual volume 110% predicted Diffusion Capacity DLCO 92% predicted Comparisons None Interpretation No obstructive nor restrictive ventilatory defects identified. No significant response to bronchodilators noted. Normal lung volumes and also normal diffusing capacity. Clinical correlation warranted. MTDD
[2024-12-14 16:22] VITALS: PULSE 74; O2SAT 97
--- OUTSIDE RECORDS SUMMARY | 2024-12-14 17:57 | XMS_ITS | Encounter Summary ---
Author Organization [facility] Address [address] [place] [address] Care Team Providers Care Cinder Block Maker Name Role Phone Leopoldo James MD Unavailable [phone] Community, Pcp Primary Care Provider Patricio Dumont MD Primary Care Provider Unavailabl e Community, Pcp Primary Care Provider UnavailBetty Alva MD Primary Care Provide r Unavailable Patricio Painter MD Primary Care Provider UnavailClaudette Geronimo Unavailable Unavailable Lindsay Carrillo NP Unavailable [phone] Reason for Visit * Reason Onset Date Comments medication problems 11/15/2020 Encounter Details Date Type Department Care Team Description 11/15/2020 Telephone Pulmonology - [place] [address] [facility] [address] [place] [address] Sylvester Hand MD [address] [facility] [address] [place] [address] medication problems Social History Tobacco Use Types Packs/Day Years [...] encounter Miscellaneous Notes * Telephone Encounter - Kitty Linares M.A. - 11/16/2020 2:06 PM EDT Please disregard this script patient stated she does not need it. * Telephone Encounter - Kitty Linares M.A. - 11/16/2020 1:58 PM EDT Levabuterol is covered * Telephone Encounter - Karla Juarez - 11/15/2020 3:53 PM EDT Who is calling? A pharmacist: Pharmacy: [facility] Pharmacy Pharmacist Name: N/A Pharmacy Name of the medication Albuterol HFA (PROAIR) Inhaler What is the specific problem or interaction? Alternative requested. Levabuterol Covered. If the patient is having a problem with taking the med - how long has the problem been going on? N/A documented in this encounter Plan of Treatment Not on file documented as of this encounter Visit Diagnoses Not on filedocumented in this encounter Care Teams Cinder Block Maker Relationship Specialty Start Date End Date Community, Pcp [address] [place] [address] PCP - General Internal Medicine 07/30/20 10/21/21 Patricio Painter MD [address] [place] [address] [place] [address] PCP - General Internal Medicine 10/22/21 11/07/21 [facility] Pcp [address] [place] [address] PCP - General Internal Medicine 11/08/21 11/18/21 Betty Willard MD [address] [place] [address] [place] [address] PCP - General Internal Medicine 11/19/21 11/20/21 Patricio Painter MD [address] [place] [address] [place] [address] PCP - General Internal Medicine 11/21/21 Leopoldo James MD [address] [place] [address] [place] [address] Funding Coordinator Cardiovascular Disease 05/31/20 Claudette Valerio PA [address] [place] [address] [place] [address] Cardiology 06/18/22 05/25/23 Lindsay Carrillo NP [address] [place] [address] [place] [address] Cardiology 05/26/23 documented as of this encounter
== END 2024-12-14 15:50 | disposition home or self-care (01) ==
LOC: HO.RESP 15:49
PROVIDERS: PCP Internal Medicine; Visit Provider Hospitalist
DX: R91.1 Solitary pulmonary nodule (principal)
CPT/HCPCS: 94010; 94640; 94727; 94729

== ENCOUNTER → 2024-12-14 15:51 | Outpatient (BNV) | payer OTHER, SELFPAY | PROVIDERS: PCP Internal Medicine; Visit Provider Hospitalist | DX: R91.1 Solitary pulmonary nodule (principal) | CPT/HCPCS: 94060; 94727; 94729 ==

== ENCOUNTER 2025-01-03 10:36 | Outpatient (AMB) | payer OTHER, SELFPAY ==
[2025-01-03 10:39] VITALS: BP 118/74; PULSE 77; O2SAT 99; BMI 25.2
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
--- OUTSIDE RECORDS SUMMARY | 2025-01-03 11:36 | XMS_ITS | Continuity of Care Document ---
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 90tabs Radha Rush M.D. Inrymbwcmttyao38dh Tablets Take 1 Tablet By Mouth Every Day Unknown Bupropion Hydrochloride ER (XL)150mg Tablets ER 24HR Take 1 Tablet By Mouth Every Morning [facility] Fluticasone Meiikvshqw13xmf/Act Suspension Instill 1 [place] Nasally Once Daily [facility] Duloxetine YNE20go Caps DR Part Take 1 Capsule By Mouth Everyday AT Bedtime Inocencio, [facility] Levalbuterol Abrdcudv22hjk/Act Aerosol 2 puff inhaled every 6 hours as needed for shortness of breath or wheezing Unknown Multivitamin WomenTablets 1 by mouth every day Radha Rush M.D. Zyrtec Wzsxvvx59mp Tablets 1 by mouth every day prn Radha Rush M.D. Vital Signs Date Vital Result Comment 10/19/2024 3:04pm BP Systolic 90 mmHg BP Diastolic 60 mmHg Heart Rate 88 /min Height 63 inches 5'3 Weight 143.25 lb BMI (Body Mass Index) 25.4 kg/m2 Results Test Acquired Date Facility Test Result H/L Range N ote TSH Rfx on Abnormal to Free T4 10/19/2024 [facility] TSH Rfx on Abnormal to Free T4 2.750 uIU/mL 0.450-4.500 Vitamin D, 25-Hydroxy 10/19/2024 [facility] Vitamin D, 25-Hydroxy 59.5 ng/mL 30.0-100.0 1 TSH Rfx on Abnormal to Free T4 06/13/2024 [facility] TSH Rfx on Abnormal to Free T4 3.930 uIU/mL 0.450-4.500 TSH RFX On Abnormal To Free T4 04/20/2024 [facility] TSH RFX On Abnormal To Free T4 <pending> TSH Rfx on Abnormal to Free T4 01/21/2024 [facility] TSH Rfx on Abnormal to Free T4 0.846 uIU/mL 0.450-4.500 TSH RFX On Abnormal To Free T4 10/21/2023 [facility] TSH RFX On Abnormal To Free T4 <pending> TSH+Free T4 10/20/2023 [facility] TSH 5.460 uIU/mL High 0.450-4.500 T4,Free(Direct ) 1.58 ng/dL 0.82-1.77 Vitamin D, 25-Hydroxy 10/20/2023 [facility] Vitamin D, 25-Hydroxy 55.1 ng/mL 30.0-100.0 2 1 Vitamin D deficiency has been defined by the [place] of Medicine and an Endocrine Society practice guideline as a level of serum 25-OH vitamin D less than 20 ng/mL (1,2). The Endocrine Society went on to further define vitamin D insufficiency as a level between 21 and 29 ng/mL (2). 1. IOM ([place] of Medicine). 2010. Dietary reference intakes for calcium and D. [place]: The National Academies Press. 2. [place] MF, Tamar WALKER, Goldie MAGALLANES, et al. Evaluation, treatment, and prevention of vitamin D deficiency: an Endocrine Society clinical practice guideline. JCEM. 2010; 96(7):1911-30. 2 Vitamin D deficiency has been defined by the [place] of Medicine and an Endocrine Society practice guideline as a level of serum 25-OH vitamin D less than 20 ng/mL (1,2). The Endocrine Society went on to further define vitamin D insufficiency as a level between 21 and 29 ng/mL (2). 1. IOM ([place] of Medicine). 2010. Dietary reference intakes for calcium and D. [place]: The National Academies Press. 2. [place] MF, Tamar [place], Goldie MAGALLANES, et al. Evaluation, treatment, and prevention of vitamin D deficiency: an Endocrine Society clinical practice guideline. JCEM. 2010; 96(0):1911-30. Procedures Date Code Description Status 10/19/2024 16899 Collection Of Venous Blood B y Venipuncture Completed Medical Devices Description No Information Available Encounters Type Date Location Provider Dx Diagnosis Office Visit 10/19/2024 3:15p Main Office Radha Rush M.D. E05.00 Thyrotoxicosis w diffuse goiter w/o thyrotoxic crisis E03.9 Hypothyroidism, unsp ecified M81.0 Age-related osteopor osis w/o current pathological fracture Assessments Date Code Description Provider 10/19/2024 E05.00 Graves' disease Radha Elise M.D. 10/19/2024 E03.9 Hypothyroidism, unspecified Radha Rush M.D. 10/19/2024 M81.0 Postmenopausal o steoporosis without current pathological fracture Radha Rush M.D. Plan of Treatment Future Appointment(s):* 04/20/2025 3:30 pm - Radha Rush M.D. at Main Office 04/20/2024 - Radha Rush M.D.* E03.9 Hypothyroidism, unspecified * M81.0 Postmenopausal osteoporosis without current pathological fracture * E05.00 Graves' disease* New Labs:* TSH RFX On Abnormal To Free T4, Ordered: 04/20/24 Functional Status Description No Information Available Mental Status Description No Information Available Referrals Refer to Dr Reason for Referral Status Appt Radha Tobin M.D. Created [address] [place] [address] [address] [place] [address] [phone] Radha Rush M.D. Created [address] [place] [address] [phone]
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
--- OUTSIDE RECORDS SUMMARY | 2025-01-03 11:36 | XMS_ITS | Data Portability ---
Author Organization JESSICA - [facility] Address [address] [place] [address] Assessment Encounter Date Assessment Date Assessment LastModified [...] [address] [facility], [address], [facility] [address], [place], [address], 4 14:04:13 Medication Orders None recorded. Patient TargetsNo targets recorded. Patient InstructionsNo instructions recorded. Reason for Referral None Reported. Results Created Date Observation Date Name Description Value Unit Range Abnormal Flag Note LastModifiedBy Organization Detail LastModifiedTime 01/14/20 24 01/14/2024 XR, lumba r spine , 2 view http:/ [email or web address] ?Encry pted=s hAaTro YD8dLq bEUv6g %2BXZw aYqtaq 0bqfl% 2Fg9IQ a4ajBk vP9nXo QUaueC m3YtLR FvZlgJ JJ8mAn HZtai3 2i9597 AC0KpY nyFVar eUC8mr 84%3D INTERFACE [facility] [address], [place], [address], 01/14/2024 08:37:25 01/14/20 24 01/14/2024 XR, lumba r spine , 2 view http:/ [email or web address] ?Encry pted=s hAaTro YD8dLq bEUv6g %2BXZw aYqtaq 0bqfl% 2Fg9IQ a4ajBk vP9nXo QUaueC m3YtLR FvZlgJ JJ8mAn HZtai3 7b1667 AC0KpY nyFVar eUC8mr 84%3D INTERFACE [facility] [address], [place], [address], 01/14/2024 08:37:26 Result Notes Documentation Provider Name and Address Organization Details Recorded Time Xr, Lumbar Spine, 2 View : [email or web address]? Encrypted=ndBmNirBM3aPmcC Uv6g%2SRYghTnbaq5kqzh%2Fg 1PTr6saWffU3pUjSMmffNo0Bq RNVjXcxYVJ2wQoZLhzj73i718 2AX2YaRlnHVfqoGX9eu74%3D Not Available [facility] 01/14/2024 08:3 7:25 Xr, Lumbar Spine, 2 View : [email or web address]? Encrypted=arQaOeaGR1tBtvX Uv6g%2UVSozPmwhq5oluv%2Fg 1XCa6etFmzD8sToGIebpIq1Lu VUIhNskAWZ1qBoVUzys92u588 0BV5LmOjpOVzjzBN1ce35%3D Not Available [facility] 01/14/2024 08:3 7:27 Medical Equipment None Reported. Allergies Allergen ID Allergen Name Allergen Category Reaction Reaction Severity Criticality Documentation Date Start Date Code Code System Note Provider Name and Address Organization Details Recorded Time 00619 Substance with sulfonami de structure and antibacte rial mechanism of action (substanc e) medicatio n Not available Not available Not available 08/31/20232021 98537 8003 SNOMED Not Available [facility] 14:33:47 84862 Product containin g penicilli n (product) medicatio n Not available Not available Not available 08/31/20232021 06076 8001 SNOMED Not Available [facility] 14:33:47 Medications Name Sig Start Date Stop [...] SNOMED-CT Code Diagnosis ICD10 Code Diagnosis Note [id number] Navi Coe MD [place] [address] [place] [address] 01/14/2024 08:17:39 02/10/2024 14:04:12 Low back pain 629282437 M54.50 Health Concerns Section Related Observation LastModified by Organization Detai ls LastModified Time None Recorded Concern Status LastModified by Organization Details LastModified Time None Recorded Advance Directives Directive None Recorded Payers Insurance Date Sequence Insurance Name Policy Number Policy [place] Covered Member ID [place] Member ID Guarantor Name 03/08/2024 1 [facility] Domitila Zaragoza [id number] Domitila Zaragoza Notes Date Note Type [...] reviewed, updated and is located in the patient s chart. TREATMENT: Full course of nonoperative care. She has had a course of physical therapy along with medication management. Injections at [facility] provided only short-term relief. MEDICATIONS: Xbgj-wyc-axfxzos products WORK STATUS: Secretarylumbar spine MRI reviewed. Study notable for degenerative disc findings fairly severe with associated collapse and neuroforaminal stenosis all isolated to the L5-S1 level. X-RAY REPORT: X-rays ordered, obtained and reviewed at [facility]. Not indicated Navi Coe MD [address], [place], [address], JESSICA - [facility] 01/14/2024 11:35:36 OBGyn Episode No OBEpisode recorded.
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
--- OUTSIDE RECORDS SUMMARY | 2025-01-03 11:37 | XMS_ITS | Patient Health Record ---
Author Organization [facility] Address [address] [facility] [place] [place] [address] Care Team Providers Care Child Development Associate Teacher Name Role Phone Victor Manuel WINKLER, Radha Primary Care Provider Unavailable Alfredo Loaiza Unavailable [phone] Allergies Allergen (clinical drug ingredient) Drug/Non Drug Allergy documented on EMR Reaction Allergy Type Onset Date Status sulfa hives Drug Allergy Active Penicillin hives Drug Allergy Active Reason For Referral No Information Medications Medication SIG (Take, Route, Fr equency, Duration) Notes Start Date End Date Status Citalopram Hydrobromide Active Synthroid Active Problems Problem Type SNOMED Code ICD Code Onset Dates Problem Status W/U Status Risk Notes Problem Bursitis (01084432) Bursitis (727.3) Active confirmed Problem Metatarsalgia (95622912) Metatarsalgia (726.70) Active confirmed Problem Pain in limb (45970891) Pain in Limb (729.5) Active confirmed Plan Of Treatment No Information Insurance Providers Payer Name Payer Address Payer Phone Subscriber Number Group Number Insured Name Patient Relationship to Insured Coverage Start Date Coverage End Date [employer] [address] [place] [address] [phone] [id number] Domitila Villafuerte Self - patient is the insured Medical (General) History Medical History History ICD Code Anxiety disorder thyroid disorder chicken pox Surgical History Surgery Date(Month/Year) section 2006
== END 2025-01-03 11:01 | disposition home or self-care (01) ==
LOC: HO.HPS 10:38
PROVIDERS: PCP Internal Medicine; Visit Provider Hospitalist
DX: R91.1 Solitary pulmonary nodule (principal); F17.290 Nicotine dependence, other tobacco product, uncomplicated; S22.000A Wedge compression fracture of unspecified thoracic vertebra, initial encounter for closed fracture; F17.200 Nicotine dependence, unspecified, uncomplicated
CPT/HCPCS: 99214

== ENCOUNTER → 2025-01-03 10:36 | Outpatient (BNVA) | payer OTHER, SELFPAY | PROVIDERS: PCP Internal Medicine; Visit Provider Hospitalist | DX: R91.1 Solitary pulmonary nodule (principal); F17.210 Nicotine dependence, cigarettes, uncomplicated; U07.0 Vaping-related disorder; S22.000A Wedge compression fracture of unspecified thoracic vertebra, initial encounter for closed fracture; X58.XXXA Exposure to other specified factors, initial encounter; Y93.9 Activity, unspecified; Y92.9 Unspecified place or not applicable; Y99.9 Unspecified external cause status | CPT/HCPCS: 99212 ==

== ENCOUNTER 2025-03-07 11:01 | Outpatient (REF) | payer OTHER, SELFPAY ==
[2025-03-07 13:05] LABS: MANUAL DIFF FLAG NO
[2025-03-07 13:17] LABS: Hematocrit 44.3 % (37.0-47.0); Hemoglobin 14.1 g/dl (12.0-16.0); Imm Gran Abs Auto 0.01 X10*3/uL (0.00-0.03); Imm Gran Pct Auto 0.2 % (0.0-0.4); Lymphocytes Absolute Auto 1.7 X10*3/uL (1.2-4.9); Mean Corpuscular HGB Conc 31.8 g/dl (31.0-35.0); Mean Corpuscular Hemoglobin 29.3 pg (27.0-33.0); Mean Corpuscular Volume 92.1 fL (80.0-98.0); NRBC Abs Auto 0.000 X10*3/uL (0.0-0.012); NRBC Pct Auto 0.0 /100WBC (0.0-0.2); Platelet Count 248 X10*3/uL (160-400); Red Blood Count 4.81 X10*6/uL (4.20-5.50); White Blood Count 5.2 X10*3/uL (4.8-10.8)
[2025-03-07 13:55] LABS: Alanine Aminotransferase 30 U/L (0-31); Albumin Level 4.4 g/dL (3.5-5.0); Alkaline Phosphatase 90 U/L (39-117); Anion Gap 11 (12-20); Aspartate Amino Transferase 32 U/L (5-31); Blood Urea Nitrogen 18 mg/dL (9-16); Calcium 9.3 mg/dL (8.4-10.2); Carbon Dioxide 27 mmol/L (22-29); Chloride 106 mmol/L (96-108); Estimated Glomerular Filt Rate > 60; Potassium 4.1 mmol/L (3.3-5.1); Sodium 140 mmol/L (135-145); Total Protein 7.3 g/dL (6.5-8.0)
== END 2025-03-07 11:02 | disposition home or self-care (01) ==
LOC: HO.HMGCLDS 11:01
PROVIDERS: PCP Internal Medicine; Visit Provider Internal Medicine
DX: Z91.09 Other allergy status, other than to drugs and biological substances (principal); F33.42 Major depressive disorder, recurrent, in full remission; I10 Essential (primary) hypertension; I42.9 Cardiomyopathy, unspecified; E03.8 Other specified hypothyroidism; M25.511 Pain in right shoulder; M79.644 Pain in right finger(s); Z79.890 Hormone replacement therapy; Z79.899 Other long term (current) drug therapy
CPT/HCPCS: 36415; 80053; 83721; 85025; 96127; 99212

== ENCOUNTER 2025-03-07 11:01 | Outpatient (AMB) | payer OTHER, SELFPAY ==
--- OUTSIDE RECORDS SUMMARY | 2024-02-09 12:00 | XMS_ITS ---
Author Organization [facility] Address [address] [address] Care Team Providers Care Credit Verification Clerk Name Role Phone Patricio Painter Primary Care Provider DIONICIO Faust Unavailable [phone] REASON FOR VISIT Rt foot shockwave session #3 Encounters Encounter Location Date Provider Diagnosis [facility] [address] [address] 02/09/2024 DIONICIO BOLAND Plan Of Treatment No Information Progress Notes * Domitila MARSHDOB:[birth year] (54 yo F)Acc No.[id number]:02/09/2024 Patient: Krystyna BELTRANABELDomitila Provider: Tawnya Chandler DPM :1970 A ge:53 Y S ex:Female Date:02/09/2024 Address:[id number] Pcp:Patricio Painter Subjective: * Chief Complaints: * 1 . Rt foot shockwave session #3. * Medical History: Objective: * Vitals: Assessment: Plan: * Treatment: * Billing Information: * Visit Code: * Procedure Codes: * Electronic signature of DEBORAH BOLAND D.P.M. on 03/07/2025 at 01:22 PM EDT Sign off status: Pending * Provider: Tawnya Chandler DPM Date: 02/09/2024 Generated for Vinay dallas/Joselin/eTransmitting on: 03/07/2025 01:22 PM EDT
[2025-03-07 11:05] VITALS: BP 116/70; PULSE 73; O2SAT 99; BMI 25.5
--- NOTE | 2025-03-07 11:05 | A.OFFPC_ITS ---
Vital Signs 03/07/25 11:05 Height 5 ft 3 in Weight 144 lb BMI 25.5 BP 116/70 Blood Pressure Location Lt brachial Position Sitting Pulse 73 Pulse Source Pulse Oximeter Pulse Oximetry (%) 99 Intake Visit Reasons: 6 month follow up Allergies penicillin V Allergy (Mild, Verified 03/07/25 11:09) hives Sulfa (Sulfonamide Antibiotics) Allergy (Mild, Verified 03/07/25 11:09) hives Medication List - Last Reconciled 03/07/25 by Patricio Painter MD atorvastatin 10 mg PO BEDTIME bupropion HCl XL 150 mg PO QAM dapagliflozin propanediol (Farxiga) 10 mg PO DAILY duloxetine 20 mg PO BEDTIME fluticasone propionate 50 mcg/actuation 1 spray intranasal DAILY levalbuterol tartrate 45 mcg/actuation (Xopenex HFA) 1 puff inhalation Q6H PRN 30 days levothyroxine 100 mcg PO QAM metoprolol succinate ER 25 mg PO BEDTIME sacubitril-valsartan 24-26 mg (Entresto) 1 tab PO .qd spironolactone 25 mg PO BEDTIME Tobacco use date assessed: 07/27/24 Dental Screening Dental Screen Date: 07/27/24 HPI 6 month follow up HPI Details History The patient is a 54-year-old female presenting with right thumb and right shoulder pain. Right thumb pain: - The patient reports experiencing pain in her right thumb for the past couple of months. 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 - The thumb pain has been persistent and has negatively impacted her ability to perform daily tasks at home, such as vacuuming and doing dishes, and also interfered with typing and writing at work. - The patient expresses concern about wh ether she should consult an stars specialist or if the issue could be managed through other means. Right shoulder pain: - The patient describes experiencing octavia n in her right shoulder. - The shoulder pain is speculated to be muscular in nature, possibly involving the biceps muscle. - She has full ROM in shoulder, mild dis comfort anteriorly with palpation Depression : still feeling depressed , we will be increasing her wellbutrin to 300 mg continue duloxetine , both meds from PCP office Medical History: - Cardiomyopathy with history of ischemi c cardiomyopathy and an ejection fraction of 45-48% - Hypertension - Hyperlipidemia - Hypothyroidism - Nicotine dependence - Osteoporosis with a last T score of -2 .7 from 2022 - Pulmonary nodule Medications - Levothyroxine 100 mcg for hypothyroidi sm - Metoprolol for cardiovascular manageme nt - Valsartan/Sacubitril (Entresto) for ca rdiomyopathy - Spironolactone for cardiovascular chiki gement - Zopinex (indication not specified) - Duloxetine from this office - Bupropion 150 mg from this office - Farxiga (indication not specified) - Nasal spray from this office Social History: - 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 - She vapes and uses approximately one p od every two days. - Reports being cantu and having increas ed irritability, potentially related to vaping and current medication dosage. - The patient takes a multivitamin and a n occasional vitamin D supplement. - The patient does not currently take an y allergy medications and manages symptoms as they arise. Family History: - Sister has prediabetes. - History of diabetes in father and sist er. Problem List - Right thumb tendonitis due to overuse - Right shoulder pain, possibly muscular - Ischemic Cardiomyopathy - Hypertension - Hyperlipidemia - Nicotine dependence - Hypothyroidism - Osteoporosis Diagnostic results Labs: - Last bone density in 2022 showed T score of -2.7. [facility] - The patient is seeing a construction rigger, Dr. James, for cardiomyopathy. - The patient is under the care of Dr. Mary Ann lopez for pulmonary concerns and a noted pulmonary nodule. - Boomboat Operator Dr. Radha hernandez manages hypothyroidism and vitamin D levels. - Patient sees Dr. Garza for cardiac h ealth. - The patient is considering a referral to a hand specialist for right thumb pain. Patient Instructions - Seek consultation with a hand speciali st for the right thumb pain. - Undergo physical therapy for right jennifer ulder pain. - Consider a cortisone injection if nash cated. - Follow up with construction rigger and other specialists as per usual schedule. - Increase bupropion dose to 300 mg as a dvised for mood management. - Monitor thumb and shoulder conditions, report any significant changes. f/u 6 M for depression , get back to me in 3 wks to update me on increase dose of wellbutrin Review of Systems General: No fever no chills neurological: No headaches no dizziness ear nose throat: No sore throat no hearing difficulty no ear pain cardiovascular: No syncope, no chest pain, no palpitations gastrointestinal: No nausea vomiting or diarrhea endocrine: No polyuria polydipsia no heat intolerance genitourinary: No dysuria skin: No new complaints Physical Exam general: No acute distress HEENT: No acute findings neck: Supple respiratory system: Able to talk in full sentences, no audible wheeze no stridor cardiovascular: S1-S2 RRR gastrointestinal: no pain extremities: Pain in the right thumb and shoulder right , ROM intact in shoulder and thumb, vascular intact BUTTONHOLE TACKER: Alert awake oriented x3 motor sensory intact skin: Normal turgor PFSH Medical History Cardiomyopathy HFrEF (heart failure with reduced ejection fraction) Left bundle branch block Hypertension, essential Hyperlipidemia Sleep apnea Pneumothorax, closed, traumatic Pulmonary nodule Vaping nicotine dependence, tobacco product Personal history of nicotine dependence History of COVID-19 Hypothyroid History of Graves' disease Osteoporosis H/O compression fracture of spine Back pain Anxiety Depression Surgical History History of cardiac catheterization History of colonoscopy Family History Father Hypertension COPD (chronic obstructive pulmonary disease) Mother Hypertension Hypothyroid Social History Housing: House Patient Tobacco Use Status: Former Tobacco user Tobacco use type: Cigarette Years Smoked: 5 Years e-Cigarette/Vaping Use: Currently Using service: No Current occupational status: employed Cognitive needs: No Hearing needs: No Vision needs: Yes Questionnaire PHQ-9 Over the last 2 weeks, how often have you been bothered by any of the following problems? 1. Little interest or pleasure in doing things: several days 2. Feeling down, depressed, or hopeless: several days 3. Trouble falling or staying asleep, or sleeping too much: not at all 4. Feeling tired or having little energy: nearly every day 5. Poor appetite or overeating: not at all 6. Feeling bad about yourself - or that you are a failure or have let yourself or your family down: not at all 7. Trouble concentrating on things, such as reading the newspaper or watching television: several days 8. Moving or speaking so slowly that other people could have noticed. Or the opposite - being so fidgety or restless that you have been moving around a lot more than usual: not at all 9. Thoughts that you would be better off or of hurting yourself in some way: not at all Total score: 6 Depression Screening Interpretation: Negative Depression Screening Done: Yes 70920 - PHQ-9 Billing: Yes Source: Developed by Drs. Navi Purcell, Georgina Michelle, Jeremiah Marsh and colleagues, with an educational kae from [employer]. Thrive Questionnaire Date Thrive assessed: 07/27/24 I am a: Patient What is your living situation today?: I have a steady place to live Within the past 12 months, did the food you bought not last and you didn't have the money to get more?: I choose not to answer this question Within the past 12 months, did you worry whether your food would run out before you got money to buy more?: Never true Do you have trouble paying for medicines?: No Do you have trouble getting transportation to medical appointments?: No Do you have trouble paying your heating and electricity bill?: No Do you have trouble taking care of your child, family member or friend?: No Do you have trouble with day-to-day activities such as bathing, preparing meals, shopping, managing finances, etc.?: No Are you currently unemployed and looking for a job?: No Are you interested in more education?: I choose not to answer this question Please select the resources that you would like help with: None Currently or been in a relationship where the following occur: No concerns reported THRIVE Score: 0 AUDIT C Alcohol Use Questionnaire (AUDIT-C) 1. How often do you have a drink containing alcohol?: 2-3 times a week 2. How many drinks containing alcohol do you have on a typical day when you are drinking?: 1 or 2 3. How often do you have six or more drinks on one occasion?: Never Total Score: 3 TJ-7 AMB Questionnaire TJ-7 Date TJ - 7 assessed: 07/27/24 Feeling nervous, anxious, or on edge: 1 = Several days Not being able to stop or control worryin = Several days Worrying too much about different things: 1 = Several days Trouble relaxin = Not at all Being so restless that it is hard to sit still: 0 = Not at all Becoming easily annoyed or irritable: 1 = Several days Feeling afraid as if something awful might happen: 0 = Not at all Total TJ-7 score (0-4 normal; 5-9 mild; 10-14 moderate; 15-21 severe): 4 Source: Developed by Drs. Navi Purcell, Georgina Michelle, Jeremiah Marsh and colleagues, with an educational kae from [employer]. Physical exam (Primary Care) Vital Signs: Last Vital Signs Pulse 73 03/07/25 11:05 BP 116/70 03/07/25 11:05 Pulse Ox 99 03/07/25 11:05 BMI result Body Mass Index 25.5 Tobacco/Smoking Status: Tobacco use Status Tobacco use date assessed 07/27/24 03/07/25 11:06 Patient Tobacco Use Status Former Tobacco user 03/07/25 11:06 Tobacco use type Cigarette 03/07/25 11:06 e-Cigarette/Vaping Use Currently Using 03/07/25 11:06 Are you ready to quit: No Tobacco cessation counseling provided: Yes Relapse Prevention: discussed the importance of a supportive environment CPT code: 73112 - 4-10 Minutes PHQ-9: PHQ-9 Score PHQ-9: Total score 6 03/07/25 20:01 Depression Screening Interpretation: Negative Thrive Assessment: Date of Thrive Assessment Date Thrive assessed 07/27/24 03/07/25 11:06 Currently or been in a relationship where the following occur: No concerns reported Coding Level of Care Code Est Pt Level 4 (05859) Diagnoses Pain of right thumb M79.644 Acute pain of right shoulder M25.511 Chronicity: acute Environmental allergies Z91.09 Recurrent major depressive disorder, in full remission F33.42 Active/Remission status: in full remission Hypertension, essential I10 Cardiomyopathy, unspecified type I42.9 Cardiomyopathy type: unspecified Other specified hypothyroidism E03.8 Additional Codes PHQ-9 - 48079 - PHQ-9 Billing: Yes ([id number]) Vital Signs *Quality* - CPT code: 25275 - 4-10 Minutes ([id number]) Assessment & Plan Assessment & Plan (1) Pain of right thumb: Code(s): M79.644 - Pain in right finger(s) Category: Medical (2) Shoulder pain, right: Code(s): M25.511 - Pain in right shoulder Category: Medical Qualifiers: Chronicity: acute Qualified Code(s): M25.511 - Pain in right shoulder (3) Environmental allergies: Code(s): Z91.09 - Other allergy status, other than to drugs and biological substances Category: Medical (4) Major depression, recurrent: Code(s): F33.9 - Major depressive disorder, recurrent, unspecified Category: Medical Qualifiers: Active/Remission status: in full remission Qualified Code(s): F33.42 - Major depressive disorder, recurrent, in full remission (5) Hypertension, essential: Code(s): I10 - Essential (primary) hypertension Category: Medical (6) Cardiomyopathy: Comment: (non-ischemic cardiomyopathy - Commercial Floor Covering Installer: Dr. James) Code(s): I42.9 - Cardiomyopathy, unspecified Category: Medical Qualifiers: Cardiomyopathy type: unspecified Qualified Code(s): I42.9 - Cardiomyopathy, unspecified (7) Other specified hypothyroidism: Code(s): E03.8 - Other specified hypothyroidism Category: Medical Plan History The patient is a 54-year-old female presenting with right thumb and right shoulder pain. Right thumb pain: - The patient reports experiencing pain in her right thumb for the past couple of months. 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 - The thumb pain has been persistent and has negatively impacted her ability to perform daily tasks at home, such as vacuuming and doing dishes, and also interfered with typing and writing at work. - The patient expresses concern about whether she should consult an stars specialist or if the issue could be managed through other means. Right shoulder pain: - The patient describes experiencing pain in her right shoulder. - The shoulder pain is speculated to be muscular in nature, possibly involving the biceps muscle. - She has full ROM in shoulder, mild discomfort anteriorly with palpation Depression : still feeling depressed , we will be increasing her wellbutrin to 300 mg continue duloxetine , both meds from PCP office Medical History: - Cardiomyopathy with history of ischemic cardiomyopathy and an ejection fraction of 45-48% - Hypertension - Hyperlipidemia - Hypothyroidism - Nicotine dependence - Osteoporosis with a last T score of -2.7 from 2022 - Pulmonary nodule Medications - Levothyroxine 100 mcg for hypothyroidism - Metoprolol for cardiovascular management - Valsartan/Sacubitril (Entresto) for cardiomyopathy - Spironolactone for cardiovascular management - Zopinex (indication not specified) - Duloxetine from this office - Bupropion 150 mg from this office - Farxiga (indication not specified) - Nasal spray from this office Social History: - 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 - She vapes and uses approximately one pod every two days. - Reports being cantu and having increased irritability, potentially related to vaping and current medication dosage. - The patient takes a multivitamin and an occasional vitamin D supplement. - The patient does not currently take any allergy medications and manages symptoms as they arise. Family History: - Sister has prediabetes. - History of diabetes in father and sister. Problem List - Right thumb tendonitis due to overuse - Right shoulder pain, possibly muscular - Ischemic Cardiomyopathy - Hypertension - Hyperlipidemia - Nicotine dependence - Hypothyroidism - Osteoporosis Diagnostic results Labs: - Last bone density in 2022 showed T score of -2.7. [facility] - The patient is seeing a construction rigger, Dr. James, for cardiomyopathy. - The patient is under the care of Dr. White for pulmonary concerns and a noted pulmonary nodule. - Boomboat Operator Dr. Radha Townsend manages hypothyroidism and vitamin D levels. - Patient sees Dr. Garza for cardiac health. - The patient is considering a referral to a hand specialist for right thumb pain. Patient Instructions - Seek consultation with a hand specialist for the right thumb pain. - Undergo physical therapy for right shoulder pain. - Consider a cortisone injection if indicated. - Follow up with construction rigger and other specialists as per usual schedule. - Increase bupropion dose to 300 mg as advised for mood management. - Monitor thumb and shoulder conditions, report any significant changes. f/u 6 M for depression , get back to me in 3 wks to update me on increase dose of wellbutrin Orders: Orders PT Evaluation and Treatment Today M25.511 - Pain in right shoulder LDL Cholesterol Direct Today E03.8 - Other specified hypothyroidism, F33.42 - Major depressive disorder, recurrent, in full remission, I10 - Essential (primary) hypertension, I42.9 - Cardiomyopathy, unspecified, M25.511 - Pain in right shoulder, M79.644 - Pain in right finger(s), Z91.09 - Other allergy status, other than to drugs and biological substances Complete Blood Count Auto Diff Today E03.8 - Other specified hypothyroidism, F33.42 - Major depressive disorder, recurrent, in full remission, I10 - Essential (primary) hypertension, I42.9 - Cardiomyopathy, unspecified, M25.511 - Pain in right shoulder, M79.644 - Pain in right finger(s), Z91.09 - Other allergy status, other than to drugs and biological substances Comprehensive Met. Panel Today E03.8 - Other specified hypothyroidism, F33.42 - Major depressive disorder, recurrent, in full remission, I10 - Essential (primary) hypertension, I42.9 - Cardiomyopathy, unspecified, M25.511 - Pain in right shoulder, M79.644 - Pain in right finger(s), Z91.09 - Other allergy status, other than to drugs and biological substances Referrals Orthopedics Referral M79.644 - Pain in right finger(s) Medications: Changed From bupropion HCl XL 150 mg PO QAM 90 tabs 0RF To bupropion HCl XL 300 mg PO QAM 90 tabs 1RF 90 days Refilled duloxetine 20 mg PO BEDTIME 90 caps 1RF fluticasone propionate 50 mcg/actuation 1 spray intranasal DAILY 16 grams 1RF
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
--- OUTSIDE RECORDS SUMMARY | 2025-03-07 13:22 | XMS_ITS | Continuity of Care Document ---
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 90tabs Radha Rush M.D. Visukxjjzbpkmd83hi Tablets Take 1 Tablet By Mouth Every Day Unknown Bupropion Hydrochloride ER (XL)150mg Tablets ER 24HR Take 1 Tablet By Mouth Every Morning [facility] Fluticasone Vybtcmhqey66gua/Act Suspension Instill 1 Orestes Nasally Once Daily [facility] Duloxetine [id number] Caps DR Part Take 1 Capsule By Mouth Everyday AT Bedtime Inocencio, [facility] Levalbuterol Uhqwqrfm37syu/Act Aerosol 2 puff inhaled every 6 hours as needed for shortness of breath or wheezing Unknown Multivitamin WomenTablets 1 by mouth every day Radha Rush M.D. Zyrtec Rbwdjqd13ub Tablets 1 by mouth every day prn [...] D deficiency has been defined by the [place] of [employer] and an Endocrine Society practice guideline as a level of serum 25-OH vitamin D less than 20 ng/mL (1,2). The Endocrine Society went on to further define vitamin D insufficiency as a level between 21 and 29 ng/mL (2). 1. IOM ([place] of Medicine). 2010. Dietary reference intakes for calcium and D. [place]: The National Academies Press. 2. [place] MF, Tamar WALKER, Goldie MAGALLANES, et al. Evaluation, treatment, and prevention of vitamin D deficiency: an Endocrine Society clinical practice guideline. JCEM. 2010; 96(7):1911-30. 2 Vitamin D deficiency has been defined by the [place] of Medicine and an Endocrine Society practice guideline as a level of serum 25-OH vitamin D less than 20 ng/mL (1,2). The Endocrine Society went on to further define vitamin D insufficiency as a level between 21 and 29 ng/mL (2). 1. IOM ([place] of Medicine). 2010. Dietary reference intakes for calcium and D. [place]: The National Academies Press. 2. [place] MF, Tamar [place], Goldie MAGALLANES, et al. Evaluation, treatment, and prevention of vitamin D deficiency: an Endocrine Society clinical practice guideline. JCEM. 2010; 96(5):1911-30. Procedures Date Code Description Status 10/19/2024 23505 Collection Of Venous Blood B y Venipuncture [...] Referral Status Appt Radha Tobin M.D. Created [address] [place] [address] [address] [place] [address] [phone] Radha Rush M.D. Created [address] [place] [address] [phone]
--- OUTSIDE RECORDS SUMMARY | 2025-03-07 13:23 | XMS_ITS | Clinical Summary ---
Author Organization [facility] Address [address] [facility] [place] [address] Phone Care Team Providers Care Jewelry Jobber Name Role Phone Patricio Painter MD Primary Care Provider [phone] Allergies Active Allergy Reactions Criticality Noted Date Comments Penicillins Hives,Unknown 05/13/2022 Sulfa (Sulfonamide Antibiotics) Unknown,Rash Sulfamethoxazole 01/18/2025 Medications cetirizine (ZyrTEC) 10 mg tablet Take [...] mouth 1 (one) time each day. Active sacubitriL-vals rahel (Entresto) 24-26 mg per tabletIndicatio ns:Unspecified systolic (congestive) heart failure (CMS/HCC V24, CMS/HCC V28) Take 0.5 tablets by mouth 2 (two) times a day. 90 each 3 01/19/20 25 026 Active metoprolol succinate (TOPROL-XL) 25 mg 24 hr tabletIndicatio ns:Chronic HFrEF (heart failure with reduced ejection fraction) (CMS/HCC V24, CMS/HCC V28) Take 1 tablet (25 mg total) by mouth 1 (one) time each day. Do not crush or chew. 90 each 3 01/19/20 25 026 Active spironolactone (ALDACTONE) 25 mg tabletIndicatio ns:Chronic HFrEF (heart failure with reduced ejection fraction) (CMS/HCC V24, CMS/HCC V28) Take 1 tablet (25 mg total) by mouth 1 (one) time each day. 30 tablet 2 01/19/20 25 Active dapagliflozin propanediol (FARXIGA) 10 mg tabletIndicatio ns:Chronic HFrEF (heart failure with reduced ejection fraction) (CMS/HCC V24, CMS/HCC V28) Take 1 tablet (10 mg total) by mouth 1 (one) time each day. 90 tablet 1 01/19/20 25 Active atorvastatin (LIPITOR) 10 mg tabletIndicatio ns:Chronic HFrEF (heart failure with reduced ejection fraction) (CMS/HCC V24, CMS/HCC V28) TAKE 1 TABLET BY MOUTH AT BEDTIME. 90 tablet 1 03/06/20 25 Active atorvastatin (LIPITOR) 10 mg tabletIndicatio ns:Chronic HFrEF (heart failure with reduced ejection fraction) (CMS/HCC V24, CMS/HCC V28) Take 1 tablet (10 mg total) by mouth at bedtime. 30 tablet 2 05/03/20 24 025 Discontinued Active Problems Problem Noted Date Diagnosed Date Chronic HFrEF (heart failure with reduced ejection fraction) (CMS/[facility] V24, CMS/HCC V28) 05/03/2024 Assessment & Plan (01/18/2025 9:51 AM EDT): The patient has heart failure with reduced ejection fraction. Etiology: Nonischemic EKG: NSR. Left bundle branch block. Last ischemic work-up: 1. Left heart catheterization done in May 2020 (normal coronary arteries). Last documented LVEF: 1. 43% on echocardiogram done in December 2023 2. 44% on cardiac MRI done in August 2020 Nonischemic cardiomyopathy evaluation: 1. Cardiac MRI in August 2020 did not show any evidence of an infiltrative cardiomyopathy. 2. Genetic testing done in May 2024 did not show any abnormalities to suggest the presence of a genetic cardiomyopathy. Current symptom classification: NYHA class 2 Guideline directed medical therapy: 1. Beta-blockers: Toprol 37.5 mg orally daily 2. ARNI / GLEN inhibitor / ARB: 0.5 tablets of Entresto 24/26 mg orally twice a day 3. MRA: Spironolactone 25 mg orally daily 4. SGL2 inhibitor: Dapagliflozin 10 mg orally daily Candidate for ICD or CUSTOMER CARE MANAGER: Not a candidate due to the LVEF Plan of care: 1. The patient has been unable to tolerate higher doses of Entresto. She is currently on half a tablet of Entresto 24/26 mg orally twice a day and is tolerating this medication well. As such, we will continue current dose of Entresto. 2. Will continue current dose of Farxiga and spironolactone 3. The patient is currently on Toprol 37.5 mg orally daily. She was previously on Toprol 25 mg orally daily but this was increased to 37.5 mg orally daily on the patient's last visit to our office. After making this adjustment in the dose of the metoprolol, the patient reported symptoms of brain fog. As such, we will decrease the metoprolol back to her usual dose of 25 mg orally daily. 4. Follow-up echocardiogram to reevaluate the patient's LVEF. Orders: metoprolol succinate (TOPROL-XL) 25 mg 24 hr tablet; Take 1 tablet (25 mg total) by mouth 1 (one) time each day. Do not crush or chew. spironolactone (ALDACTONE) 25 mg tablet; Take 1 tablet (25 mg total) by mouth 1 (one) time each day. Transthoracic echocardiogram (TTE) complete with PRN contrast, bubble, strain, and 3D order panel; Future dapagliflozin propanediol (FARXIGA) 10 mg tablet; Take 1 tablet (10 mg total) by mouth 1 (one) time each day. Comprehensive metabolic panel; Future Assessment & Plan (06/07/2024 5:22 PM EST): [...] mg orally daily Candidate for ICD or CUSTOMER CARE MANAGER: Not a candidate due to the LVEF [...] is already on GDMT. No indication for CUSTOMER CARE MANAGER at this point given her LVEF. Palpitations [...] Encounters Date Type Department Care Team Description 01/18/2025 7:50 AM EDT Office Visit [facility] [address] [facility] [address] [place] [id number] Leopoldo Mojica MD Chronic HFrEF (heart failure with reduced ejection fraction) (CMS/HCC V24, CMS/HCC V28) (Primary Dx); Unspecified systolic (congestive) heart failure (CMS/HCC V24, CMS/HCC V28) from Last 3 Months Surgical History Surgery [...] Mother hypothyroid, os teoporosis Diabetes Other grandmother; [place] , CVA, asthma Relation Name Status Comments [...] Sign Reading Time Taken Comments Blood Pressure 108/60 01/18/2025 7:50 AM EDT Pulse 78 01/18/2025 7:50 AM EDT Temperature - - Respiratory Rate - - Oxygen Saturation 98% 01/18/2025 7:50 AM EDT Inhaled Oxygen Concentration - - Weight 64.6 kg (142 lb 8 oz) 01/18/2025 7:50 AM EDT Height 160 cm (5' 3 ) 01/18/2025 7:50 AM EDT Body Mass Index 25.24 01/18/2025 7:50 AM EDT Plan of Treatment Upcoming Encounters Date Type Department Care Team (Late st Contact Info) Description 04/24/2025 8:00 AM EDT Ancillary Procedure [facility] - [address] [place] [address] Health Maintenance Due Date Last Done Comments Breast Cancer Screening 1970 Hepatitis B Vaccines (1 of 3 - 19+ 3-dose series) 1989 Cervical Cancer Screening: Pap Smear 1991 Zoster Vaccines (1 of 2) 2020 05/04/2012 Pneumococcal Vaccine: 50+ Years (2 of 2 - PCV) 07/09/2021 07/09/2020 Colorectal Cancer Screening: Colonoscopy 06/07/2022 HIV Screening 06/07/2022 Hepatitis C Screening 06/07/2022 Osteoporosis Screening (Bone Density Screening) 06/07/2022 Social Influencers of Health Screening 06/07/2022 Depression Screening 06/29/2024 COVID-19 Vaccine ( season) 2025 07/25/2021, 08/25/2020, 08/04/2020 Influenza Vaccine (#1) 2025 , 04/11/2023, 06/02/2022, Additional history exists Hypertension/CHF/CAD Annual BMP Blood [...] 4:06 AM EST Performed at: 01 - [facility] [id number] Hospitality Associate: Jeannie Haque MD, Phone: [phone] us Leopoldo Mojica MD LAB BLOOD ORDERABLES [...] AM EST Performed at: 01 - [facility] [address] [id number] Hospitality Associate: Jeannie Haque MD, Phone: [phone] Leopoldo Mojica MD LAB BLOOD ORDERABLES F inal Result [facility] 1 from Last 3 Months or Most Recently Relevant to Health Maintenance Insurance [facility] [employer] [place] [id number] Care Teams Jewelry Jobber Relationship Specialty Start Date End Date Patricio Painter MD [address] [place] [address] PCP - General Internal Medicine 11/21/21
--- OUTSIDE RECORDS SUMMARY | 2025-03-07 13:23 | XMS_ITS | Clinical Summary ---
Author Organization [facility] Address [address] [place] [address] Phone Care Team Providers Care Marine Consultant Name Role Phone Patricio Painter MD Primary Care Provider [phone] Social History Tobacco Use Types Packs/Day Years Used Date Smoking Tobacco: Never Assessed Education Answer Date Recorded Are you interested in more education? Not on rob e 10/25/2022 Are you concerned about learning? Not on file 10/25/2022 No 10/25/2022 No 10/25/2022 Digital Access Answer Date Recorded No 11/25/2022 No 11/25/2022 Reliable internet access at home? Not on file 11/25/2022 Device with a working camera? Not on file Comments Unknown Sex and Gender Information Value Date Recorded Sex Assigned at Not on file Legal Sex Female 12:01 PM EST Gender Identity Not on file Sexual Orientation Not on file Plan of Treatment Not on file Medical Devices [place] [id number] [facility] DIRECT [facility] [employer] DIRECT [facility] [employer] DIRECT [facility] DIRECT [facility] DIRECT Care Teams Marine Consultant Relationship Specialty Start Date End Date Patricio Painter MD [address] [place] [address] PCP - General Internal Medicine 06/11/22 Additional Source Comments The information contained in this document represents components of the legal health record. It is not the complete legal health record.[facility]
--- OUTSIDE RECORDS SUMMARY | 2025-03-07 13:23 | XMS_ITS | Encounter Summary ---
Author Organization [facility] Address [address] [facility] [address] [place] [address] Phone Care Team Providers Care Aircraft Accessories Mechanic Name Role Phone Unknown, Unknown Primary Care Provider Patricio Hoffmann MD Primary Care Provider [phone] Reason for Referral * MRI/CAT Scan - Closed Specialty Diagnoses / Procedures Referred By Contac t Referred To Contact Radiology Diagnoses Other nonspecific abnormal finding of lung field Procedures CT Chest CHG DIAGNOSTIC COMPUTED TOMOGRAPHY THORAX W/O CNTRST CHG DIAGNOSTIC COMPUTED TOMOGRAPHY THORAX W/CONTRAST Rufino White MD Phone: tel: Referral ID Status Reason Start Date Expiration Date Visits Re quested Visits Authorized [id number] Closed 06/04/2022 09/02/2022 1 1 Encounter Details Date Type Department Care Team (Late st Contact Info) Description 06/05/2022 Transcribe Orders Virtual Department [address] [place] [address] Rufino White MD [address] [place] [address] [place] [address] Other nonspecific abnormal finding of lung field (Primary Dx) Social History Tobacco Use Types Packs/Day Years Used Date Smoking Tobacco: Never Assessed Comments Unknown Sex and Gender Information Value Date Recorded Sex Assigned at Not on file Legal Sex Female 12:01 PM EST Gender Identity Not on file Sexual Orientation Not on file documented as of this encounter Plan of Treatment Not on file documented as of this encounter Results * CT CHEST WITHOUT CONTRAST (06/25/2022 12:50 PM EST) Anatomical Region Laterality Modality Chest Computed Tomogra phy 06/25/2022 9:18 PM EST Impressions 06/27/2022 8:15 AM EST -3 mm right lower lobe nodule, most likely benign. If there are risk factors for lung cancer (e.g. smoking history), consider optional follow-up chest CT in 12 months. If there are no risk factors for lung cancer, no further follow-up is required. -Mild T12 superior endplate compression fracture associated with Schmorl's node, age-indeterminate. Narrative 06/27/2022 8:[address] CHEST WITHOUT CONTRAST TECHNIQUE: Multidetector CT of the chest was performed without intravenous contrast using tailored dose modulation. COMPARISON: None FINDINGS: Devices/Tubes/Lines: None. Lungs: Central airways are patent. Punctate calcified right upper lobe granuloma, benign. 3 mm right lower lobe nodule (4:75). Pleura: Normal. No pleural effusion or pneumothorax. Mediastinum: Normal. No thyroid nodules. Heart and pericardium are normal. Lymph Nodes: Normal. No enlarged supraclavicular, axillary, mediastinal, or hilar lymph nodes. Upper Abdomen: Normal. No abnormality detected in the visualized upper abdomen. Absence of intravenous contrast limits sensitivity for detecting solid organ findings. Chest Wall: Normal. No chest wall mass. Bones: Mild T12 superior endplate compression fracture associated with Schmorl's node, age-indeterminate. Mild degenerative changes. No suspicious lytic or blastic lesions. Procedure Note Kwasi Molina MD - 06/27/2022 CT CHEST WITHOUT CONTRAST TECHNIQUE: Multidetector CT of the chest was performed without intravenouscontrast using tailored dose modulation. COMPARISON: None FINDINGS: Devices/Tubes/Lines: None. Lungs: Central airways are patent. Punctate calcified right upper lobegranuloma, benign. 3 mm right lower lobe nodule (4:75). Pleura: Normal. No pleural effusion or pneumothorax. Mediastinum: Normal. No thyroid nodules. Heart and pericardium arenormal. Lymph Nodes: Normal. No enlarged supraclavicular, axillary, mediastinal,or hilar lymph nodes. Upper Abdomen: Normal. No abnormality detected in the visualized upperabdomen. Absence of intravenous contrast limits sensitivity for detectingsolid organ findings. Chest Wall: Normal. No chest wall mass. Bones: Mild T12 superior endplate compression fracture associated withSchmorl's node, age-indeterminate. Mild degenerative changes. Nosuspicious lytic or blastic lesions. IMPRESSION: -3 mm right lower lobe nodule, most likely benign. If there are riskfactors for lung cancer (e.g. smoking history), consider optionalfollow-up chest CT in 12 months. If there are no risk factors for lungcancer, no further follow-up is required. -Mild T12 superior endplate compression fracture associated with Schmorl'snode, age-indeterminate. Rufino White MD IMG CT CHEST Final Result documented in this encounter Visit Diagnoses Diagnosis Other nonspecific abnormal finding of lung field- Primary Other nonspecific abnormal finding of lung field documented in this encounter Care Teams Aircraft Accessories Mechanic Relationship Specialty Start Date End Date Unknown, Unknown, MD PCP - General 06/05/22 06/10/22 Patricio Painter MD [facility] [place] [address] PCP - General Internal Medicine 06/11/22 documented as of this encounter Additional Source Comments The information contained in this document represents components of the legal health record. It is not the complete legal health record.[facility]
--- OUTSIDE RECORDS SUMMARY | 2025-03-07 13:23 | XMS_ITS | Encounter Summary ---
Author Organization [facility] Address [address] [place] [address] Phone Care Team Providers Care Integration Director Name Role Phone Unknown, Unknown Primary Care Provider Patricio Hoffmann MD Primary Care Provider [phone] Encounter Details Date Type Department Care Team (Late st Contact Info) Description 06/05/2022 Procedure Pass [facility], Ct Scan - [address] [address] Social History Tobacco Use Types Packs/Day Years [...] on filedocumented in this encounter Care Teams Integration Director Relationship Specialty Start Date End Date Unknown, Unknown, MD PCP - General 06/05/22 06/10/22 Patricio Painter MD [facility] [address] [place] [address] PCP - General Internal Medicine 06/11/22 documented as of this encounter Additional Source Comments The information contained in this document represents components of the legal health record. It is not the complete legal health record.[facility]
--- OUTSIDE RECORDS SUMMARY | 2025-03-07 13:23 | XMS_ITS | Patient Health Record ---
Author Organization [facility] Address [address] [facility] [place] [address] Care Team Providers Care Enrollment Specialist Name Role Phone Victor Manuel WINKLER, Radha Primary Care Provider Unavailable Alfredo Loaiza Unavailable [phone] Allergies Allergen (clinical drug ingredient) Drug/Non Drug [...] Status W/U Status Risk Notes Problem Bursitis (98537291) Bursitis (727.3) Active confirmed Problem Metatarsalgia (25475384) Metatarsalgia (726.70) Active confirmed Problem Pain in limb (05326154) Pain in Limb (729.5) Active confirmed Plan Of Treatment No Information Insurance Providers Payer Name Payer Address Payer Phone Subscriber Number Group Number Insured Name Patient Relationship to Insured Coverage Start Date Coverage End Date [employer] [address] [place] [address] [id number] Domitila Villafuerte Self - patient is the insured Medical (General) History Medical History History ICD Code Anxiety disorder thyroid disorder chicken pox Surgical History Surgery Date(Month/Year) section 2006
== END 2025-03-07 11:41 | disposition home or self-care (01) ==
LOC: HO.HMCC 11:03
PROVIDERS: PCP Internal Medicine; Visit Provider Internal Medicine
DX: M79.644 Pain in right finger(s) (principal); I42.9 Cardiomyopathy, unspecified; M25.511 Pain in right shoulder; Z91.09 Other allergy status, other than to drugs and biological substances; F33.42 Major depressive disorder, recurrent, in full remission; I10 Essential (primary) hypertension; E03.8 Other specified hypothyroidism

== ENCOUNTER 2025-03-10 11:02 | Outpatient (AMB) | payer OTHER, SELFPAY ==
--- OUTSIDE RECORDS SUMMARY | 2024-02-09 12:00 | XMS_ITS ---
Author Organization [facility] Address [address] [address] Care Team Providers Care Special Makeup Fx Artist Instructor Name Role Phone Patricio Painter Primary Care Provider DIONICIO Faust Unavailable [phone] REASON FOR VISIT Rt foot shockwave session #3 Encounters Encounter Location Date Provider Diagnosis [facility] [address] [address] 02/09/2024 DIONICIO BOLAND Plan Of Treatment No [...] Electronic signature of DEBORAH BOLAND D.P.M. on 03/10/2025 at 12:53 PM EDT Sign off status: Pending * Provider: Tawnya Chandler DPM Date: 0 02/09/2024 Generated for Concepcioni celena/Joselin/eTransmitting on: 03/10/2025 12:53 PM EDT
--- NOTE | 2025-03-10 08:38 | MHC.OFFVIS ---
Intake Visit Reasons: Current Smoker Allergies penicillin V Allergy (Mild, Verified 03/07/25 11:09) hives Sulfa (Sulfonamide Antibiotics) Allergy (Mild, Verified 03/07/25 11:09) hives HPI HPI Current Smoker: Details: Initial visit for this 54yo smoker with a 20+PYH. Patient started smoking at age 20 for 34 years at 1/2-3/4ppd. Mainly vaping now with a few cigarettes. . Denies marijuana use. Denies second hand smoke exposure. Denies exposure to chemicals or substances like asbestos. . Denies known family history of lung cancer. Denies personal history of cancers. Denies chest CT in last year. 05/20/[address] [facility] noted small nodules stable since 2019 . Denies recent travel outside the [place]. Denies recent respiratory illness or recent hospitalization for respiratory issues. History of testing positive for COVID. Admits receiving COVID Vaccine. . Denies fever, chills, new/worsening cough, hemoptysis, hoarseness or dysphagia. Denies significant chest pain, significant dyspnea or unintentional weight loss. Patient Lung Cancer Screening Questionnaire reviewed with patient by provider. . Shared Decision Making Completed. Patient meets criteria. Discussed in detail with patient, the risk vs benefit of LDCT screening. Patient consents to proceed with scan. Discussed smoking cessation. [facility] Medical History (Updated 03/10/25 @ 11:35 by Fatuma Young PA-C) Cardiomyopathy HFrEF (heart failure with reduced ejection fraction) Left bundle branch block Hypertension, essential Hyperlipidemia Sleep apnea Pneumothorax, closed, traumatic Pulmonary nodule Vaping nicotine dependence, tobacco product Personal history of nicotine dependence History of COVID-19 Hypothyroid History of Graves' disease Osteoporosis H/O compression fracture of spine Back pain Anxiety Depression Surgical History History of cardiac catheterization History of colonoscopy Family History Father Hypertension COPD (chronic obstructive pulmonary disease) Mother Hypertension Hypothyroid Social History (Updated 03/10/25 @ 11:35 by Fatuma Young PA-C) Housing: House Patient Tobacco Use Status: Current someday Tobacco user Tobacco use type: Cigarette Years Smoked: (onset 20yo, 1/2-3/4ppd x 34yrs, now vaping, occasional cigarette, 20+PYH) e-Cigarette/Vaping Use: Currently Using service: No Current occupational status: employed Cognitive needs: No Hearing needs: No Vision needs: Yes Assessment & Plan Assessment & Plan (1) Personal history of nicotine dependence: Comment: (onset 20yo, 1/2-3/4ppd x 34yrs, now vaping, 20+PYH) Code(s): Z87.891 - Personal history of nicotine dependence Category: Medical Plan: - SDM visit completed today in office. - Patient meets criteria for LDCT for lung cancer screening purposes and is asymptomatic. - Smoking cessation counseling offered. Patients can always call [phone]. - Will arrange for a LDCT scan of the chest for screening purposes at [facility]. - Risks, benefits, and alternatives were discussed in detail and the patient agrees to proceed. - Risks discussed include but are not limited to: radiation exposure, anxiety during testing and while awaiting results, false negatives, false positives and possibility of additional intervention such as further imaging or surgical procedures for benign disease. - Benefits are obviously detection of lung cancer at an early stage which can lead to improved outcomes. - Discussed the importance of screening program compliance with adherence to yearly LDCT scan as scheduled - or sooner interval scans for personalized screening regimen. - Discussed follow up plan. Our office will send a letter discussing results and if needed set up phone call and office visit based on CT findings. - Patient educated on results categorization and the management decisions for suspicious findings potentially found on the screening LDCT scan. Any patient with a Lung RADS score of 3 or 4 will be reviewed by a multidisciplinary team at [facility] to form a plan of action in regards to scan findings. - If further work up is warranted for a suspicious lung finding this will be followed by the Lung Cancer Screening program in conjunction with the Thoracic Surgery Department at [facility]. - A copy of the office note and LDCT will be sent to the patient's PCP - as well as documentation on any associated further plans of care. - Incidental findings on LDCT are the PCP's responsibility. These findings are indicated with an S finding on the LDCT Assessment. A note discussing the findings will be sent to the PCP who is then responsible for further management. - All questions answered.? Coding Level of Care Code Lung Cancer Screening G0296 Diagnoses Personal history of nicotine dependence Z87.891
--- OUTSIDE RECORDS SUMMARY | 2025-03-10 12:53 | XMS_ITS | Clinical Summary ---
Author Organization [facility] Address [address] [facility] [place] [address] Phone Care Team Providers Care Journeyman Mechanic Name Role Phone Patricio Painter MD Primary Care Provider [phone] Allergies Active Allergy Reactions Criticality Noted Date [...] HFrEF (heart failure with reduced ejection fraction) (CMS/[facility] V24, CMS/HCC V28) 05/03/2024 Assessment & Plan [...] mg orally daily Candidate for ICD or REGISTERED HEALTH NURSE: Not a candidate due to the LVEF [...] mg orally daily Candidate for ICD or REGISTERED HEALTH NURSE: Not a candidate due to the LVEF [...] is already on GDMT. No indication for REGISTERED HEALTH NURSE at this point given her LVEF. Palpitations [...] Description 01/18/2025 7:50 AM EDT Office Visit [facility] [address] [facility] [address] [place] [phone] Leopoldo Mojica MD Chronic HFrEF (heart failure [...] Mother hypothyroid, os teoporosis Diabetes Other grandmother; [place] , CVA, asthma Relation Name Status Comments [...] Description 04/24/2025 8:00 AM EDT Ancillary Procedure [facility] - [address] [place] [address] Health Maintenance Due Date Last [...] 4:06 AM EST Performed at: 01 - [facility] [id number] Overhead Distribution Engineer: Jeannie Haque MD, Phone: [phone] us Leopoldo Mojica MD LAB BLOOD ORDERABLES [...] AM EST Performed at: 01 - [facility] [address] [id number] Overhead Distribution Engineer: Jeannie Haque MD, Phone: [phone] Leopoldo Mojica MD LAB BLOOD ORDERABLES F inal Result [facility] 1 from Last 3 Months or Most Recently Relevant to Health Maintenance Insurance [facility] PUBLIC PLANS [place] [id number] Care Teams Journeyman Mechanic Relationship Specialty Start Date End Date Patricio Painter MD [address] [place] [address] PCP - General Internal Medicine 11/21/21
--- OUTSIDE RECORDS SUMMARY | 2025-03-10 12:53 | XMS_ITS | Encounter Summary ---
Author Organization [facility] Address [address] [facility] [address] [place] [address] Phone Care Team Providers Care Kst Operator Name Role Phone Unknown, Unknown Primary Care Provider Patricio Hoffmann MD Primary Care Provider [phone] Reason for Referral * MRI/CAT Scan - Closed Specialty Diagnoses / Procedures Referred By Contac t Referred To Contact Radiology Diagnoses Other nonspecific abnormal finding of lung field Procedures CT Chest CHG DIAGNOSTIC COMPUTED TOMOGRAPHY THORAX W/O CNTRST CHG DIAGNOSTIC COMPUTED TOMOGRAPHY THORAX W/CONTRAST Rufino White MD Phone: tel: Referral ID Status Reason Start Date Expiration Date Visits Re quested Visits Authorized [id number] Closed 06/04/2022 09/02/2022 1 1 Encounter Details Date Type Department Care Team (Late st Contact Info) Description 06/05/2022 Transcribe Orders Virtual Department [address] [place] [address] Rufino White MD [address] [place] [address] [place] [address] Other nonspecific abnormal finding of lung field [...] field documented in this encounter Care Teams Kst Operator Relationship Specialty Start Date End Date Unknown, Unknown, MD PCP - General 06/05/22 06/10/22 Patricio Painter MD [facility] [place] [address] PCP - General Internal Medicine 06/11/22 documented as of this encounter Additional Source Comments The information contained in this document represents components of the legal health record. It is not the complete legal health record.[facility]
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
--- OUTSIDE RECORDS SUMMARY | 2025-03-10 12:53 | XMS_ITS | Clinical Summary ---
Author Organization [facility] Address [address] [place] [address] Phone Care Team Providers Care Clerk To Justice Name Role Phone Patricio Painter MD Primary Care Provider [phone] Social History Tobacco Use Types Packs/Day Years [...] [place] [address] [facility] DIRECT [facility] DIRECT Care Teams Clerk To Justice Relationship Specialty Start Date End Date Patricio Painter MD [address] [facility] [place] [address] PCP - General Internal Medicine 06/11/22 Additional Source Comments The information contained in this document represents components of the legal health record. It is not the complete legal health record.[facility]
--- OUTSIDE RECORDS SUMMARY | 2025-03-10 12:53 | XMS_ITS | Continuity of Care Document ---
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 90tabs Radha Rush M.D. Ybnslnfcjhmwsj61hv Tablets Take 1 Tablet By Mouth Every Day Unknown Bupropion Hydrochloride ER (XL)150mg Tablets ER 24HR Take 1 Tablet By Mouth Every Morning [facility], [facility] Fluticasone Zkldnlleaz11djw/Act Suspension Instill 1 Heaters Nasally Once Daily [facility], [facility] Duloxetine MBV93rz Caps DR Part Take 1 Capsule By Mouth Everyday AT Bedtime Inocencio, [facility] Levalbuterol Jutcmioi32woo/Act Aerosol 2 puff inhaled every 6 hours as needed for shortness of breath or wheezing Unknown Multivitamin WomenTablets 1 by mouth every day Radha Rush M.D. Zyrtec Tivkcvb50bu Tablets 1 by mouth every day prn [...] D deficiency has been defined by the [place] of Medicine and an Endocrine Society practice guideline as a level of serum 25-OH vitamin D less than 20 ng/mL (1,2). The Endocrine Society went on to further define vitamin D insufficiency as a level between 21 and 29 ng/mL (2). 1. IOM ([place] of Medicine). 2010. Dietary reference intakes for calcium and D. [place]: The National Academies Press. 2. [place] MF, Tamar WALKER, Goldie MAGALLANES, et al. Evaluation, treatment, and prevention of vitamin D deficiency: an Endocrine Society clinical practice guideline. JCEM. 2010; 96(7):1911-30. 2 Vitamin D deficiency has been defined by the [place] of Medicine and an Endocrine Society practice guideline as a level of serum 25-OH vitamin D less than 20 ng/mL (1,2). The Endocrine Society went on to further define vitamin D insufficiency as a level between 21 and 29 ng/mL (2). 1. IOM ([place] of Medicine). 2010. Dietary reference intakes for calcium and D. [place]: The National Academies Press. 2. [place] MF, Tamar [place], Goldie MAGALLANES, et al. Evaluation, treatment, and prevention of vitamin D deficiency: an Endocrine Society clinical practice guideline. JCEM. 2010; 96(2):1911-30. Procedures Date Code Description Status 10/19/2024 58739 Collection Of Venous Blood B y Venipuncture [...] Referral Status Appt Radha Tobin M.D. Created [address] [place] [address] [address] [place] [address] [phone] Radha Rush M.D. Created [address] [place] [address] [phone]
--- OUTSIDE RECORDS SUMMARY | 2025-03-10 12:53 | XMS_ITS | Encounter Summary ---
Author Organization [facility] Address [address] [place] [address] Phone Care Team Providers Care Roller Painter Name Role Phone Unknown, Unknown Primary Care Provider Patricio Hoffmann MD Primary Care Provider [phone] Encounter Details Date Type Department Care Team (Late st Contact Info) Description 06/05/2022 Procedure [facility], Ct Scan - [address] [address] Social History Tobacco Use Types Packs/Day Years [...] on filedocumented in this encounter Care Teams Roller Painter Relationship Specialty Start Date End Date Unknown, Unknown, MD PCP - General 06/05/22 06/10/22 Patricio Painter MD [facility] [address] [place] [address] PCP - General Internal Medicine 06/11/22 documented as of this encounter Additional Source Comments The information contained in this document represents components of the legal health record. It is not the complete legal health record.[facility]
--- OUTSIDE RECORDS SUMMARY | 2025-03-10 12:53 | XMS_ITS | Patient Health Record ---
Author Organization [facility] Address [address] [facility] [place] [address] Care Team Providers Care Revenue Director Name Role Phone Victor Manuel WINKLER, Radha Primary Care Provider Unavailable Alfredo Loaiza Unavailable [phone] Allergies Allergen (clinical drug ingredient) Drug/Non Drug [...] Status W/U Status Risk Notes Problem Bursitis (46059874) Bursitis (727.3) Active confirmed Problem Metatarsalgia (32605574) Metatarsalgia (726.70) Active confirmed Problem Pain in limb (41742684) Pain in Limb (729.5) Active confirmed Plan Of Treatment No Information Insurance Providers Payer Name Payer Address Payer Phone Subscriber Number Group Number Insured Name Patient Relationship to Insured Coverage Start Date Coverage End Date [employer] [address] [place] [address] [phone] [id number] Domitila Villafuerte Self - patient is the insured Medical (General) History Medical History History ICD Code Anxiety disorder thyroid disorder chicken pox Surgical History Surgery Date(Month/Year) section 2006
== END 2025-03-10 13:24 | disposition home or self-care (01) ==
LOC: HO.HPS 11:03
PROVIDERS: PCP Internal Medicine; Referring Provider Hospitalist; Visit Provider Physician Assistant Medical
DX: Z87.891 Personal history of nicotine dependence (principal)
CPT/HCPCS: G0296

== ENCOUNTER 2025-03-10 11:35 | Outpatient (REF) | payer OTHER, SELFPAY ==
--- NOTE | ~2025-03-10 | CT_ITS ---
CLINICAL HISTORY: Z87.891 - Personal history of nicotine dependence CT lung cancer screening (LDCT) Comparison: None provided Technique: Axial CT images of the chest using low-dose technique. Referring provider counseled the patient on shared decision-making for LDCT screening. Additional counseling was provided on smoking cessation. Effective radiation dose total: DLP 33.5 mGycm, CTDIvol 1 mGy. Findings: Lung: No evidence of pneumonia or edema. 3 mm nodule within the right lower lobe anteriorly ( image 69). 4 mm subpleural nodule within the right upper lobe posteromedially ( image 27). Coronary artery calcifications: No calcification Limited upper abdomen: Unremarkable Other: None IMPRESSION: LungRADS 2 - Benign Appearance: Continue annual screening with low dose Chest CT in 12 months. ##L2## This document has been electronically signed by: Radha Phan MD on 03/10/2025 17:01:01
== END 2025-03-10 11:36 | disposition home or self-care (01) ==
LOC: HO.CT 11:35
PROVIDERS: PCP Internal Medicine; Visit Provider Physician Assistant Medical
DX: Z12.2 Encounter for screening for malignant neoplasm of respiratory organs (principal); Z87.891 Personal history of nicotine dependence
CPT/HCPCS: 71271; G0296

== ENCOUNTER → 2025-03-10 11:38 | Outpatient (BNV) | payer OTHER, SELFPAY | PROVIDERS: PCP Internal Medicine; Visit Provider Radiology Diagnostic Radiology | DX: Z87.891 Personal history of nicotine dependence (principal) | CPT/HCPCS: 71271 ==

== ENCOUNTER 2025-05-10 14:12 | Outpatient (REF) | payer OTHER, SELFPAY ==
--- OUTSIDE RECORDS SUMMARY | 2024-02-09 11:00 | XMS_ITS ---
Author Organization [facility] Address [address] [address] Care Team Providers Care Restaurant Delivery Driver Name Role Phone Patricio Painter Primary Care Provider DIONICIO Faust Unavailable [phone] REASON FOR VISIT Rt foot shockwave session #3 Encounters Encounter Location Date Provider Diagnosis [facility] [address] [address] 02/09/2024 DIONICIO BOLAND Plan Of Treatment No Information Progress Notes * Domitila MARSHDOB:[birth year] (54 yo F)Acc No.[id number]:02/09/2024 Patient: Domitila ROGERS Provider: Tawnya Chandler DPM :1970 A ge:53 Y S ex:Female Date:02/09/2024 Address:[id number] Pcp:Patricio Painter Subjective: * Chief Complaints: * 1 . Rt foot shockwave session #3. * Medical History: Objective: * Vitals: Assessment: Plan: * Treatment: * Billing Information: * Visit Code: * Procedure Codes: * Electronic signature of Randy FARRELLPClovis on 05/10/2025 at 05:27 PM EST Sign off status: Pending * Provider: Tawnya Chandler DPM Date: 0 02/09/2024 Generated for Concepcioni celnea/Joselin/eTransmitting on: 1 07/10/2024 05:27 PM EST
--- NOTE | 2025-05-10 14:16 | EMG_ITS ---
Chief complaint: Right hand pain Reason for referral: Evaluate for Carpal Tunnel Syndrome Referred by: Timoteo RING Procedure done: Right upper extremity NCS/EMG Precautions and/or limitations: None The limb temperature was monitored continuously and remained between 32-36 degrees C during the performance of the NCS. Nerve Conduction Studies Anti Sensory Summary Table ?Stim Site NR Onset (ms) Norm Onset (ms) Peak (ms) Norm Peak (ms) O-P Amp (?V) Norm O-P Amp Site1 Site2 Delta-0 (ms) Dist (cm) Ajay (m/s) Norm Ajay (m/s) Right Median Anti Sensory (2nd Digit) Wrist ? 2.7 3.6 <3.6 26.5 >10 Wrist 2nd Digit 2.7 14.0 52 Right Ulnar Anti Sensory (5th Digit) Wrist ? 2.8 3.7 <3.7 38.4 >15.0 Wrist 5th Digit 2.8 14.0 50 Motor Summary Table ?Stim Site NR Onset (ms) Norm Onset (ms) O-P Amp (mV) Norm O-P Amp iAmp (mV) Amp (1st) (%) Site1 Site2 Delta-0 (ms) Dist (cm) Ajay (m/s) Norm Ajay (m/s) Right Median Motor (Abd Poll Brev) Wrist ? 2.9 <3.9 12.2 >4.5 16.1 100.0 Elbow Wrist 4.1 20.0 49 >45 Elbow ? 7.0 12.1 15.8 99.2 Right Ulnar Motor (Abd Dig Minimi) Wrist ? 2.7 <3.0 9.7 >5 11.5 100.0 B Elbow Wrist 3.0 17.0 57 >45 B Elbow ? 5.7 8.9 10.8 91.8 A Elbow B Elbow 1.6 10.0 63 >45 A Elbow ? 7.3 8.7 10.8 89.7 Comparison Summary Table ?Stim Site NR Peak (ms) Norm Peak (ms) P-T Amp (?V) Site1 Site2 Delta-P (ms) Norm Delta (ms) Right Median/Radial Dig I Comparison (Digit 1 - 10cm) Median ? 2.7 <2.9 114.3 Median Radial 0.1 Radial ? 2.8 <2.8 39.9 EMG ?Side Muscle Nerve Root Ins Act Fibs Psw Amp Dur Poly Recrt Int Pat Comment Right 1stDorInt Ulnar C8-T1 Nml Nml Nml Nml Nml 0 Nml Complete Right FlexCarRad Median C6-7 Nml Nml Nml Nml Nml 0 Nml Complete Right Biceps Musculocut C5-6 Nml Nml Nml Nml Nml 0 Nml Complete Right Triceps Radial C6-7-8 Nml Nml Nml Nml Nml 0 Nml Complete Right Deltoid Axillary C5-6 Nml Nml Nml Nml Nml 0 Nml Complete FINDINGS: All motor and sensory nerves tested showed normal latencies, amplitudes and conduction velocities. Concentric needle EMG was performed in selected muscles of the right upper extremity. Study did not reveal signs of electric abnormalities as shown in the table above. IMPRESSION: 1. This is an abnormal study. 2. There is electrodiagnostic evidence for median neuropathy at the wrist, consistent with carpal tunnel syndrome. 3. There is no electrodiagnostic evidence for ulnar neuropathy, brachial plexopathy, or cervical radiculopathy. Thank you for your kind referral. Luh Guevara MD, FIDELIA Board Certified, [place] Board of Physical Medicine and Rehabilitation (ABPMR) Board Certified, [place] Board of Electrodiagnostic Medicine (ABEM) CODIN 89973 x 1 extremity MTDD
--- OUTSIDE RECORDS SUMMARY | 2025-05-10 17:27 | XMS_ITS | Data Portability ---
Author Organization [facility] Address [address] [place] [address] Assessment Encounter Date Assessment Date Assessment LastModified [...] [address], [address], [facility] [address], [place], [address], 4 14:04:13 Medication Orders None recorded. Patient [...] a4ajBk vP9nXo QUaueC m3YtLR FvZlgJ JJ8mAn HZtai3 1o6390 AC0KpY nyFVar eUC8mr 84%3D INTERFACE [facility] [address], [place], [address], 01/14/2024 08:37:25 01/14/20 24 01/14/2024 XR, lumba r spine , 2 view http:/ [email or web address] ?Encry pted=s hAaTro YD8dLq bEUv6g %2BXZw aYqtaq 0bqfl% 2Fg9IQ a4ajBk vP9nXo QUaueC m3YtLR FvZlgJ JJ8mAn HZtai3 9a4227 AC0KpY nyFVar eUC8mr 84%3D INTERFACE [facility] [address], [place], [address], 01/14/2024 08:37:26 Result Notes Documentation Provider Name and Address Organization Details Recorded Time Xr, Lumbar Spine, 2 View : [email or web address]? Encrypted=yeIhGhdMN2iZrxE Uv6g%9MLXkbMhaak1isup%2Fg 3FLc4xsYkgY0aHiQAzvlKf0Fw PZQxMacTZQ1lUwFOkha69w994 7IL4EsOrmMQnvyMQ1zn89%3D Not Available [facility] 01/14/2024 08:3 7:25 Xr, Lumbar Spine, 2 View : [email or web address]? Encrypted=qaCfNzgLO3cIjiA Uv6g%7GEWloAjclo6qcsx%2Fg 0ZZn5neXghD3zYpFArexJk3Bv MYBuQldODW6bIjZIuhu55b417 9AV8PyQyeVZebbDC7lp43%3D Not Available [facility] 01/14/2024 08:3 7:27 Medical Equipment None Reported. Allergies Allergen ID Allergen Name Allergen Category Reaction Reaction Severity Criticality Documentation Date Start Date Code Code System Note Provider Name and Address Organization Details Recorded Time 07405 Substance with sulfonami de structure and antibacte rial mechanism of action (substanc e) medicatio n Not available Not available Not available 08/31/20232021 90380 8003 SNOMED Not Available [facility] 14:33:47 59747 Product containin g penicilli n (product) medicatio n Not available Not available Not available 08/31/20232021 51378 8001 SNOMED Not Available [facility] 14:33:47 Medications Name Sig Start Date Stop [...] Diagnosis SNOMED-CT Code Diagnosis ICD10 Code Diagnosis IMO Codes Diagnosis Note [id number] Navi Coe MD [place] [address] [place] [address] 01/14/2024 08:17:39 02/10/2024 14:04:12 Low back pain 440055264 M54.50 Health Concerns Section Related Observation LastModified by Organization Detai ls LastModified Time None Recorded Concern Status LastModified by Organization Details LastModified Time None Recorded Advance Directives Directive None Recorded Payers Insurance Date Sequence Insurance Name Policy Number Policy William Covered Member ID William Member ID Guarantor Name 03/08/2024 1 [facility] Domitila Zaragoza [id number] Domitila Zaragoza Notes Date Note Type [...] therapy along with medication management. Injections at [facility] provided only short-term relief. MEDICATIONS: Dxwi-ojh-pqrqeed products WORK STATUS: Secretarylumbar spine MRI reviewed. Study notable for degenerative disc findings fairly severe with associated collapse and neuroforaminal stenosis all isolated to the L5-S1 level. X-RAY REPORT: X-rays ordered, obtained and reviewed at [facility]. Not indicated Navi Coe MD [address], [place], [address], [facility] 01/14/2024 11:35:36 OBGyn Episode No OBEpisode recorded.
--- OUTSIDE RECORDS SUMMARY | 2025-05-10 17:27 | XMS_ITS | Clinical Summary ---
Author Organization [facility] Address [address] [place] [address] Phone Care Team Providers Care Development Chemist Name Role Phone Patricio Painter MD Primary Care Provider [phone] Social History Tobacco Use Types Packs/Day Years [...] [place] [address] [facility] DIRECT [facility] CONNE[facility]CARE DIRECT [facility] DIRECT [facility] Care Teams Development Chemist Relationship Specialty Start Date End Date Patricio Painter MD [address] [place] [address] PCP - General Internal Medicine 06/11/22 Additional Source Comments The information contained in this document represents components of the legal health record. It is not the complete legal health record.[facility]
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
--- OUTSIDE RECORDS SUMMARY | 2025-05-10 17:28 | XMS_ITS | Encounter Summary ---
Author Organization [facility] Address [address] [facility] [address] [place] [address] Phone Care Team Providers Care Hooker Machine Tender Name Role Phone Unknown, Unknown Primary Care Provider Patricio Hoffmann MD Primary Care Provider [phone] Reason for Referral * MRI/CAT Scan - Closed Specialty Diagnoses / Procedures Referred By Contac t Referred To Contact Radiology Diagnoses Other nonspecific abnormal finding of lung field Procedures CT Chest CHG DIAGNOSTIC COMPUTED TOMOGRAPHY THORAX W/O CNTRST CHG DIAGNOSTIC COMPUTED TOMOGRAPHY THORAX W/CONTRAST Rufino White MD Phone: tel: Referral ID Status Reason Start Date Expiration Date Visits Re quested Visits Authorized [id number] Closed 06/04/2022 09/02/2022 1 1 Encounter Details Date Type Department Care Team (Late st Contact Info) Description 06/05/2022 Transcribe Orders Virtual Department [address] [place] [address] Rufino White MD [address] [place] [address] [place] [address] Other nonspecific abnormal finding of lung field [...] field documented in this encounter Care Teams Hooker Machine Tender Relationship Specialty Start Date End Date Unknown, Unknown, MD PCP - General 06/05/22 06/10/22 Patricio Painter MD [facility] [place] [address] PCP - General Internal Medicine 06/11/22 documented as of this encounter Additional Source Comments The information contained in this document represents components of the legal health record. It is not the complete legal health record.[facility]
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
--- OUTSIDE RECORDS SUMMARY | 2025-05-10 17:28 | XMS_ITS | Clinical Summary ---
Author Organization [facility] [employer] [facility] Address [address] [place] [address] Phone Care Team Providers Care Hadoop Administrator Name Role Phone Patricio Painter MD Primary Care Provider [phone] Allergies Active Allergy Reactions Criticality Noted Date [...] mouth 1 (one) time each day. Active sacubitriL-valsa rtan (Entresto) 24-26 mg per tabletIndication s:Unspecified systolic (congestive) heart failure (CMS/HCC V24, CMS/HCC V28) Take 0.5 tablets by mouth 2 (two) times a day. 90 each 3 5 01/19/20 26 Active metoprolol succinate (TOPROL-XL) 25 mg 24 hr tabletIndication s:Chronic HFrEF (heart failure with reduced ejection fraction) (CMS/HCC V24, CMS/HCC V28) Take 1 tablet (25 mg total) by mouth 1 (one) time each day. Do not crush or chew. 90 each 3 5 01/19/20 26 Active spironolactone (ALDACTONE) 25 mg tabletIndication s:Chronic HFrEF (heart failure with reduced ejection fraction) (CMS/HCC V24, CMS/HCC V28) Take 1 tablet (25 mg total) by mouth 1 (one) time each day. 30 tablet 2 5 Active dapagliflozin propanediol (FARXIGA) 10 mg tabletIndication s:Chronic HFrEF (heart failure with reduced ejection fraction) (CMS/HCC V24, CMS/HCC V28) Take 1 tablet (10 mg total) by mouth 1 (one) time each day. 90 tablet 1 5 Active atorvastatin (LIPITOR) 10 mg tabletIndication s:Chronic HFrEF (heart failure with reduced ejection fraction) (CMS/HCC V24, CMS/HCC V28) TAKE 1 TABLET BY MOUTH AT BEDTIME. 90 tablet 1 5 Active Active Problems [...] mg orally daily Candidate for ICD or GARNETT FEEDER: Not a candidate due to the LVEF [...] mg orally daily Candidate for ICD or GARNETT FEEDER: Not a candidate due to the LVEF [...] is already on GDMT. No indication for GARNETT FEEDER at this point given her LVEF. Palpitations [...] Encounters Date Type Department Care Team Description 04/25/2025 Telephone [facility] Cardiology [facility] [address] [place] [phone] Leopoldo Mojica MD 04/24/2025 8:00 AM EDT Ancillary Procedure [facility] Cardiology [facility] [address] [place] [address] Chronic HFrEF (heart failure with reduced ejection fraction) (CMS/HCC V24, CMS/HCC V28) 03/13/2025 Telephone [facility] [address] [place] [phone] Leopoldo Mojica MD from Last 3 Months Surgical History Surgery [...] Years Used Date Smoking Tobacco: Former Cigarettes 0 Q uit: 06/29/1999 Smokeless Tobacco: Former Tobacco [...] Sign Reading Time Taken Comments Blood Pressure 110/70 04/24/2025 8:52 AM EDT Pulse 78 01/18/2025 7:50 AM EDT Temperature - - Respiratory Rate - - Oxygen Saturation 98% 01/18/2025 7:50 AM EDT Inhaled Oxygen Concentration - - Weight 66.2 kg (146 lb) 04/24/2025 8:52 AM EDT Height 160 cm (5' 3 ) 04/24/2025 8:52 AM EDT Body Mass Index 25.86 04/24/2025 8:52 AM EDT Plan of Treatment Upcoming Encounters Date Type Department Care Team (Late st Contact Info) Description 07/21/2025 7:40 AM EST Office Visit [facility] [address] [place] [phone] Lindsay Carrillo NP [address] [place] [address] [place] [phone] Health Maintenance Due Date Last Done Comments Breast Cancer Screening 1970 Colorectal Cancer Screening: Colonoscopy 1970 Hepatitis B Vaccines (1 of 3 - 19+ 3-dose series) 1989 Cervical Cancer Screening: Pap Smear 1991 RSV Immunization Adult Patients (1 - Risk 50-74 years 1-dose series) 2020 Zoster Vaccines (1 of 2) 2020 05/04/2012 Pneumococcal Vaccine: 50+ Years (2 of 2 - PCV) 07/09/2021 07/09/2020 HIV Screening 06/07/2022 Hepatitis C Screening 06/07/2022 [...] - 06/14/2024 4:06 AM EST Performed at: [facility] [id number] Hand Carver: Jeannie Haque MD, Phone: [phone] us Leopoldo Mojica MD LAB BLOOD ORDERABLES [...] AM EST Performed at: 01 - [facility] [address] [id number] Hand Carver: Jeannie Haque MD, Phone: [phone] Leopoldo Mojica MD LAB BLOOD ORDERABLES F inal Result [facility] 1 from Last 3 Months or Most Recently Relevant to Health Maintenance Insurance [facility] [employer] Care Teams Hadoop Administrator Relationship Specialty Start Date End Date Patricio Painter MD [address] [place] [address] PCP - General Internal Medicine 11/21/21
--- OUTSIDE RECORDS SUMMARY | 2025-05-10 17:28 | XMS_ITS | Encounter Summary ---
Author Organization [facility] Address [address] [place] [phone] Phone Care Team Providers Care Ethanol Quality Leader Name Role Phone Unknown, Unknown Primary Care Provider Patricio Hoffmann MD Primary Care Provider [phone] Encounter Details Date Type Department Care Team (Late st Contact Info) Description 06/05/2022 Procedure [facility] [place] Scan - [address] [phone] Social History Tobacco Use Types Packs/Day Years [...] on filedocumented in this encounter Care Teams Ethanol Quality Leader Relationship Specialty Start Date End Date Unknown, Unknown, MD PCP - General 06/05/22 06/10/22 Patricio Painter MD [facility] [address] [place] [id number] PCP - General Internal Medicine 06/11/22 documented as of this encounter Additional Source Comments The information contained in this document represents components of the legal health record. It is not the complete legal health record.[facility]
== END 2025-05-10 14:13 | disposition home or self-care (01) ==
LOC: HO.NEURO 14:12
PROVIDERS: PCP Internal Medicine
DX: R20.0 Anesthesia of skin (principal); R20.2 Paresthesia of skin; M79.641 Pain in right hand
CPT/HCPCS: 95886; 95909

== ENCOUNTER → 2025-05-10 14:16 | Outpatient (BNV) | payer OTHER, SELFPAY | PROVIDERS: PCP Internal Medicine; Visit Provider Physical Medicine & Rehabilitation | DX: G56.01 Carpal tunnel syndrome, right upper limb (principal) | CPT/HCPCS: 95886; 95909 ==

== ENCOUNTER 2025-06-02 08:31 | Outpatient (REF) | payer OTHER, SELFPAY ==
--- NOTE | ~2025-06-02 | XR_ITS ---
EXAMINATION: XR HAND, RIGHT CLINICAL INFORMATION: M79.641 - Pain in right hand COMPARISON: None available. TECHNIQUE: PA, lateral, and oblique views of the right hand. FINDINGS: There is slight dorsal subluxation of the distal ulna at the radial ulnar joint on the lateral view. Distal radial ulnar joint alignment appears normal on the other 2 views and this may be due to patient positioning on the lateral view. Bone alignment is otherwise normal. No fracture or dislocation. Normal joint spaces. Normal soft tissues. XR/XR hand RT min 3V IMPRESSION: Question slight dorsal subluxation of the distal ulna at the radial ulnar joint on the lateral view versus patient positioning. Otherwise unremarkable exam. Electronically signed by: Lor Jha MD 06/02/2025 09:23 AM ERIC
== END 2025-06-02 08:32 | disposition home or self-care (01) ==
LOC: HO.HOSX 08:31
PROVIDERS: PCP Internal Medicine
DX: M77.8 Other enthesopathies, not elsewhere classified (principal); G56.01 Carpal tunnel syndrome, right upper limb
CPT/HCPCS: 73130; 99212

== ENCOUNTER 2025-06-02 08:31 | Outpatient (AMB) | payer OTHER, SELFPAY ==
[2025-06-02 08:37] VITALS: BMI 25.5
--- NOTE | 2025-06-02 08:37 | A.OFFVIS_ITS ---
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 Patient complains of right hand pain on the radial aspect of the right thumb, that causes numbness on her on her right index, middle, ring, and small fingers. 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 Denies finger locking. Has tried hand braces but these made it worse. She has been taking Advil PRN and applying ice with relief. Denies any prior injuries or surgeries to the right hand.? IMPRESSION 05/10/25: 1. This is an abnormal study. 2. There is electrodiagnostic evidence for median neuropathy at the wrist, consistent with carpal tunnel syndrome. 3. There is no electrodiagnostic evidence for ulnar neuropathy, brachial plexopathy, or cervical radiculopathy. 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 Patient complains of right hand pain . 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 The patient reports that her numbness and tingling have not bothered her in 1-2 months, but she is still experiencing this pain. She reports that this pain is in the radial aspect of the wrist and radiates up into the hand and down into the forearm. Denies finger locking. Has tried hand braces but these made it worse. She has been taking Advil PRN and applying ice with relief. Denies any prior injuries or surgeries to the right hand.? IMPRESSION 05/10/25: 1. This is an abnormal study. 2. There is electrodiagnostic evidence for median neuropathy at the wrist, consistent with carpal tunnel syndrome. 3. There is no electrodiagnostic evidence for ulnar neuropathy, brachial plexopathy, or cervical radiculopathy. [facility] Medical History (Updated 06/02/25 @ 10:45 by JHONATHAN Rausch) Cardiomyopathy HFrEF (heart failure with reduced ejection fraction) Left bundle branch block Hypertension, essential Hyperlipidemia Sleep apnea Pneumothorax, closed, traumatic Pulmonary nodule Vaping nicotine dependence, tobacco product Personal history of nicotine dependence History of COVID-19 Hypothyroid History of Graves' disease Osteoporosis H/O compression fracture of spine Back pain Anxiety Depression Surgical History History of cardiac catheterization History of colonoscopy Family History Father Hypertension COPD (chronic obstructive pulmonary disease) Mother Hypertension Hypothyroid Social History (Updated 06/02/25 @ 08:43 by DEUCE Ruiz) Housing: House Alcohol intake: current Alcohol intake frequency: holidays/special occasions only Patient Tobacco Use Status: Current someday Tobacco user Tobacco use type: Cigarette Years Smoked: (onset 20yo, 1/2-3/4ppd x 34yrs, now vaping, occasional cigarette, 20+PYH) e-Cigarette/Vaping Use: Currently Using service: No Current occupational status: employed 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 Neuro: Normal sensation of the tips of all digits of the right hand at this time Vascular: Cap refill brisk Pain: Tenderness to palpation about the radial aspect of the volar right wrist Pain with resisted flexion of the right wrist in the radial aspect No pain with passive extension ROM: Patient is able to make a closed fist and extend all digits of the right hand fully Range of motion of the right wrist is full and intact, however this is painful Skin: No lacerations or abrasions. General: No ecchymosis, erythema, or evidence of infection. Psych: Appears grossly normal Affect normal Attitude cooperative Assessment & Plan Assessment & Plan (1) Flexor carpi radialis tendinitis of right wrist: Code(s): M77.8 - Other enthesopathies, not elsewhere classified Category: Medical (2) Right carpal tunnel syndrome: Code(s): G56.01 - Carpal tunnel syndrome, right upper limb Category: Medical Plan 1. FCR tendinitis of right wrist Patient is educated about this condition Patient is educated about the typical treatment course At this time, patient is provided with a Velcro wrist splint to wear when her wrist is particularly bothering her, but should remove periodically to work on range of motion of the right wrist Referral was also placed to occupational therapy to work on range of motion and strengthening of the right wrist in the setting of FCR tendinitis Patient is educated that it can take weeks to start noticing very good relief from OT for FCR tendinitis Patient understands this and is amenable to this plan 2. Carpal tunnel syndrome of right wrist No numbness at this time As the patient is not experiencing any numbness or tingling in the right hand, there is no acute intervention indicated for carpal tunnel syndrome at this time If the patient does begin to experience the symptoms, she should call our office for reassessment and discussion of intervention Patient understands this and is amenable to this Orders: Orders XR hand RT min 3V Today M79.641 - Pain in right hand OT Evaluation and Treatment Today M77.8 - Other enthesopathies, not elsewhere classified Coding Level of Care Code Complex visit Add On G2211 Diagnoses Flexor carpi radialis tendinitis of right wrist M77.8 Right carpal tunnel syndrome G56.01
== END 2025-06-02 09:43 | disposition home or self-care (01) ==
LOC: HO.HOS 08:32
PROVIDERS: PCP Internal Medicine
DX: M77.8 Other enthesopathies, not elsewhere classified (principal); G56.01 Carpal tunnel syndrome, right upper limb
CPT/HCPCS: 99213

== ENCOUNTER → 2025-06-02 09:03 | Outpatient (BNV) | payer OTHER, SELFPAY | PROVIDERS: PCP Internal Medicine; Visit Provider Radiology Diagnostic Radiology | DX: M79.641 Pain in right hand (principal) | CPT/HCPCS: 73130 ==